=== PATIENT | male | born 1945 | race Caucasian/White ===

== ENCOUNTER → 2019-04-30 11:18 | Outpatient (CLI) | payer MEDICARE, OTHER, SELFPAY ==
[2019-04-30 12:41] LABS: Cholesterol 152 mg/dL (140-199); HDL Cholesterol 28 mg/dL (40-60); LDL Cholesterol Calculated 93 mg/dL (<100); Triglycerides 154 mg/dL (35-150)
== END ==
PROVIDERS: Visit Provider Internal Medicine Cardiovascular Disease
DX: E78.5 Hyperlipidemia, unspecified (principal)
CPT/HCPCS: 36415; 80061

== ENCOUNTER → 2019-08-06 09:33 | Outpatient (CLI) | payer MEDICARE, OTHER, SELFPAY ==
[2019-08-06 10:39] LABS: Add Manual Diff / Slide Review NO; Basophils Absolute Auto 100 /uL (0-100); Basophils Percent Auto 0.9 % (0-2); Eosinophils Absolute Auto 300 /uL (0-450); Hematocrit 47.5 % (41-53); Lymphocytes Absolute Auto 1900 /uL (1100-4500); Lymphocytes Percent Auto 34.1 % (25-40); Mean Corpuscular HGB Conc 33.7 % (30-36); Mean Corpuscular Hemoglobin 29.1 PG (26-34); Mean Corpuscular Volume 86.5 fL (80-100); Monocytes Absolute Auto 600 /uL (0-900); Monocytes Percent Auto 10.6 % (3-14); Neutrophils Absolute Auto 2700 /uL (1500-7000); Neutrophils Percent Auto 49.4 % (50-75); Platelet Count 240 X10^3/uL (150-400); Red Blood Cell Count 5.49 X10^6/uL (4.5-5.9); White Blood Cell Count 5.6 X10^3/uL (4.5-11.0)
[2019-08-06 11:12] LABS: Blood Urea Nitrogen 18 mg/dL (9-20); Carbon Dioxide 32 mmol/L (22-32); Chloride 102 mmol/L (98-107); Cholesterol 105 mg/dL (140-199); Estimated Glomerular Filt Rate > 60.0 mL/min (>60); Glucose 82 mg/dL (80-110); HDL Cholesterol 27 mg/dL (40-60); HEMOLYSIS 37 (0-50); LDL Cholesterol Calculated 58 mg/dL (<100); Potassium 4.6 mmol/L (3.4-5.1); Sodium 140 mmol/L (137-145); Triglycerides 99 mg/dL (35-150)
== END ==
PROVIDERS: Visit Provider Internal Medicine Cardiovascular Disease
DX: E78.5 Hyperlipidemia, unspecified (principal); I48.0 Paroxysmal atrial fibrillation; I25.10 Atherosclerotic heart disease of native coronary artery without angina pectoris
CPT/HCPCS: 36415; 80048; 80061; 85025

== ENCOUNTER 2020-12-03 01:54 | Emergency (ER) | payer MEDICARE, OTHER, SELFPAY ==
[2020-12-03 02:05] VITALS: BP 152/75; PULSE 69; RESP 17; TEMP 36.7; O2SAT 96; BMI 39.3
--- NOTE | 2020-12-03 02:09 | ED.GENADULT ---
HPI - General Adult General Chief complaint: Back Pain/Injury Stated complaint: Back Pain Time Seen by Provider: 12/03/20 01:57 Source: patient Mode of arrival: EMS Limitations: no limitations History of Present Illness HPI narrative: 75-year-old male with known lumbar spine disc herniation who has seen orthopedic spine in the past and has had an MRI in the past who is here for evaluation of lower back pain and numbness to his right lower extremity. He states he was lying in bed last night in the numbness to his right lower extremity seem to get worse. He tried to get out of bed and could not because of the numbness. He lowered himself to the ground. He did not fall. He did not hit his head. He arrived by a EMS for evaluation. Related Data Previous Rx's Medication Instructions Recorded methylprednisolone [Medrol (Roman)] See Rx Instructions .ROUTE 12/03/20 .COMPLEX #21 ea Allergies Allergy/AdvReac Type Severity Reaction Status Date / Time No Known Drug Allergies Allergy Verified 12/03/20 02:05 Review of Systems Constitutional Constitutional: Denies fever(s) and Denies headache(s) ENT Ears, Nose, Mouth, and Throat: Denies vertigo and Denies headache(s) Genitourinary Genitourinary: Denies dysuria, Denies urinary frequency, Denies urinary hesitancy and Denies urinary incontinence Genitourinary: Denies urinary frequency, Denies dysuria, Denies urinary incontinence and Denies urinary hesitancy Musculoskeletal Musculoskeletal: Reports back pain, Reports numbness and Reports radiating pain into limb Integumentary/Breasts Skin/Breast: Denies rash Neurologic Neurologic: Denies vertigo, Denies headache(s) and Reports numbness Patient History Medical History Lower back pain Social History Smoking Status: Never smoker Exam Initial Vital Signs Initial Vital Signs: Vital Signs Temperature 98.1 F 12/03/20 02:05 Pulse Rate 69 12/03/20 02:05 Respiratory Rate 17 12/03/20 02:05 Blood Pressure 152/75 H 12/03/20 02:05 Pulse Oximetry 96 12/03/20 02:05 Const General: cooperative Limitations: mental status not altered HENMT Head: normal to inspection and normocephalic Resp Effort & Inspection: normal respiratory effort Cardio Rate: regular rate Skin Lesions: no lesions Rashes: no rashes Neuro Sensory Exam: other (Sensory deficits to light touch over the lateral aspect of his right leg) Extrem General: capillary refill normal Psych Appearance: grossly normal and well kempt Course Orders Ordered: Discontinued Medications Hydromorphone HCl (Hydromorphone 1 Mg Inj) 1 mg IM NOW ONE Stop: 12/03/20 02:11 Last Admin: 12/03/20 02:44 Dose: 1 mg Documented by: Ketorolac Tromethamine (Ketorolac 60 Mg/2 Ml Vial) 30 mg IM NOW ONE Stop: 12/03/20 02:11 Last Admin: 12/03/20 02:17 Dose: 30 mg Documented by: Vital Signs Vital signs: Vital Signs - 8 hr 12/03/20 02:05 Temperature 98.1 F Pulse Rate 69 Respiratory Rate 17 Blood Pressure 152/75 H Pulse Oximetry 96 Medical Decision Making [facility] Narrative Medical decision making narrative: Patient without symptoms that would make me concerned for cauda equina. He is afebrile. No indication for radiologic studies. He did not fall out of bed today. Was given Toradol pain medication. Was sent home with a steroid dose pack. Is given return precautions and follow-up instructions. He expressed understanding and agreement. Discharge Plan Departure Patient Disposition: Home Clinical Impression: Acute back pain with radiculopathy Instructions: DI for Back Pain With Sciatica Activity Restrictions/Additional Instructions: I do recommend that you continue with all of your medications as directed. Start taking the prednisone as directed. Contact your primary doctor and also your orthopedic hub inventory specialist for follow-up. Return to the emergency department for any new or worsening symptoms Prescriptions: New methylprednisolone [Medrol (Roman)] 4 mg tablets,dose pack See Rx Instructions .ROUTE .COMPLEX Qty: 21 RF: 0
[2020-12-03] MEDS: KETOROLAC 60 MG/2 ML VIAL 30 MG IM (02:17)
[2020-12-03] MEDS: HYDROMORPHONE 1 MG INJ IM (02:44)
[2020-12-03 03:06] VITALS: BP 131/60; PULSE 60; RESP 18; O2SAT 96
== END 2020-12-03 03:13 | disposition home or self-care (01) ==
PROVIDERS: Emergency Provider Emergency Medicine
DX: M51.17 Intervertebral disc disorders with radiculopathy, lumbosacral region (principal); R20.2 Paresthesia of skin
CPT/HCPCS: 99283; J1170; J1885

== ENCOUNTER → 2021-01-02 09:08 | Outpatient (CLI) | payer MEDICARE, OTHER, SELFPAY ==
[2021-01-02 13:08] LABS: COVID19 -Nasal RAPID Negative (Negative)
== END ==
PROVIDERS: PCP Family Medicine Sports Medicine; Visit Provider Physician Assistant
DX: Z20.822 Contact with and (suspected) exposure to COVID-19 (principal)
CPT/HCPCS: 87635

== ENCOUNTER 2021-01-04 11:22 | Inpatient (IN) | payer MEDICARE, OTHER, SELFPAY ==
[2020-12-29 08:23] VITALS: BMI 40.0
[2021-01-04] VITALS (16 sets, daily range): BP systolic 110–160; BP diastolic 55–96; PULSE 63–91; RESP 12–24; TEMP 36.3–37.1; O2SAT 93–99; BMI 39.3
--- NOTE | 2021-01-04 | DI.RAD.S_ITS ---
PROCEDURE: XR LUMBAR SPINE 2-3V INDICATIONS: L4-5 TLIF, L3-4 GANESH TECHNIQUE: 2 intraoperative fluoroscopic views of the lumbar spine were acquired. COMPARISON: [facility], , XR LUMBAR SPINE 2 OR 3 VIEWS, 04/22/2020, 13:27. FINDINGS: 2 limited intraoperative fluoroscopic images of the lumbar spine were acquired demonstrating interval posterior fusion of L4 and L5 with posterior paraspinal cindy and pedicular screw fixation. Status post L4-5 discectomy with placement interbody spacer device. Alignment appears stable compared to preoperative radiographic imaging. No evidence for acute hardware complication. IMPRESSION: Intraoperative fluoroscopic support for posterior spinal fusion of L4 and L5 without evidence for acute hardware complication. Please see operative report for further details. Dictated by: Hemant Dao M.D. on 01/04/2021 at 22:45 Approved by: Hemant Dao M.D. on 01/04/2021 at 22:49
--- NOTE | 2021-01-04 12:22 | SUR.PREOP ---
Pt difficult IV start. JOHANNA Richardson called to place line. Reported off to Katelyn Altamirano RN.
[2021-01-04] MEDS: LACTATED RINGERS 1,000 ML 100 ML IV ×3 (13:17→19:48)
--- NOTE | 2021-01-04 13:18 | SUR.PREOP ---
JOHANNA Richardson was unable to start IV under ultrasound. Total IV attempts = 7. 24 gauge started by JOHANNA Thomason.
[2021-01-04] MEDS: ACETAMINOPHEN 325 MG TABLET 975 MG PO (13:32)
--- NOTE | 2021-01-04 15:05 | PM.PREOP ---
Pre-operative Note COVID-19 COVID-19 status: Negative Result date/Date tested (Pos, Neg/Pending): 01/02/21 Interval Note History & Physical reviewed/Exam performed by Physician: Yes Changes to H&P: No
[2021-01-04] MEDS: CEFAZOLIN 2 GM/100 ML FROZ.PIGGY IV ×2 (16:04→23:36)
--- NOTE | 2021-01-04 16:18 | P.PCN_ITS ---
Procedures Date/Time Date of procedure: 01/04/21 Time of procedure: 15:55 Intubation Additional comments: DIFFICULT AIRWAY LETTER Name: Keith Nguyen Jr : 1945 Surgery: left L3-4 hemilaminectomy, L4-5 TLIF with posterior instrumentation by Dr. Crooks, 01/04/2021 You have been found to have a difficult airway. This means that it was challenging for an Anesthesiologist to put in a breathing tube. This may happen in the future as well, so please bring this letter or at least tell future providers of this issue. Exam: full boyd, BMI 39, mallampati score3 with small mouth opening, adequate prognathia, good thyromental distance and limited neck range of motion. Narrative: A general anesthetic with endotracheal tube was planned, and equipment for difficult airway available as exam was concerning. Smooth IV induction after 3 minutes of pre-oxygenation. Mask ventilation difficult with two hands and oropharyngeal airway (boyd affected seal). The glidescope was able to be inserted into mouth opening, but it was tight. An S4 blade on the glidescope was used. An 8.0 endotracheal tube was placed with use of stylette. (+) visualization of the tube through the cords and confirmation with capnograp hy. Successful technique: glidescope S4 blade with use of a stylette. Very Respectfully, Vero DAVENPORT Anesthesiologist
--- NOTE | 2021-01-04 16:23 | SUR.OPER ---
Prone on spine table, head in foam head support, padded chest and pelvic supports, gel pad at knees, lower legs supported by pillows; nipples, genitalia and toes free of pressure, arms secured on foam padded arm boards at <90 degrees abduction. Tape over blanket at thigh secured to table.
[2021-01-04] MEDS: BUPIVACAINE 0.25% W/ EPI (PF) 10 ML VIAL 30 ML INJ (16:32)
[2021-01-04] MEDS: BUPIVACAINE LIPOSOME 266 MG/20 ML VIAL INJ (16:32)
--- NOTE | 2021-01-04 18:58 | PM.OP.1 ---
Operative Date/Time/Diagnoses Date of procedure: 01/04/21 Time of procedure: 15:58 Pre-op diagnosis: 1. L4-5 spondylolisthesis 2. L3-4, L4-5 spinal stenosis with neurogenic claudication Post-op diagnosis: same Procedure & Clinicians Procedure: 1. L4-5 Postero-lateral and posterior interbody fusion 2. L4-5 interbody cage placement. 3. L4-5 decompressive laminectomy with bilateral facetecomies 4. L4-5 Posterior non-segmental instrumentation 5. L3-4 right hemilaminectomy 6. [place] of bone marrow from iliac crest 7. Utilization of microsurgical technique and operating microscope Same procedure as scheduled: Yes Indications: Patient has been having chronic back pain and worsening lumbar radiculopathy. Patient failed multiple conservative management with worsening pain weakness and numbness in her lower extremity. Patient has been having difficulty performing activity of daily living. After discussing risks benefits of treatment options, patient elected proceed with surgery. Surgeon: Andie Crooks Remelt Furnace Expediter: Erlin Rosario Click Yes if Unassisted: No Anesthesia Type: General Operative Notes Closure Type: primary Specimen(s): none sent Prosthetic devices, grafts, tissues, transplants, or devices: Globus revolve screws, Rise cage Estimated Blood Loss (mL): 50 Blood products transfused: none Procedure in detail: Patient was seen in the preoperative area. Risks and benefits of the surgery was discussed with the patient. Informed consent was obtained from the patient and placed in the chart. Surgical site was marked. Patient was taken to the operative room. General anesthesia was administered. Prophylactic antibiotic was given to the patient less than 30 min before the incision was made. Patient was placed into a prone position on the Solitario table. Patient's back was then prepped and draped in the sterile fashion. Time-out was performed at this time. Using AP and lateral C-arm imaging the interval between L3-4 L4-5 was identified and marked on patient's back. A 2 inch incision 2 in from midline was made on the right side first. The fascia was incised in line with skin incision. Globus MARS retractors was placed inside the incision and docked onto the L4 lamina. Using microsurgical technique and operating microscope, a L4 laminectomy and L4-5 facetectomy was performed using a Kerrison rongeur. The disc space at L4-5 was identified. And a total diskectomy was performed at L4-5 level. The endplates were decorticated using a rasp and shaver. The total diskectomy and decortication was performed at L4-5 level in order to to accomplish a L4-5 fusion. The local bone from the laminectomy and facetectomy was saved for local bone grafting. After the total diskectomy and decortication was completed, Globus Trifecta bone graft material was combined with local bone that was harvested earlier. At this time, a separate skin is incision was made over the iliac crest. A Jamshidi needle was inserted into the iliac crest through a separate skin incision. 5 cc of bone marrow aspiration was obtained through the separate skin incision using a Jamshidi needle from the iliac crest. The bone marrow aspiration was combined with local bone and the Trifecta bone grafting material. The bone grafting material was placed into the L4-5 interbody space along with a expandable cage. The cage was expanded to its maximum height using the torque limiting screwdriver. At this time the MARS retractor was redirected over the L3 lamina. Using microsurgical technique and operating microscope, a L3-4 heminectomy was performed using the Kerrison rongeur. The ligamentum flavum was also resected at the side of the hemilaminectomy for further decompression of the epidural space. At this time a mirror image incision was made on the Left side. The fascia was incised in line with the skin incision. Globus MARS retractor was inserted and docked onto the [] posterolateral gutter. Using the power drill, posterior-lateral decortication was performed at [] level until bleeding cortical bone was identified. The remaining bone grafting material was placed into the L4-5 posterior lateral gutter he order to accomplish posterolateral fusion at the L4-5 level. Using the double C-arm technique, pedicle screws were placed into the L4 and L5 pedicles bilaterally. This was done by placing the Jamshidi needle into the pedicles, then placing the guidewires over the Jamshidi needle, and finally placing the cannulated screws over the guidewires bilaterally. After the pedicle screws were placed, 2 titanium rods was locked into the heads of the pedicle screws using locking caps and torque limiting screwdriver. After all the hardware was placed, and confirmed with AP and lateral C-arm imaging, the wound was then irrigated with sterile normal saline and packed with Ray-Hector gauze for 3 min to accomplish hemostasis. After the gauze was removed the deep fascia was closed with #1 Vicryl suture. The subcutaneous layer was closed with 2-0 Vicryl. The skin was closed with skin teja. Patient tolerated the procedure well. There were no complications. Complications: none Post-operative Condition: stable Disposition: PACU Plan for aftercare: Admit to inpatient hospital
[2021-01-04] MEDS: fentaNYL 100 MCG/2 ML INJ IV ×2 (19:20→19:32)
[2021-01-04] MEDS: HYDROMORPHONE 2 MG INJ IV ×4 (19:23→20:04)
[2021-01-04] MEDS: OXYCODONE IR 5 MG TABLET PO (20:01)
--- NOTE | 2021-01-04 20:59 | SUR.PHASEI ---
Pt arrived with oral airway, placed on nasal cannula 02, airway out when more awake. c/o pain and medicated with fentanyl and dilaudid, when more awake and tolerating ice chips, given po pain med. Neuro checks WNL, dressing remained c/d/i. transported to room 218, left with Serena in stable condition, bed low and locked, SCD's on and call duggan in reach, pt instructed in use, voiced an understanding.
[2021-01-04] MEDS: SODIUM CHLORIDE 0.9% 1,000 ML 100 ML IV (22:07)
[2021-01-04] MEDS: SENNOSIDES 8.6 MG TABLET 17.2 MG PO (22:08)
[2021-01-04] MEDS: ACETAMINOPHEN 325 MG TABLET 650 MG PO (22:08)
[2021-01-04] MEDS: DOCUSATE 100 MG CAPSULE PO (22:08)
[2021-01-05] VITALS (9 sets, daily range): BP systolic 102–135; BP diastolic 18–78; PULSE 67–96; RESP 16–20; TEMP 36.2–37.6; O2SAT 94–99
[2021-01-05] MEDS: OXYCODONE IR 5 MG TABLET 10 MG PO ×6 (02:30→20:23)
[2021-01-05] MEDS: ACETAMINOPHEN 325 MG TABLET 650 MG PO (05:30)
[2021-01-05] MEDS: DOCUSATE 100 MG CAPSULE PO ×2 (08:59→20:23)
[2021-01-05] MEDS: ROSUVASTATIN 10 MG TABLET 2.5 MG PO (08:59)
[2021-01-05] MEDS: lisinopriL 5 MG TABLET 10 MG PO (08:59)
[2021-01-05] MEDS: CEFAZOLIN 2 GM/100 ML FROZ.PIGGY IV (09:01)
[2021-01-05] MEDS: MAGNESIUM HYDROXIDE 30 ML UDC PO (09:26)
--- NOTE | 2021-01-05 10:53 | OT.IP.EVAL ---
Current Diagnoses Obstructive sleep apnea (adult) (pediatric) (01/04/21) Spondylolisthesis, lumbar region (01/04/21) Spinal stenosis, lumbar region with neurogenic claudication (01/04/21) Dependence on other enabling machines and devices (01/04/21) Surgery Performed Operation Date: 01/04/21 13:15 Actual Procedures p L3-4 left hemilaminectomy, L4-5 TLIF w. posterior instrumentation - Andie Crooks MD Past Medical History (Last Reviewed 01/05/21 @ 11:09 by Jian Galdamez PA-C) Arthritis Asthma Atrial fibrillation CAD (coronary artery disease) Difficult airway Difficult intravenous access HLD (hyperlipidemia) HTN (hypertension) Leg edema Lower back pain KORTNEY on CPAP Prostate cancer (~2006) Sciatica Surgical History (Last Reviewed 01/05/21 @ 11:09 by Jian Galdamez PA-C) History of arthroplasty of right knee (~2015) History of arthroscopy of left shoulder History of bilateral carpal tunnel release History of surgery (01/2020) Hx of arthroscopy of left knee Hx of heart artery stent (10/2014) Hx of knee surgery Hx of prostatectomy Hx of tonsillectomy Occupational Therapy Inpatient Evaluation/Re-Eval M1 PT/OT-IP Prior Functional Status Start: 01/05/21 11:21 Freq: NEEDED Status: Active Protocol: Document 01/05/21 11:21 [facility] (Rec: 01/05/21 11:46 [facility] [id number]) Medical Review Prior Functional Status Medical History Reviewed Yes Communication Independent Mobility and Gait Pt states at has to use a cart to help get around [employer] , otherwise does not use any devices for his ambulation needs. 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 Pt states no longer able to do yard work. Social History Household Members spouse Living Arrangements House Number of Floors (Floors) Two Floors Number of Stairs To Enter/Railing? 1/2 step pt to get to his [place] Area where there is a recliner, couch/bed, and 1/2 bath. Approx 16 steps to his bedroom and bathroom with tub/shower.8 steps with left rail up and right side 1/2 wall, and for the other 8 steps up just wall left rail. Pt states to stay downstairs for now. Home Environment High Toilet,Tub/Shower Home Equipment Four Wheel Walker,Straight Cane M2 OT-IP Current Condition Start: 01/05/21 11:21 Freq: Status: Active Protocol: Document 01/05/21 11:21 [facility] (Rec: 01/05/21 11:46 [facility] [id number]) Occupational Therapy Current Condition Current Condition Evaluation Date 01/05/21 Treatment Diagnosis s/p L3-4, Left Hemilaminectomy , L4-5 TLIF, decreased mobility Diagnosis Onset Date 01/04/21 Post Operative Precautions Lumbar Precautions Log Roll,No Twisting,Limit Bending,Lifting Restriction of 10 lbs,Gait Belt above Incisional Area M3 OT- IP Subjective and Pain Start: 01/05/21 11:21 Freq: Status: Active Protocol: Document 01/05/21 11:21 [facility] (Rec: 01/05/21 11:46 [facility] [id number]) OT- Subjective Occupational Therapy Visit Type Type Initial Evaluation Visit Start Time 09:43 Visit Stop Time 10:53 Total Visit Minutes 70 Occupational Therapy Visit Comments Patient Comments Pt willing to get up for OT eval. Patient/Caregiver Goals TO go home and be able to work again. OT Pain Assessment Pain When Pain Assessed During Mobility Pain Present Pain Present Pain Reported Location back Intensity 7 Scale Used Numeric (0 - 10) M4 OT- IP ADL's Start: 01/05/21 11:21 Freq: Status: Active Protocol: Document 01/05/21 11:21 [facility] (Rec: 01/05/21 11:46 [facility] [id number]) OT [id number]-Gvgl-[id number] Comments OT Self-Feeding Comments NOt at meal time. OT ADL-Grooming General Evaluation Areas Needing Assistance Retrieving/Set-up of Grooming Items Educated to hinge at his hips or spit into a cup to best follow his back precautions. OT ADL-Oral Care General Eval Oral Care Ability Independent OT ADL-Dressing General Eval Lower Body Dressing Ability Maximum Assistance Comments OT Dressing Comments Able to educated pt of LB dressing equipment needs of account executive sales representative and socks aid . Pt states to just wears shorts and t-shirt and slip on shoes at home. OT ADL-Toileting General Evaluation Toileting Ability Standby Assistance,Maximum Assistance Comments OT Toileting Comments SBA to stand while toileting to urinate. Pt will require MAX A for after bowel movement needs as pt states had difficulty prior and mainly just went into the shower after each bowel movement. Spoke of possibility of bidet, toilet paper aid, or get assist from his . OT ADL-Bathing Comments OT Bathing Comments The tub/shower is upstairs and pt plans on sponge bathing initially. Pt may also benefit from a shower chair/tub bench to increased ease to get into and out of the tub. M5 OT- IP IADL's Start: 01/05/21 11:21 Freq: Status: Active Protocol: Document 01/05/21 11:21 [facility] (Rec: 01/05/21 11:46 [facility] [id number]) OT-Instrumental Activities of Daily Living Home Safety Awareness Awareness of Need for Assistance at Home Good Awareness Ability to Problem Solve Emergency Able to Problem Solve Situations Medication Management Medication Management Comments Pt a little groogy at this time and best to has provide superivision initially . Money Management Money Management Comments Pt a little groogy at this time and best to has provide superivision initially . Meal Preparation Meal Preparation Caregiver Provides Assist Clergy Member Clergy Member Caregiver Provides Assist M6 OT- IP Functional Cognition Start: 01/05/21 11:21 Freq: Status: Active Protocol: Document 01/05/21 11:21 [facility] (Rec: 01/05/21 11:46 [facility] [id number]) Cognitive Factors Limiting Selfcare Function Cognitive Ability Level of Alertness Alert Patient Orientation Name,Age,Birthday,Month,Date, Year,Day of Week,Place, Situation Attention Span Ability Capable of Focused Attention, Capable of Sustained Attention Ability to Follow Commands Able to Follow One Step Commands Safety Awareness Decreased Recall of Precautions,Decreased Ability to Apply Precautions, Underestimates Need for Assistance Cognitive Comments Cognitive Assessment Comments Pt needing assist to recall back precautions and to help incorporate during ADL and mobility needs. Pt needing vc for FWW safety and for placement of hands, feet when getting up and down from surfaces. OT- Vision and Hearing OT- Hearing Assessment OT- Hearing Assessment WFL OT- Vision Assessment Visual Acuity Glasses All The Time M7 OT- IP Mobility and Balance Start: 01/05/21 11:21 Freq: Status: Active Protocol: Document 01/05/21 11:21 [facility] (Rec: 01/05/21 11:46 [facility] [id number]) OT- Bed Mobility Assessment Rolling Level of Assistance Moderate Assistance Supine to Sit Supine to Sit Assist Moderate Assistance OT-Transfer Assessment Sit to and From Stand Sit to and from Stand Minimal Assistance Transfers Transfer Ability Minimal Assistance Technique Transfer Destination Bed,Chair Transfer Technique Stand Step Pivot Devices Transfer Assistive Devices Gait Belt,Front Wheeled Walker Comments Mobility Comments Use of grab bar to assist to roll and assist to get from sidelying to upright. DEVIN to stand and transfer with FWW. Pt tends to internally rotate his arms on the handles f the FWW when using FWW. OT- Gait Assessment Comments Gait Ability Comments CGA with FWW in the room. OT- Balance Assessment Sitting Balance and Reactions Static Sitting Balance Ability Normal Dynamic Sitting Balance Ability Good Standing Balance and Reactions Static Standing Balance Ability Fair M8 OT- IP Objective Assessments Start: 01/05/21 11:21 Freq: Status: Active Protocol: Document 01/05/21 11:21 [facility] (Rec: 01/05/21 11:46 [facility] [id number]) OT Strength Upper Extremity Strength Assessment Within Functional Limits OT-Muscle Tone Assessment Muscle Tone WNL Yes M9 OT- IP Assessment and Plan Start: 01/05/21 11:21 Freq: Status: Active Protocol: Document 01/05/21 11:21 [facility] (Rec: 01/05/21 11:46 [facility] [id number]) OT Summary Assessment and Plan Potential Rehabilitation Potential Good Analytic Complexity at Evaluation Low Summary OT Impairments Pain,Balance,Functional Cognition,Functional Mobility, Dressing,Toileting,Bathing, Toilet Transfers,Shower Transfers,Activity Tolerance Progress Towards Goals Progressing Toward Goals Assessment Summary Pt low complexity and main barriers are steps, pain, transitions for mobility and ADl's. Pt looking to possibly rent a hospital bed at home as his recliner is too soft and low, in addition to his couch/ bed being too low per pt. Pt progressing well so far and to continue to see pt for education of back precautions for ADl's and mobility needs. Pt looking to go home when medically stable and pending caregiver training. Goals Self-Feeding Goal Independent Grooming Goal Independent Dressing Goal Independent Toileting Goal Moderate Assistance Bathing Goal Independent Toilet Transfer Goal Independent Shower Transfer Goal Independent Patient/Caregiver Education Goal Demonstrate Post-Op Precautions,Caregiver Independent Assisting Patient Days to Meet Goals 5 Frequency of Treatment Frequency Of Treatment Once a Day Treatment Plan OT Treatment Plan ADL Training,Functional Cognition Training,Functional Mobility,Patient/Family Education,Discharge Planning Other Treatment Recommendations and Next shower Treatment Focus Discharge Recommendations OT Discharge Recommendations Home with Assistance Home Equipment Needs FWW, shower chair versus tub bench, BSC, and ? hospital bed Transportation Needs at Discharge Private Vehicle
--- NOTE | 2021-01-05 11:01 | PT.IIE ---
Current Diagnoses Obstructive sleep apnea (adult) (pediatric) (01/04/21) Spondylolisthesis, lumbar region (01/04/21) Spinal stenosis, lumbar region with neurogenic claudication (01/04/21) Dependence on other enabling machines and devices (01/04/21) Surgery Performed Operation Date: 01/04/21 13:15 Actual Procedures p L3-4 left hemilaminectomy, L4-5 TLIF w. posterior instrumentation - Andie Crooks MD Surgical History (Last Reviewed 01/05/21 @ 11:09 by Jian Galdamez PA-C) History of arthroplasty of right knee (~2015) History of arthroscopy of left shoulder History of bilateral carpal tunnel release History of surgery (01/2020) Hx of arthroscopy of left knee Hx of heart artery stent (10/2014) Hx of knee surgery Hx of prostatectomy Hx of tonsillectomy Medical History (Last Reviewed 01/05/21 @ 11:09 by Jian Galdamez PA-C) Arthritis Asthma Atrial fibrillation CAD (coronary artery disease) Difficult airway Difficult intravenous access HLD (hyperlipidemia) HTN (hypertension) Leg edema Lower back pain KORTNEY on CPAP Prostate cancer (~2006) Sciatica Physical Therapy Inpatient Evaluation/Re-Eval M1 PT/OT-IP Prior Functional Status Start: 01/05/21 11:21 Freq: NEEDED Status: Active Protocol: Document 01/05/21 11:21 [facility] (Rec: 01/05/21 11:46 [facility] [id number]) Medical Review Prior Functional Status Medical History Reviewed Yes Communication Independent Mobility and Gait Pt states at has to use a cart to help get around Home vanessa Guillermo does not need any devices for his ambulation needs. 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 Pt states no longer able to do yard work. Social History Household Members spouse Living Arrangements House Number of Floors (Floors) Two Floors Number of Stairs To Enter/Railing? 1/2 step pt to get to his [place] Area where there is a recliner, couch/bed, and 1/2 bath. Approx 16 steps to the his bedroom and bathroom 8 stepe with left rail up and right side 1/2 wall, and form the other 8 steps just wall left rail. Pt states to stay downstairs for now. 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 Pt states no longer able to do yard work. Social History Household Members spouse Living Arrangements House Number of Floors (Floors) Two Floors Number of Stairs To Enter/Railing? no steps to enter Has ~ 16 steps to bedroom level with L rail ascending Home Environment High Toilet,Tub/Shower Home Equipment Four Wheel Walker,Hand Held Shower Additional Social History Comment stated that headboard has rails/grills that pt uses to assist with bed mobility M2 PT-IP Current Condition Start: 01/05/21 12:47 Freq: NEEDED Status: Active Protocol: Document 01/05/21 11:01 AB (Rec: 01/05/21 13:07 [email or web address]) Physical Therapy Current Condition Current Condition Evaluation Date 01/05/21 Treatment Diagnosis s/p L4-5 fusion/cage/lami; L3- 4 R hemilami; difficulty in walking Onset Date 01/04/21 Precautions Lumbar Precautions Log Roll,No Twisting,Limit Bending,Lifting Restriction of 10 lbs,Gait Belt above Incisional Area M3 PT-IP Subjective Start: 01/05/21 12:47 Freq: NEEDED Status: Active Protocol: Document 01/05/21 11:01 AB (Rec: 01/05/21 13:07 [email or web address]) Subjective Physical Therapy Visit Type Type Initial Evaluation Visit Start Time 11:01 Visit Stop Time 11:46 Total Visit Minutes 45 Number of SPECIAL EDUCATION [employer] TE[employer]ER Visits 0 Physical Therapy Visit Comments Patient Comments pt is agreeable to do PT Therapy Pain Assessment Pain When Pain Assessed At Rest Pain Present Pain Present Pain Reported Location back Intensity 6 Scale Used Numeric (0 - 10) Pain Management Techniques Apply Cold,Distraction, Modification of Treatment,Re- positioning,Timing of Activity with Medications M4 PT-IP Mobility and Gait Start: 01/05/21 12:47 Freq: NEEDED Status: Active Protocol: Document 01/05/21 11:01 AB (Rec: 01/05/21 13:07 AB [id number]) PT-Bed Mobility Assessment Rolling Type of Rolling Log Rolling Level of Assist Standby Assistance Supine to Sit Supine to Sit Standby Assistance,Bedrails Sit to Supine Sit to Supine Standby Assistance,Bedrails PT-Transfer Assessment Sit to and From Stand Sit to and from Stand Minimal Assistance,1 Person Assistance Equipment Transfer Assistive Device Gait Belt,Front Wheeled Walker Orthotic/Prosthetic Devices or Brace: No Transfers Transfer Destination Bed,Chair Transfer Technique ambulated using FWW Transfer Ability Level of Assist Contact Guard Assistance,1 Person Assistance,Use of Upper Extremities Comments Mobility Comments reviewed back precautions and log roll with pt. pt completed sit to stand from chair x 2 reps requiring min A and cues for techniques. pt ambulated in room ~ 20 ft using FWW CGA and requested to use the toilet and ambulated to the toilet using FWW CGA. pt was able to maintan standing using FWW for support during toileting. ambulated out of the toilet towards the sink using FWW CGA and completed handwashing. pt ambulated towards the bed using FWW CGA. completed supine<>sit SBA with use of bed rail. pt stated that he uses his headboard at home to assist him with bed mobility. completed sit to stand from the bed min A and step transfer to chair using FWW CGA. positioned on chair. call light and table placed within reach. noted heavy UE use on FWW during transfers and ambulation. Gait Assessment Gait Gait Assistance Required: Contact Guard Assist Distance (Feet) 20 Able to Maintain Weight Bearing Status Yes During Gait Assistive Devices Assistive Device Gait Belt,Front Wheeled Walker Orthotic/Prosthetic Devices or Brace: No Gait Deviations General Gait Pattern Antalgic,Decreased Feet Clearance Factors Limiting Gait Function Factors Limiting Gait Function Decreased Activity Tolerance, Decreased Strength,Limited Range of Motion,Pain,Poor Balance,Poor Safety Awareness PT-Balance Assessment Sitting Balance and Reactions Static Sitting Balance Ability Good Dynamic Sitting Balance Ability Good Standing Balance and Reactions Static Standing Balance Ability Fair Dynamic Standing Balance Ability Fair Device Used FWW M5 PT-IP Objective Assessments Start: 01/05/21 12:47 Freq: NEEDED Status: Active Protocol: Document 01/05/21 11:01 AB (Rec: 01/05/21 13:07 [id number]) Orientation Orientation/Cognition Level of Alertness Alert Orientation Name,Age,Birthday,Month,Date, Year,Day of Week,Place, Situation Language Function Ability No Deficits Noted Safety Awareness Understands Safety Issues Memory Description No Deficits Noted Gross Range of Motion Lower Extremity ROM Assessment Within Functional Limits Strength Lower Extremity Strength Assessment Bilaterally Impaired Hip 3+/5 Coordination Assessment Gross Coordination Gross Coordination WNL Sensation Assessment Sensation Gross Sensation WNL Muscle Tone Muscle Tone WNL Yes M6 PT-IP Treatment Start: 01/05/21 12:47 Freq: NEEDED Status: Active Protocol: Document 01/05/21 11:01 AB (Rec: 01/05/21 13:07 [email or web address]) Physical Therapy Treatment Education Education Provided Precautions,Weight Bearing Status,Post-Op Packet,Safety M7 PT-IP Assessment and Plan Start: 01/05/21 12:47 Freq: NEEDED Status: Active Protocol: Document 01/05/21 11:01 AB (Rec: 01/05/21 13:07 [email or web address]) PT Summary Assessment and Plan Potential Rehabilitation Potential Good Status of Condition at Evaluation Stable Summary Impairments Pain,ROM,Strength,Balance, Coordination,Sensation,Tone, Cognition,Bed Mobility, Transfers,Gait,Activity Tolerance Assessment Summary pt requiring CGA to min A with mobility but unable to tolerate much activity and c/o pain. pt was only able to ambulate ~ 20 ft with heavy UE support on FWW during ambulation. pt plans to go home with spouse to assist. caregiver training will be conducted when appropriate. stair climbing training will also be conducted prior to d/c . will continue to assess progress. Goals Bed Mobility Goal Independent Transfer Goal Standby Assistance Gait Goal Standby Assistance Gait Distance 150 Other Goals up/down 16 steps L rail ascending SBA Days to Meet Goals 5 Frequency of Treatment Frequency Of Treatment Twice a Day Treatment Plan Physical Therapy Treatment Plan Bed Mobility Training,Transfer Training,Gait Training, Therapeutic Exercise,Balance Retraining,Post Op Education, Discharge Planning,Hot or Cold Pack,Neuromuscular Re-ed, Coordination Retraining,Manual Therapy Precautions Lumbar Precautions Log Roll,No Twisting,Limit Bending,Lifting Restriction of 10 lbs,Gait Belt above Incisional Area Recommendations To Nursing Amount of Assist Needed 1 Person Assist Discharge Recommendations PT Discharge Recommendations Home with Assistance Transportation Needs at Discharge Private Vehicle
--- NOTE | 2021-01-05 11:08 | PM.PNPO.1 ---
Subjective Subjective Date Patient Seen: 01/05/21 Time Patient Seen: 07:39 Interval history: Pain mild to moderate. Denies fever chills. No nausea vomiting. Exam Vital Signs (past 8 hours): - 01/05/21 05:12 01/05/21 07:55 Temperature 97.3 F L 97.2 F L Pulse Rate 72 67 Respiratory Rate 18 16 Blood Pressure 135/75 132/72 Pulse Oximetry 97 99 Oxygen Delivery Method Room Air,CPAP Oxygen Flow Rate 0 Narrative Exam Narrative: 75-year-old male sitting comfortably in the bedside chair in no apparent distress. Motor functions intact bilateral lower extremities. Sensation grossly intact to light touch bilateral lower extremities. Dressing is Clean, dry, intact.. PFSH Medical History Arthritis Asthma Atrial fibrillation CAD (coronary artery disease) Difficult airway Difficult intravenous access HLD (hyperlipidemia) HTN (hypertension) Leg edema Lower back pain KORTNEY on CPAP Prostate cancer (~2006) Sciatica Surgical History History of arthroplasty of right knee (~2015) History of arthroscopy of left shoulder History of bilateral carpal tunnel release History of surgery (01/2020) Hx of arthroscopy of left knee Hx of heart artery stent (10/2014) Hx of knee surgery Hx of prostatectomy Hx of tonsillectomy Social History household members: spouse Smoking Status: Never smoker alcohol intake: never Assessment & Plan Post-op Postoperative Procedures: Procedures Operation Date: 01/04/21 13:15 Actual Procedures Side Surgeon p L3-4 left hemilaminectomy, L4-5 TLIF w. posterior instrumentation Andie Crooks MD Patient progressing as expected. Postop day 1. Mobilize with physical therapy. Limit bending, twisting, lifting. Likely discharge home tomorrow.
--- NOTE | 2021-01-05 11:45 | CM.DANOTE ---
Addendum entered by Layla Hamilton LPN 01/05/21 11:54: Met with pt as planned and introduced self and role. Pt is found sitting up in bedside chair, getting ready to eat lunch. He confirms that he does plan to d/c to home when stable for same and with Olivia's prn assist. He says he has been getting about at the home but it has been increasing hard due to the pain and he is glad to have had the surgery now. He does live in a 2 story home with stairs but says sharla Galdamez assured him today that this should not be a problem for him. Assured him that DCP team would be following as his stay continues to assist with d/c needs as these become clearer. Original Note: Discharge Planning/Care Management\ DCP: assessment: case received and discussed in Team Rounds. EMR reviewed. Pt is a 75 year old male who admitted yesterday for a scheduled spinal surgery: TLIF with Dr. Crooks. PCP: Kareem Sears Payer: Medicare and commercial insurance Admission status: Confirmed INPT: per LIZZIE Coffey. PT and OT are ordered but will see pt for first time today and no notes are yet available. Pt has surgery very late yesterday and arrive to the acute care floor late at night. Will check in with pt now to continued the assessment process. CM Discharge Assessment Start: 01/05/21 11:44 Freq: Status: Active Protocol: Document 01/05/21 11:44 ITV (Rec: 01/05/21 11:45 ITV [id number]) Discharge Planning Assessment Advance Directives? Yes: Pt unsure Prior Living Arrangements House Household Members spouse Document 01/05/21 11:44 ITV (Rec: 01/05/21 11:45 ITV [id number]) Discharge Planning Assessment Advance Directives? Yes: Pt unsure Prior Living Arrangements House Household Members spouse Document 01/05/21 11:44 ITV (Rec: 01/05/21 11:45 ITV [id number]) Discharge Planning Assessment Advance Directives? Yes: Pt unsure History Provided By Medical Record Prior Living Arrangements House Household Members spouse Is patient alert and oriented? Yes Review Status In Process Pre-Anesthesia Assessment Start: 12/29/20 08:23 Freq: Status: Active Protocol: Document 12/29/20 08:23 CAB (Rec: 12/29/20 09:41 [facility] [id number]) Pre-Anesthesia Assessment Preferred Name Morteza Patient Information Reviewed Via Phone Assessment Assessment Completed With Patient H&P Completed Within 30 Days Yes Diagnostic Results CBC,EKG Comment Outside lab/EKG scanned to record-COVID screen @ Primary Care Provider Kareem Sears Seen Specialist in Last 12 Months Yes Specialist Seen Embryology Teacher,Emergency, Orthopedist Primary Language Chinese Sterilization Tech Required No Height 180.34 cm Weight 130.181 kg Body Mass Index (BMI) 40.0 Hearing Ability Normal Visual Assist Glasses Dentition Type Teeth, Natural Present Barriers to Learning None Hx Anesthesia Reactions Yes: I have a small mouth, it 's challenge Hx Family Anesthesia Reaction No Hx Malignant Hyperthermia No Hx Blood Transfusions No Anesthesia Review Requested No alcohol intake never Smoking Status Never smoker Substance Use Type does not use Pain Present Pain Reported Musculoskeletal Symptoms Abnormal Gait,Back Pain, Difficulty Walking,Limited Range of Motion,Myalgias, Numbness,Radiating Pain into Limb,Tingling History of Falling (Recent or History of No ) Patient is completely paralyzed or No completely immobile Mental Status Oriented to own ability Is patient on oxygen? No Does patient have FIGUEREDO/SOB Yes: Feels r/t deconditioning Hx Chest Pain Yes: Prior to 2014 Hx SOB Yes: Feels r/t deconditioning Hx Syncope or Dizziness No Anti-Coagulant Therapy Yes: ASA 81mg-pt check w/ cardiology on whether to hold Has a Embryology Teacher Yes: Dr. Ge-last visit 11/16 Cardiac Testing Yes: Echo 11/20/20 @ [facility] Hx Pacemaker/ICD No Pacemaker Rep Required? No Cardiac Clearance Received No Comment Cardiac clearance visit 11/16/20 , Echo scanned Diet Type At Home Regular dysphagia No Genitourinary Symptoms Change in Urinary Stream, Dribbling Bladder Pattern Frequency Urinary Catheter Present No Hx Urinary Self Catheterization No Diabetes No Presence of External or Internal Medical Yes: Cardiac stent, right knee Devices hardware, CPAP, urethral implant Have you had any close contact with No someone diagnosed with COVID-19? Marital Status Lives With spouse Prior Living Arrangements House Number of Floors (Floors) Two Floors Support System Spouse Does the Patient Have Assistance After Yes Surgery Patient Discharge Plan Description Return Home Comment Pt not advised on length of stay per surgeon Feels Safe in Current Environment Yes Been Physically Hurt or Threatened By a No Person in Current Environment Do you have thoughts of harming yourself None or others? Are you currently considering suicide? No Do you have a plan to hurt yourself or No Plan others? Do You Have Any Spiritual Beliefs That No May Affect Your HC Choices? Do You Have Any Cultural Practices That No May Affect Your HC Choices? Comment Syn[employer] Who Can We Speak to About Patient's Care Family, friends Identifying Code for Release of Patient Declines to issue Information Health Care Proxy/Next of Kin Olivia () Health Care Proxy Emergency Contact Name Olivia () Florentino (son) Emergency Contact Phone Number Olivia: [phone] Florentino: Advance Directives? Yes: Pt unsure Requested Patient Bring Advanced Yes Directives DOS Power of Bus Monitor No: Pt unsure PAC Instructions Bring CPAP/BIPAP,Durable medical equipment,Medications to take/avoid,Nasal antibiotic ,No ETOH/petroleum product on skin DOS,NPO,Pre-surgical wash ,Sensory aids,Sturdy shoes/ comfortable clothes,Do not bring valuables and remove jewelry
[2021-01-05] MEDS: hydrOXYzine pamoate 25 MG CAPSULE PO ×2 (13:29→20:57)
[2021-01-05] MEDS: HYDROMORPHONE 0.5 MG INJ IV ×4 (13:43→23:32)
--- NOTE | 2021-01-05 15:20 | PT-IP ANOTE ---
checked on pt x 2 but pt continues to refuse PT. c/o increase back pain and stated that he just wants to rest at this time.
[2021-01-05] MEDS: SENNOSIDES 8.6 MG TABLET 17.2 MG PO (20:23)
[2021-01-06] MEDS: ACETAMINOPHEN 325 MG TABLET 650 MG PO ×4 (00:57→23:13)
[2021-01-06] MEDS: OXYCODONE IR 5 MG TABLET 10 MG PO ×3 (00:57→08:39)
[2021-01-06] MEDS: HYDROMORPHONE 0.5 MG INJ IV ×2 (03:08→10:04)
[2021-01-06 04:55] VITALS: BP 129/65; PULSE 62; RESP 16; TEMP 36.1; O2SAT 97
--- NOTE | 2021-01-06 07:39 | PM.PNPO.1 ---
Subjective Subjective Date Patient Seen: 01/06/21 Time Patient Seen: 07:40 Interval history: Pain is moderate. Denies fever or chills. No nausea or vomiting. Patient having little more pain than yesterday. Exam Vital Signs (past 8 hours): - 01/05/21 23:41 01/06/21 04:55 Temperature 98.8 F 97.0 F L Pulse Rate 69 62 Respiratory Rate 16 16 Blood Pressure 110/51 L 129/65 Pulse Oximetry 94 97 Oxygen Delivery Method Room Air,CPAP Oxygen Flow Rate 0 Narrative Exam Narrative: 75-year-old male resting comfortably in bed in no apparent distress. Motor functions intact bilateral lower extremities. Sensation grossly intact to light touch. [facility] Medical History Arthritis Asthma Atrial fibrillation CAD (coronary artery disease) Difficult airway Difficult intravenous access HLD (hyperlipidemia) HTN (hypertension) Leg edema Lower back pain KORTNEY on CPAP Prostate cancer (~2006) Sciatica Surgical History History of arthroplasty of right knee (~2015) History of arthroscopy of left shoulder History of bilateral carpal tunnel release History of surgery (01/2020) Hx of arthroscopy of left knee Hx of heart artery stent (10/2014) Hx of knee surgery Hx of prostatectomy Hx of tonsillectomy Social History household members: spouse Smoking Status: Never smoker alcohol intake: never Assessment & Plan Post-op Postoperative Procedures: Procedures Operation Date: 01/04/21 13:15 Actual Procedures Side Surgeon p L3-4 left hemilaminectomy, L4-5 TLIF w. posterior instrumentation Andie Crooks MD Postop day 2 status post L4-L5 posterolateral and posterior interbody fusion interbody cage placement, decompressive laminectomy with bilateral facetectomies, posterior nonsegmental instrumentation, right hemilaminectomy. Mobilize with physical therapy. Continue to work on pain management. Limit bending, twisting, lifting. Patient refused physical therapy twice yesterday evening secondary to increased back pain and stated that he does want to rest. Patient's BMI is 39.3.
[2021-01-06 07:45] VITALS: BP 121/56; PULSE 64; RESP 17; TEMP 36.4; O2SAT 97
[2021-01-06] MEDS: lisinopriL 5 MG TABLET 10 MG PO (08:39)
[2021-01-06] MEDS: hydrOXYzine pamoate 25 MG CAPSULE PO (08:39)
[2021-01-06] MEDS: ROSUVASTATIN 10 MG TABLET 2.5 MG PO (08:40)
[2021-01-06] MEDS: DOCUSATE 100 MG CAPSULE PO ×2 (08:40→21:18)
[2021-01-06 11:15] VITALS: BP 120/57; PULSE 63; RESP 16; TEMP 36.6; O2SAT 98
--- NOTE | 2021-01-06 12:29 | PT.IPTN ---
Current Diagnoses Obstructive sleep apnea (adult) (pediatric) (01/04/21) Spondylolisthesis, lumbar region (01/04/21) Spinal stenosis, lumbar region with neurogenic claudication (01/04/21) Dependence on other enabling machines and devices (01/04/21) Surgery Performed Operation Date: 01/04/21 13:15 Actual Procedures p L3-4 left hemilaminectomy, L4-5 TLIF w. posterior instrumentation - Andie Crooks MD Physical Therapy Treatment Note M2 PT-IP Current Condition Start: 01/05/21 12:47 Freq: NEEDED Status: Active Protocol: Document 01/05/21 11:01 AB (Rec: 01/05/21 13:07 AB [id number]) Physical Therapy Current Condition Current Condition Evaluation Date 01/05/21 Treatment Diagnosis s/p L4-5 fusion/cage/lami; L3- 4 R hemilami; difficulty in walking Onset Date 01/04/21 Precautions Lumbar Precautions Log Roll,No Twisting,Limit Bending,Lifting Restriction of 10 lbs,Gait Belt above Incisional Area M3 PT-IP Subjective Start: 01/05/21 12:47 Freq: NEEDED Status: Active Protocol: Document 01/06/21 11:58 SP (Rec: 01/06/21 13:22 SP [id number]) Subjective Physical Therapy Visit Type Type Treatment Note Visit Start Time 11:58 Visit Stop Time 12:29 Total Visit Minutes 31 Notes Pt called on 1st attempt to set up caregiver training at 1130. not in attendence when returned x2. Nurse and PLANNER CHIEF provided additional physical assistance during tx. Number of TECHNICAL COMMUNICATOR Visits 1 Physical Therapy Visit Comments Patient Comments Pt lethargic but agreeable to working with therapy on 3rd attempt. Therapy Pain Assessment Pain When Pain Assessed During Mobility Pain Present Pain Present Pain Reported Location back Scale Used not quantified Description With Movement Pain Behaviors Facial Grimacing,Holding Area, Moaning Pain Management Techniques Modification of Treatment,Re- positioning,Timing of Activity with Medications M4 PT-IP Mobility and Gait Start: 01/05/21 12:47 Freq: NEEDED Status: Active Protocol: Document 01/06/21 11:58 SP (Rec: 01/06/21 13:22 SP [id number]) PT-Bed Mobility Assessment Rolling Type of Rolling Log Rolling,Bilateral Level of Assist Maximal Assistance,2 Person Assistance Supine to Sit Supine to Sit Maximum Assistance,2 Person Assistance,Head of Bed Elevated,Bedrails Sit to Supine Sit to Supine Maximum Assistance,1 Person Assistance,2 Person Assistance Scooting Scooting to Edge of Bed Maximum Assistance PT-Transfer Assessment Sit to and From Stand Sit to and from Stand Maximum Assistance,2 Person Assistance,Use of Upper Extremities Equipment Transfer Assistive Device Gait Belt,Front Wheeled Walker Orthotic/Prosthetic Devices or Brace: No Transfers Transfer Destination Bed Transfer Technique Pt side step to R at EOB using FWW Transfer Ability Level of Assist Maximum Assistance,2 Person Assistance,Use of Upper Extremities Comments Mobility Comments Pt very lathargic this late am tx, premedicated prior to tx. Instructed LE heel slides w/ Mod A x3 reps BLE. Completed log roll Max x2 person w/ contact assist reach for bed rail L SL> sitting Max Ax2 person, scoot forward to EOB Max Ax3 w/ use of transfer pad . Sitting balance Max A x1 with heavy UE WB on bed and cuing for trunk wt shift forward BLE support on floor. Sit<> stand Max A x2 heavy WB through BUE, cued for knee extension/ tall posture and able stand for 1 min, wt shift but not lift LEs. Sit>stand Max x2 and lateral side step 1 .5 ft Max A x2 inch at time toward HOB, assist at times for wt shift and FWW repositioning with max cuing for BLE sequencing each. Sit>L SL>supine Max A x3 persons. Pt required MaxA x2 for centering trunk in bed usign transfer pad. Pt had call light and all needs in reach before left, nurse in room. Gait Assessment Gait Gait Assistance Required: Contact Guard Assist Distance (Feet) 2 Able to Maintain Weight Bearing Status Yes During Gait Assistive Devices Assistive Device Gait Belt,Front Wheeled Walker Orthotic/Prosthetic Devices or Brace: No Gait Deviations General Gait Pattern Antalgic,Decreased Stride Length,Decreased Feet Clearance,Flexed Trunk,Lateral Trunk Lean,Step-to Gait,Wide Based Gait Factors Limiting Gait Function Factors Limiting Gait Function Decreased Activity Tolerance, Decreased Strength,Difficulty Following Directions,Limited Range of Motion,Pain,Poor Balance,Poor Safety Awareness Comments Gait Comments See mobility comments for details. Stair Climbing Assessment Comments Stair Climbing Comments Unable at this time. PT-Balance Assessment Sitting Balance and Reactions Static Sitting Balance Ability Poor Dynamic Sitting Balance Ability Poor Standing Balance and Reactions Static Standing Balance Ability Poor Dynamic Standing Balance Ability Poor Device Used FWW M5 PT-IP Objective Assessments Start: 01/05/21 12:47 Freq: NEEDED Status: Active Protocol: Document 01/05/21 11:01 AB (Rec: 01/05/21 13:07 AB [id number]) Orientation Orientation/Cognition Level of Alertness Alert Orientation Name,Age,Birthday,Month,Date, Year,Day of Week,Place, Situation Language Function Ability No Deficits Noted Safety Awareness Understands Safety Issues Memory Description No Deficits Noted Gross Range of Motion Lower Extremity ROM Assessment Within Functional Limits Strength Lower Extremity Strength Assessment Bilaterally Impaired Hip 3+/5 Coordination Assessment Gross Coordination Gross Coordination WNL Sensation Assessment Sensation Gross Sensation WNL Muscle Tone Muscle Tone WNL Yes M6 PT-IP Treatment Start: 01/05/21 12:47 Freq: NEEDED Status: Active Protocol: Document 01/06/21 11:58 SP (Rec: 01/06/21 13:22 SP [id number]) Physical Therapy Treatment Education Education Provided Precautions,Weight Bearing Status,Safety M7 PT-IP Assessment and Plan Start: 01/05/21 12:47 Freq: NEEDED Status: Active Protocol: Document 01/06/21 11:58 SP (Rec: 01/06/21 13:22 SP [id number]) PT Summary Assessment and Plan Potential Rehabilitation Potential Good Status of Condition at Evaluation Stable Summary Impairments Pain,ROM,Strength,Balance, Coordination,Sensation,Tone, Cognition,Bed Mobility, Transfers,Gait,Activity Tolerance Progress Towards Goals Slow Progress due to Pain,Slow Progress due to Activity Tolerance Assessment Summary Pt required significant increase in physical assist this am tx, max A x2-3 persons during all mobility and use of fWW. Nurse reported pt maybe lethargic due to medication. At this time recommending skilled rehab. Will continue to assess progress this pm. Goals Bed Mobility Goal Independent Transfer Goal Standby Assistance Gait Goal Standby Assistance Gait Distance 150 Other Goals up/down 16 steps L rail ascending SBA Days to Meet Goals 5 Frequency of Treatment Frequency Of Treatment Twice a Day Treatment Plan Physical Therapy Treatment Plan Bed Mobility Training,Transfer Training,Gait Training, Therapeutic Exercise,Balance Retraining,Post Op Education, Discharge Planning,Hot or Cold Pack,Neuromuscular Re-ed, Coordination Retraining,Manual Therapy Other Recommendations and Next Treatment Bed mobility, transfers, gait Focus using fWW, stair mgt if able, caregiver training when appropriate. Precautions Lumbar Precautions Log Roll,No Twisting,Limit Bending,Lifting Restriction of 10 lbs,Gait Belt above Incisional Area Recommendations To Nursing Amount of Assist Needed 2 Person Assist,3 or More Person Assist Discharge Recommendations PT Discharge Recommendations Home vs SNF Transportation Needs at Discharge Private Vehicle,Wheelchair/ Cabulance
--- NOTE | 2021-01-06 12:29 | PT.IPTN ---
Current Diagnoses Obstructive sleep apnea (adult) (pediatric) (01/04/21) Spondylolisthesis, lumbar region (01/04/21) Spinal stenosis, lumbar region with neurogenic claudication (01/04/21) Dependence on other enabling machines and devices (01/04/21) Surgery Performed Operation Date: 01/04/21 13:15 Actual Procedures p L3-4 left hemilaminectomy, L4-5 TLIF w. posterior instrumentation - Andie Crooks MD Physical Therapy Treatment Note M2 PT-IP Current Condition Start: 01/05/21 12:47 Freq: NEEDED Status: Active Protocol: Document 01/05/21 11:01 AB (Rec: 01/05/21 13:07 AB [id number]) Physical Therapy Current Condition Current Condition Evaluation Date 01/05/21 Treatment Diagnosis s/p L4-5 fusion/cage/lami; L3- 4 R hemilami; difficulty in walking Onset Date 01/04/21 Precautions Lumbar Precautions Log Roll,No Twisting,Limit Bending,Lifting Restriction of 10 lbs,Gait Belt above Incisional Area M3 PT-IP Subjective Start: 01/05/21 12:47 Freq: NEEDED Status: Active Protocol: Document 01/06/21 16:11 SP (Rec: 01/06/21 13:22 SP [id number]) Subjective Physical Therapy Visit Type Type Treatment Note Visit Start Time 11:58 Visit Stop Time 12:29 Total Visit Minutes 31 Notes Pt called on 1st attempt to set up caregiver training at 1130. not in attendence when returned x2. Nurse and SECONDARY SET UP MAN provided additional physical assistance during tx. Number of POWER SUPERINTENDENT Visits 1 Physical Therapy Visit Comments Patient Comments Pt lethargic but agreeable to working with therapy on 3rd attempt. Therapy Pain Assessment Pain When Pain Assessed During Mobility Pain Present Pain Present Pain Reported Location back Scale Used not quantified Description With Movement Pain Behaviors Facial Grimacing,Holding Area, Moaning Pain Management Techniques Modification of Treatment,Re- positioning,Timing of Activity with Medications M4 PT-IP Mobility and Gait Start: 01/05/21 12:47 Freq: NEEDED Status: Active Protocol: Document 01/06/21 16:11 SP (Rec: 01/06/21 13:22 SP [id number]) PT-Bed Mobility Assessment Rolling Type of Rolling Log Rolling,Bilateral Level of Assist Maximal Assistance,2 Person Assistance Supine to Sit Supine to Sit Maximum Assistance,2 Person Assistance,Head of Bed Elevated,Bedrails Sit to Supine Sit to Supine Maximum Assistance,1 Person Assistance,2 Person Assistance Scooting Scooting to Edge of Bed Maximum Assistance PT-Transfer Assessment Sit to and From Stand Sit to and from Stand Maximum Assistance,2 Person Assistance,Use of Upper Extremities Equipment Transfer Assistive Device Gait Belt,Front Wheeled Walker Orthotic/Prosthetic Devices or Brace: No Transfers Transfer Destination Bed Transfer Technique Pt side step to R at EOB using FWW Transfer Ability Level of Assist Maximum Assistance,2 Person Assistance,Use of Upper Extremities Comments Mobility Comments Pt very lathargic this late am tx, premedicated prior to tx. Instructed LE heel slides w/ Mod A x3 reps BLE. Completed log roll Max x2 person w/ contact assist reach for bed rail L SL> sitting Max Ax2 person, scoot forward to EOB Max Ax3 w/ use of transfer pad . Sitting balance Max A x1 with heavy UE WB on bed and cuing for trunk wt shift forward BLE support on floor. Sit<> stand Max A x2 heavy WB through BUE, cued for knee extension/ tall posture and able stand for 1 min, wt shift but not lift LEs. Sit>stand Max x2 and lateral side step 1 .5 ft Max A x2 inch at time toward HOB, assist at times for wt shift and FWW repositioning with max cuing for BLE sequencing each. Sit>L SL>supine Max A x3 persons. Pt required MaxA x2 for centering trunk in bed usign transfer pad. Pt had call light and all needs in reach before left, nurse in room. Gait Assessment Gait Gait Assistance Required: Maximum Assistance,2 Person Assist Distance (Feet) 2 Able to Maintain Weight Bearing Status Yes During Gait Assistive Devices Assistive Device Gait Belt,Front Wheeled Walker Orthotic/Prosthetic Devices or Brace: No Gait Deviations General Gait Pattern Antalgic,Decreased Stride Length,Decreased Feet Clearance,Flexed Trunk,Lateral Trunk Lean,Step-to Gait,Wide Based Gait Factors Limiting Gait Function Factors Limiting Gait Function Decreased Activity Tolerance, Decreased Strength,Difficulty Following Directions,Limited Range of Motion,Pain,Poor Balance,Poor Safety Awareness Comments Gait Comments See mobility comments for details. Stair Climbing Assessment Comments Stair Climbing Comments Unable at this time. PT-Balance Assessment Sitting Balance and Reactions Static Sitting Balance Ability Poor Dynamic Sitting Balance Ability Poor Standing Balance and Reactions Static Standing Balance Ability Poor Dynamic Standing Balance Ability Poor Device Used FWW M5 PT-IP Objective Assessments Start: 01/05/21 12:47 Freq: NEEDED Status: Active Protocol: Document 01/05/21 11:01 AB (Rec: 01/05/21 13:07 AB [id number]) Orientation Orientation/Cognition Level of Alertness Alert Orientation Name,Age,Birthday,Month,Date, Year,Day of Week,Place, Situation Language Function Ability No Deficits Noted Safety Awareness Understands Safety Issues Memory Description No Deficits Noted Gross Range of Motion Lower Extremity ROM Assessment Within Functional Limits Strength Lower Extremity Strength Assessment Bilaterally Impaired Hip 3+/5 Coordination Assessment Gross Coordination Gross Coordination WNL Sensation Assessment Sensation Gross Sensation WNL Muscle Tone Muscle Tone WNL Yes M6 PT-IP Treatment Start: 01/05/21 12:47 Freq: NEEDED Status: Active Protocol: Document 01/06/21 16:11 SP (Rec: 01/06/21 13:22 SP [id number]) Physical Therapy Treatment Education Education Provided Precautions,Weight Bearing Status,Safety M7 PT-IP Assessment and Plan Start: 01/05/21 12:47 Freq: NEEDED Status: Active Protocol: Document 01/06/21 16:11 SP (Rec: 01/06/21 13:22 SP [id number]) PT Summary Assessment and Plan Potential Rehabilitation Potential Good Status of Condition at Evaluation Stable Summary Impairments Pain,ROM,Strength,Balance, Coordination,Sensation,Tone, Cognition,Bed Mobility, Transfers,Gait,Activity Tolerance Progress Towards Goals Slow Progress due to Pain,Slow Progress due to Activity Tolerance Assessment Summary Pt required significant increase in physical assist this am tx, max A x2-3 persons during all mobility and use of fWW. Nurse reported pt maybe lethargic due to medication. At this time recommending skilled rehab. Will continue to assess progress this pm. Goals Bed Mobility Goal Independent Transfer Goal Standby Assistance Gait Goal Standby Assistance Gait Distance 150 Other Goals up/down 16 steps L rail ascending SBA Days to Meet Goals 5 Frequency of Treatment Frequency Of Treatment Twice a Day Treatment Plan Physical Therapy Treatment Plan Bed Mobility Training,Transfer Training,Gait Training, Therapeutic Exercise,Balance Retraining,Post Op Education, Discharge Planning,Hot or Cold Pack,Neuromuscular Re-ed, Coordination Retraining,Manual Therapy Other Recommendations and Next Treatment Bed mobility, transfers, gait Focus using fWW, stair mgt if able, caregiver training when appropriate. Precautions Lumbar Precautions Log Roll,No Twisting,Limit Bending,Lifting Restriction of 10 lbs,Gait Belt above Incisional Area Recommendations To Nursing Amount of Assist Needed 2 Person Assist,3 or More Person Assist Discharge Recommendations PT Discharge Recommendations Home vs SNF Transportation Needs at Discharge Private Vehicle,Wheelchair/ Cabulance
--- NOTE | 2021-01-06 13:37 | OT.IPNOTE ---
Attempted to see pt for OT treatment and pt states does not feel well, in too much pain , and wanting to be seen tomorrow. To attempt to see pt tomorrow for shower if appropriate.
[2021-01-06] MEDS: OXYCODONE IR 5 MG TABLET 15 MG PO ×3 (14:59→23:13)
[2021-01-06 15:35] VITALS: BP 136/69; PULSE 85; RESP 18; TEMP 37.3; O2SAT 93
--- NOTE | 2021-01-06 15:55 | CM.DPC ---
DCP Cont: Met with patient, as it is noted that he is a max assist with transfers. He did work with P.T. Brought him a Medicare Choice List for him to review. Stated, he really didn't want to go to a facility if he doesn't have to. Having Deena at [facility] review. P: DCP to continue to follow. Patient could be ready for discharge, home is initial plan, but may need long term rehab. Deena at [facility] has referral. Charis Le RN/Weston Richardson
--- NOTE | 2021-01-06 16:35 | PT.IPTN ---
Addendum entered and electronically signed by Deloris Guillaume PTA 01/06/21 17:18: Pt's wants to attend 01/07/21 am tx, call her to let her know. Original Note: Current Diagnoses Obstructive sleep apnea (adult) (pediatric) (01/04/21) Spondylolisthesis, lumbar region (01/04/21) Spinal stenosis, lumbar region with neurogenic claudication (01/04/21) Dependence on other enabling machines and devices (01/04/21) Surgery Performed Operation Date: 01/04/21 13:15 Actual Procedures p L3-4 left hemilaminectomy, L4-5 TLIF w. posterior instrumentation - Andie Crooks MD Physical Therapy Treatment Note M2 PT-IP Current Condition Start: 01/05/21 12:47 Freq: NEEDED Status: Active Protocol: Document 01/05/21 11:01 AB (Rec: 01/05/21 13:07 AB [id number]) Physical Therapy Current Condition Current Condition Evaluation Date 01/05/21 Treatment Diagnosis s/p L4-5 fusion/cage/lami; L3- 4 R hemilami; difficulty in walking Onset Date 01/04/21 Precautions Lumbar Precautions Log Roll,No Twisting,Limit Bending,Lifting Restriction of 10 lbs,Gait Belt above Incisional Area M3 PT-IP Subjective Start: 01/05/21 12:47 Freq: NEEDED Status: Active Protocol: Document 01/06/21 16:10 SP (Rec: 01/06/21 17:05 SP [id number]) Subjective Physical Therapy Visit Type Type Treatment Note Visit Start Time 16:10 Visit Stop Time 16:35 Total Visit Minutes 25 Notes CARRIER OPERATOR provided physical assist with mobility. Number of COMBER SETTER Visits 2 Physical Therapy Visit Comments Patient Comments Pt willing to work with therapy on 2nd attempt for pm tx, unable to keep eyes open 1st attempt. Pt has a hard time staying awake, premedicated prior to tx. Patient Goals Return home with to assist him. Therapy Pain Assessment Pain When Pain Assessed During Mobility Pain Present Pain Present Pain Reported Location back Scale Used not quantified Description With Movement Pain Behaviors Facial Grimacing,Holding Area, Moaning Pain Management Techniques Modification of Treatment,Re- positioning,Timing of Activity with Medications M4 PT-IP Mobility and Gait Start: 01/05/21 12:47 Freq: NEEDED Status: Active Protocol: Document 01/06/21 16:10 SP (Rec: 01/06/21 17:05 SP [id number]) PT-Bed Mobility Assessment Rolling Type of Rolling Log Rolling,Bilateral Level of Assist Maximal Assistance,1 Person Assistance Supine to Sit Supine to Sit Maximum Assistance,1 Person Assistance,Head of Bed Elevated,Bedrails Scooting Scooting to Edge of Bed Maximum Assistance PT-Transfer Assessment Sit to and From Stand Sit to and from Stand Minimal Assistance,Maximum Assistance,2 Person Assistance ,Use of Upper Extremities Equipment Transfer Assistive Device Gait Belt,Front Wheeled Walker Orthotic/Prosthetic Devices or Brace: No Transfers Transfer Destination Chair Transfer Technique Stand Step Pivot Transfer Ability Level of Assist Contact Guard Assistance, Moderate Assistance,2 Person Assistance,Use of Upper Extremities Comments Mobility Comments Pt's eyes were open when returned 2nd attempt. Max A x1 for LR L using bed rail, L SL >sit heavy Max A x1 support for LE repositioning to EOB and at upper trunk for righting to sitting. Max A x1 for scooting to EOB and support with cuing for forward trunk posture BUE WB on bed self progression. Sit>stand Max A x1 , Min A 2nd person, SPT using fWW to chair with max cuing for sequencing each step and support for fWW repositioning and assist for wt shifting over stance LE to allow opposite foot clearance. [place] cuing for reaching back and Mod A for slow descent into chair. Max A for each LE scoot back in chair with BUE self WB on chair arms. COMBER SETTER assisted pt reclined in chair with chair alarm donned, call light and all needs in reach pt immediately fell asleep. Pt continues to demonstrate being extremely tired this tx with mobility, at times difficulty expressing thoughts . COMBER SETTER expressed increase physical assist needed during tx with evening nurse, nurse reported assesssing medication balance for pain and allow activity tolerance but maybe it was to much. Gait Assessment Gait Gait Assistance Required: Contact Guard Assist,Moderate Assistance,2 Person Assist Distance (Feet) 3 Able to Maintain Weight Bearing Status Yes During Gait Assistive Devices Assistive Device Gait Belt,Front Wheeled Walker Orthotic/Prosthetic Devices or Brace: No Gait Deviations General Gait Pattern Ataxic,Decreased Stride Length ,Decreased Feet Clearance, Flexed Trunk,Lateral Trunk Lean,Step-to Gait,Wide Based Gait Factors Limiting Gait Function Factors Limiting Gait Function Decreased Activity Tolerance, Decreased Strength,Difficulty Following Directions,Limited Range of Motion,Pain,Poor Balance,Poor Safety Awareness Comments Gait Comments SPT bed>chair using FWW, see mobility comments. Stair Climbing Assessment Comments Stair Climbing Comments Unable at this time. PT-Balance Assessment Sitting Balance and Reactions Static Sitting Balance Ability Poor Dynamic Sitting Balance Ability Poor Standing Balance and Reactions Static Standing Balance Ability Poor Dynamic Standing Balance Ability Poor Device Used FWW M5 PT-IP Objective Assessments Start: 01/05/21 12:47 Freq: NEEDED Status: Active Protocol: Document 01/05/21 11:01 AB (Rec: 01/05/21 13:07 AB [id number]) Orientation Orientation/Cognition Level of Alertness Alert Orientation Name,Age,Birthday,Month,Date, Year,Day of Week,Place, Situation Language Function Ability No Deficits Noted Safety Awareness Understands Safety Issues Memory Description No Deficits Noted Gross Range of Motion Lower Extremity ROM Assessment Within Functional Limits Strength Lower Extremity Strength Assessment Bilaterally Impaired Hip 3+/5 Coordination Assessment Gross Coordination Gross Coordination WNL Sensation Assessment Sensation Gross Sensation WNL Muscle Tone Muscle Tone WNL Yes M6 PT-IP Treatment Start: 01/05/21 12:47 Freq: NEEDED Status: Active Protocol: Document 01/06/21 16:10 SP (Rec: 01/06/21 17:05 SP [id number]) Physical Therapy Treatment Exercises Exercises Ankle Pumps,Heel Slides Knee ROM Measurement 50 deg w/ Mod A Education Education Provided Precautions,Weight Bearing Status,Safety Other Treatments Other Treatment Performed Pt comments that can't feel toes move as much, demonstrates good movement toe flexion/ extension. M7 PT-IP Assessment and Plan Start: 01/05/21 12:47 Freq: NEEDED Status: Active Protocol: Document 01/06/21 16:10 SP (Rec: 01/06/21 17:05 SP [id number]) PT Summary Assessment and Plan Potential Rehabilitation Potential Good Status of Condition at Evaluation Stable Summary Impairments Pain,ROM,Strength,Balance, Coordination,Sensation,Tone, Cognition,Bed Mobility, Transfers,Gait,Activity Tolerance Progress Towards Goals Slow Progress due to Pain,Slow Progress due to Activity Tolerance Assessment Summary Pt required Max x1 bed mobility, Max/ Mod x2 persons sit<>stand, Mod/CGA x2 persons during transfers using fWW bed>chair. Pt would benefit from skilled therapy SNF to improve strength and functional mobility at this time. Will continue to assess progress. Goals Bed Mobility Goal Independent Transfer Goal Standby Assistance Gait Goal Standby Assistance Gait Distance 150 Other Goals up/down 16 steps L rail ascending SBA Days to Meet Goals 5 Frequency of Treatment Frequency Of Treatment Twice a Day Treatment Plan Physical Therapy Treatment Plan Bed Mobility Training,Transfer Training,Gait Training, Therapeutic Exercise,Balance Retraining,Post Op Education, Discharge Planning,Hot or Cold Pack,Neuromuscular Re-ed, Coordination Retraining,Manual Therapy Other Recommendations and Next Treatment Bed mobility, transfers, gait Focus using fWW, stairs with safe and able. Precautions Lumbar Precautions Log Roll,No Twisting,Limit Bending,Lifting Restriction of 10 lbs,Gait Belt above Incisional Area Recommendations To Nursing Amount of Assist Needed 2 Person Assist Discharge Recommendations PT Discharge Recommendations SNF Rehab Transportation Needs at Discharge Private Vehicle,Wheelchair/ Cabulance
[2021-01-06] MEDS: diazePAM 2 MG TABLET PO (20:04)
[2021-01-06 20:24] VITALS: BP 149/75; PULSE 73; RESP 22; TEMP 37.5; O2SAT 95
[2021-01-06] MEDS: SENNOSIDES 8.6 MG TABLET 17.2 MG PO (21:18)
[2021-01-06 23:43] VITALS: BP 154/76; PULSE 94; RESP 18; TEMP 37.7; O2SAT 94
[2021-01-07] VITALS (7 sets, daily range): BP systolic 121–137; BP diastolic 70–94; PULSE 81–105; RESP 16–18; TEMP 36.4–37.4; O2SAT 93–96
[2021-01-07] MEDS: OXYCODONE IR 5 MG TABLET 15 MG PO ×5 (02:32→19:12)
[2021-01-07] MEDS: ACETAMINOPHEN 325 MG TABLET 650 MG PO (05:12)
[2021-01-07] MEDS: lisinopriL 5 MG TABLET 10 MG PO (09:47)
[2021-01-07] MEDS: ROSUVASTATIN 10 MG TABLET 2.5 MG PO (09:48)
[2021-01-07] MEDS: DOCUSATE 100 MG CAPSULE PO ×2 (09:48→19:11)
--- NOTE | 2021-01-07 10:37 | PT.IPTN ---
Current Diagnoses Obstructive sleep apnea (adult) (pediatric) (01/04/21) Spondylolisthesis, lumbar region (01/04/21) Spinal stenosis, lumbar region with neurogenic claudication (01/04/21) Dependence on other enabling machines and devices (01/04/21) Surgery Performed Operation Date: 01/04/21 13:15 Actual Procedures p L3-4 left hemilaminectomy, L4-5 TLIF w. posterior instrumentation - Andie Crooks MD Physical Therapy Treatment Note M2 PT-IP Current Condition Start: 01/05/21 12:47 Freq: NEEDED Status: Active Protocol: Document 01/05/21 11:01 AB (Rec: 01/05/21 13:07 AB [id number]) Physical Therapy Current Condition Current Condition Evaluation Date 01/05/21 Treatment Diagnosis s/p L4-5 fusion/cage/lami; L3- 4 R hemilami; difficulty in walking Onset Date 01/04/21 Precautions Lumbar Precautions Log Roll,No Twisting,Limit Bending,Lifting Restriction of 10 lbs,Gait Belt above Incisional Area M3 PT-IP Subjective Start: 01/05/21 12:47 Freq: NEEDED Status: Active Protocol: Document 01/07/21 10:22 CLB (Rec: 01/07/21 12:54 CLB [id number]) Subjective Physical Therapy Visit Type Type Treatment Note Visit Start Time 10:22 Visit Stop Time 10:37 Total Visit Minutes 15 Number of FOOD SERVICE COUNTER CLERK Visits 3 Physical Therapy Visit Comments Patient Comments Pt reports no pain while laying in bed upon arrival willing to work with therapy. Therapy Pain Assessment Pain When Pain Assessed During Mobility Pain Present Pain Present Pain Reported Location back Intensity 10 Description With Movement Pain Behaviors Facial Grimacing,Holding Area, Moaning Pain Management Techniques Modification of Treatment,Re- positioning,Timing of Activity with Medications M4 PT-IP Mobility and Gait Start: 01/05/21 12:47 Freq: NEEDED Status: Active Protocol: Document 01/07/21 10:22 CLB (Rec: 01/07/21 12:54 CLB [id number]) PT-Bed Mobility Assessment Rolling Type of Rolling Log Rolling,Bilateral Level of Assist Maximal Assistance,2 Person Assistance PT-Transfer Assessment Comments Mobility Comments Pt willing to get up but with movement of LE's pain increased to 10/10 with shaking, pt requested to have pain meds before attempting to get OOB and asked to bed repositioned in bed. RN called and RN assist Max Ax2 to bring pt to HOB and to assist with LR for position change. Pt left in bed with alarm on and all needs within reach. Gait Assessment Comments Gait Comments unable Stair Climbing Assessment Comments Stair Climbing Comments Unable at this time. PT-Balance Assessment Sitting Balance and Reactions Static Sitting Balance Ability Poor Dynamic Sitting Balance Ability Poor Standing Balance and Reactions Static Standing Balance Ability Poor Dynamic Standing Balance Ability Poor Device Used FWW M5 PT-IP Objective Assessments Start: 01/05/21 12:47 Freq: NEEDED Status: Active Protocol: Document 01/05/21 11:01 AB (Rec: 01/05/21 13:07 AB [id number]) Orientation Orientation/Cognition Level of Alertness Alert Orientation Name,Age,Birthday,Month,Date, Year,Day of Week,Place, Situation Language Function Ability No Deficits Noted Safety Awareness Understands Safety Issues Memory Description No Deficits Noted Gross Range of Motion Lower Extremity ROM Assessment Within Functional Limits Strength Lower Extremity Strength Assessment Bilaterally Impaired Hip 3+/5 Coordination Assessment Gross Coordination Gross Coordination WNL Sensation Assessment Sensation Gross Sensation WNL Muscle Tone Muscle Tone WNL Yes M6 PT-IP Treatment Start: 01/05/21 12:47 Freq: NEEDED Status: Active Protocol: Document 01/06/21 16:11 SP (Rec: 01/06/21 13:22 SP [id number]) Physical Therapy Treatment Education Education Provided Precautions,Weight Bearing Status,Safety M7 PT-IP Assessment and Plan Start: 01/05/21 12:47 Freq: NEEDED Status: Active Protocol: Document 01/07/21 10:22 CLB (Rec: 01/07/21 12:54 CLB [id number]) PT Summary Assessment and Plan Potential Rehabilitation Potential Good Status of Condition at Evaluation Stable Summary Impairments Pain,ROM,Strength,Balance, Coordination,Sensation,Tone, Cognition,Bed Mobility, Transfers,Gait,Activity Tolerance Progress Towards Goals Slow Progress due to Pain,Slow Progress due to Activity Tolerance Assessment Summary Pt unable to get up after attempt to get to EOB. Pt with pain of 10/10. Pt required Max A x2 for bed mobility for position change and moving to HOB. Pt will require SNF rehab to increase activity tolerance before returning home. Goals Bed Mobility Goal Independent Transfer Goal Standby Assistance Gait Goal Standby Assistance Gait Distance 150 Other Goals up/down 16 steps L rail ascending SBA Days to Meet Goals 5 Frequency of Treatment Frequency Of Treatment Twice a Day Treatment Plan Physical Therapy Treatment Plan Bed Mobility Training,Transfer Training,Gait Training, Therapeutic Exercise,Balance Retraining,Post Op Education, Discharge Planning,Hot or Cold Pack,Neuromuscular Re-ed, Coordination Retraining,Manual Therapy Other Recommendations and Next Treatment Bed mobility, transfers, gait Focus using fWW, stair mgt if able, caregiver training when appropriate. Precautions Lumbar Precautions Log Roll,No Twisting,Limit Bending,Lifting Restriction of 10 lbs,Gait Belt above Incisional Area Recommendations To Nursing Amount of Assist Needed 2 Person Assist,3 or More Person Assist Discharge Recommendations PT Discharge Recommendations SNF Rehab Transportation Needs at Discharge Wheelchair/Cabulance
--- NOTE | 2021-01-07 11:09 | CM.DPC ---
DCP Cont: Discussed discharge planning with patient briefly. Patient was sleepy. Let him know that [facility] can accept patient today. Patient reluctant to go to skilled nursing, TEVIN Fair, also in room and emphasized that it is for temporary rehab before going home. Left Erlin Rosario, PAC in ortho a message that [facility] can accept, versus going home today. has not yet been in. P: DCP to continue to follow, and will see if patient can be discharged today. Charis Le RN/Model Engine Mechanic
--- NOTE | 2021-01-07 11:54 | PM.PNPO.1 ---
Subjective Subjective Date Patient Seen: 01/07/21 Time Patient Seen: 11:54 Interval history: Patient states he is in a moderate amount of discomfort. Patient reports good sensation throughout the bilateral lower extremities to light touch. At this time patient denies fever, chills, nausea, urinary retention, shortness of breath, or chest pain. Exam Vital Signs (past 8 hours): - 01/07/21 08:00 01/07/21 09:47 Temperature 98 F Pulse Rate 83 83 Respiratory Rate 16 Blood Pressure 121/81 121/81 Pulse Oximetry 94 Oxygen Delivery Method Room Air,CPAP Oxygen Flow Rate 0 Narrative Exam Narrative: 75-year-old male postop day 3. Patient is resting in bed, is alert and oriented x3, and is in no acute distress. Skin is warm and dry, and the skin surrounding the incision is free of erythema, warmth, induration, or discharge. Good sensation throughout the bilateral lower extremities to light touch. Calves are soft and nontender, negative Homans sign. Ankle inversion, eversion, dorsiflexion, plantar flexion are performed bilaterally without difficulty or discomfort. Hip flexion performed bilaterally without difficulty or discomfort. Capillary refill less than 2 seconds. No other signs of DVT appreciated. Const General: cooperative and healthy appearing Resp Effort & Inspection: normal respiratory effort and able to speak in complete sentences Skin General: no rashes or lesions noted PFSH Medical History Arthritis Asthma Atrial fibrillation CAD (coronary artery disease) Difficult airway Difficult intravenous access HLD (hyperlipidemia) HTN (hypertension) Leg edema Lower back pain KORTNEY on CPAP Prostate cancer (~2006) Sciatica Surgical History History of arthroplasty of right knee (~2015) History of arthroscopy of left shoulder History of bilateral carpal tunnel release History of surgery (01/2020) Hx of arthroscopy of left knee Hx of heart artery stent (10/2014) Hx of knee surgery Hx of prostatectomy Hx of tonsillectomy Social History household members: spouse Smoking Status: Never smoker alcohol intake: never Assessment & Plan Post-op Postoperative Procedures: Procedures Operation Date: 01/04/21 13:15 Actual Procedures Side Surgeon p L3-4 left hemilaminectomy, L4-5 TLIF w. posterior instrumentation Andie Crooks MD Postoperative day: 3 Postoperative plan narrative: Patient is to continue working on ambulation with physical therapy. Patient is to continue current pain control regimen. Decadron 4 mg IV q.6 been ordered to help alleviate additional pain. Time Spent With Patient Time with patient: 15-24 minutes
[2021-01-07] MEDS: DEXAMETHASONE 4 MG/ML VIAL IV ×2 (12:11→17:44)
[2021-01-07] MEDS: diazePAM 2 MG TABLET PO (12:50)
[2021-01-07] MEDS: HYDROMORPHONE 0.5 MG INJ IV (13:28)
--- NOTE | 2021-01-07 14:06 | PT.IPTN ---
Current Diagnoses Obstructive sleep apnea (adult) (pediatric) (01/04/21) Spondylolisthesis, lumbar region (01/04/21) Spinal stenosis, lumbar region with neurogenic claudication (01/04/21) Dependence on other enabling machines and devices (01/04/21) Surgery Performed Operation Date: 01/04/21 13:15 Actual Procedures p L3-4 left hemilaminectomy, L4-5 TLIF w. posterior instrumentation - Andie Crooks MD Physical Therapy Treatment Note M2 PT-IP Current Condition Start: 01/05/21 12:47 Freq: NEEDED Status: Active Protocol: Document 01/05/21 11:01 AB (Rec: 01/05/21 13:07 AB [id number]) Physical Therapy Current Condition Current Condition Evaluation Date 01/05/21 Treatment Diagnosis s/p L4-5 fusion/cage/lami; L3- 4 R hemilami; difficulty in walking Onset Date 01/04/21 Precautions Lumbar Precautions Log Roll,No Twisting,Limit Bending,Lifting Restriction of 10 lbs,Gait Belt above Incisional Area M3 PT-IP Subjective Start: 01/05/21 12:47 Freq: NEEDED Status: Active Protocol: Document 01/07/21 13:39 CLB (Rec: 01/07/21 15:47 CLB [id number]) Subjective Physical Therapy Visit Type Type Treatment Note Visit Start Time 13:39 Visit Stop Time 14:06 Total Visit Minutes 25 Notes Co-treat with OT Number of HOSPICE COORDINATOR Visits 3 Physical Therapy Visit Comments Patient Comments Pt willing to transfer to chair. Therapy Pain Assessment Pain When Pain Assessed During Mobility Pain Present Pain Present Pain Reported Location back Scale Used did not state Description With Movement Pain Behaviors Facial Grimacing,Wincing Pain Management Techniques Modification of Treatment,Re- positioning,Timing of Activity with Medications M4 PT-IP Mobility and Gait Start: 01/05/21 12:47 Freq: NEEDED Status: Active Protocol: Document 01/07/21 13:39 CLB (Rec: 01/07/21 15:47 CLB [id number]) PT-Bed Mobility Assessment Rolling Type of Rolling Log Rolling Level of Assist Maximal Assistance,2 Person Assistance Supine to Sit Supine to Sit Total Assistance,2 Person Assistance,Bedrails Scooting Scooting to Edge of Bed Maximum Assistance PT-Transfer Assessment Sit to and From Stand Sit to and from Stand Maximum Assistance,2 Person Assistance,Use of Upper Extremities Equipment Transfer Assistive Device Gait Belt,Front Wheeled Walker Orthotic/Prosthetic Devices or Brace: No Transfers Transfer Destination Chair Transfer Technique Stand Step Pivot Transfer Ability Level of Assist Maximum Assistance,2 Person Assistance,Use of Upper Extremities Comments Mobility Comments Pt requiring Max A x2 for LR and Total A x2 for sidelying to sit, pt then required Max A to scoot to EOB with use of draw sheet. Pt has difficulty following directions and requiring cues to keep eyes open. Pt able to take small stand pivot steps to chair with help managing walker and third person standing in front of walker for safety. Pt sat with Max A and cues to slow descent. Pt left in chair sitting upright with table in front of pt, call light within reach. Stair Climbing Assessment Comments Stair Climbing Comments Unable at this time. PT-Balance Assessment Sitting Balance and Reactions Static Sitting Balance Ability Poor Dynamic Sitting Balance Ability Poor Standing Balance and Reactions Static Standing Balance Ability Poor Dynamic Standing Balance Ability Poor Device Used FWW M5 PT-IP Objective Assessments Start: 01/05/21 12:47 Freq: NEEDED Status: Active Protocol: Document 01/05/21 11:01 AB (Rec: 01/05/21 13:07 AB [id number]) Orientation Orientation/Cognition Level of Alertness Alert Orientation Name,Age,Birthday,Month,Date, Year,Day of Week,Place, Situation Language Function Ability No Deficits Noted Safety Awareness Understands Safety Issues Memory Description No Deficits Noted Gross Range of Motion Lower Extremity ROM Assessment Within Functional Limits Strength Lower Extremity Strength Assessment Bilaterally Impaired Hip 3+/5 Coordination Assessment Gross Coordination Gross Coordination WNL Sensation Assessment Sensation Gross Sensation WNL Muscle Tone Muscle Tone WNL Yes M6 PT-IP Treatment Start: 01/05/21 12:47 Freq: NEEDED Status: Active Protocol: Document 01/06/21 16:11 SP (Rec: 01/06/21 13:22 SP [id number]) Physical Therapy Treatment Education Education Provided Precautions,Weight Bearing Status,Safety M7 PT-IP Assessment and Plan Start: 01/05/21 12:47 Freq: NEEDED Status: Active Protocol: Document 01/07/21 13:39 CLB (Rec: 01/07/21 15:47 CLB [id number]) PT Summary Assessment and Plan Potential Rehabilitation Potential Good Status of Condition at Evaluation Stable Summary Impairments Pain,ROM,Strength,Balance, Coordination,Sensation,Tone, Cognition,Bed Mobility, Transfers,Gait,Activity Tolerance Progress Towards Goals Slow Progress due to Pain,Slow Progress due to Activity Tolerance Assessment Summary Pt requiring Max A x2-Total A for all mobility. Pt able to transfer to chair with Max A x2-3 persons for safety with cues sequencing transfer and assist with walker management. Pt will benefit from SNF rehab to increase strength for improved activity tolerance and strength for independent mobility. Goals Bed Mobility Goal Independent Transfer Goal Standby Assistance Gait Goal Standby Assistance Gait Distance 150 Other Goals up/down 16 steps L rail ascending SBA Days to Meet Goals 5 Frequency of Treatment Frequency Of Treatment Twice a Day Treatment Plan Physical Therapy Treatment Plan Bed Mobility Training,Transfer Training,Gait Training, Therapeutic Exercise,Balance Retraining,Post Op Education, Discharge Planning,Hot or Cold Pack,Neuromuscular Re-ed, Coordination Retraining,Manual Therapy Other Recommendations and Next Treatment Bed mobility, transfers, gait Focus using fWW, stair mgt if able, caregiver training when appropriate. Precautions Lumbar Precautions Log Roll,No Twisting,Limit Bending,Lifting Restriction of 10 lbs,Gait Belt above Incisional Area Recommendations To Nursing Amount of Assist Needed 2 Person Assist,3 or More Person Assist Discharge Recommendations PT Discharge Recommendations SNF Rehab Transportation Needs at Discharge Wheelchair/Cabulance
--- NOTE | 2021-01-07 14:06 | OT.IP.TRT ---
Current Diagnoses Obstructive sleep apnea (adult) (pediatric) (01/04/21) Spondylolisthesis, lumbar region (01/04/21) Spinal stenosis, lumbar region with neurogenic claudication (01/04/21) Dependence on other enabling machines and devices (01/04/21) Surgery Performed Operation Date: 01/04/21 13:15 Actual Procedures p L3-4 left hemilaminectomy, L4-5 TLIF w. posterior instrumentation - Andie Crooks MD Occupational Therapy Treatment Note M2 OT-IP Current Condition Start: 01/05/21 11:21 Freq: Status: Active Protocol: Document 01/05/21 11:21 [facility] (Rec: 01/05/21 11:46 [facility] [id number]) Occupational Therapy Current Condition Current Condition Evaluation Date 01/05/21 Treatment Diagnosis s/p L3-4, Left Hemilaminectomy , L4-5 YLIF, decreased mobility Diagnosis Onset Date 01/04/21 Post Operative Precautions Lumbar Precautions Log Roll,No Twisting,Limit Bending,Lifting Restriction of 10 lbs,Gait Belt above Incisional Area M3 OT- IP Subjective and Pain Start: 01/05/21 11:21 Freq: Status: Active Protocol: Document 01/07/21 14:09 [facility] (Rec: 01/07/21 14:18 [facility] [id number]) OT- Subjective Occupational Therapy Visit Type Type Treatment Note Visit Start Time 13:38 Visit Stop Time 14:06 Total Visit Minutes 28 Occupational Therapy Visit Comments Patient Comments Able to time pain medications with nursing, pt agreed to get up. Patient/Caregiver Goals Pt insistent that he wants to go home. OT Pain Assessment Pain When Pain Assessed At Rest Pain Present Pain Present Denied Pain M4 OT- IP ADL's Start: 01/05/21 11:21 Freq: Status: Active Protocol: Document 01/07/21 14:09 [facility] (Rec: 01/07/21 14:18 [facility] [id number]) OT [id number] Comments OT Self-Feeding Comments NOt at meal time. OT ADL-Grooming Comments OT Grooming Comments NOt performed. OT ADL-Dressing General Eval Lower Body Dressing Ability Maximum Assistance OT ADL-Toileting General Evaluation Toileting Ability Maximum Assistance Comments OT Toileting Comments DEVIN x 2 to stand with FWW while nurse able to assist to hold urinal in place and assist with hygiene needs. OT ADL-Bathing Comments OT Bathing Comments Not performed. M6 OT- IP Functional Cognition Start: 01/05/21 11:21 Freq: Status: Active Protocol: Document 01/07/21 14:09 [facility] (Rec: 01/07/21 14:18 [facility] [id number]) Cognitive Factors Limiting Selfcare Function Cognitive Ability Level of Alertness Drowsy Patient Orientation Name Attention Span Ability Capable of Focused Attention, Unable to Sustain Attention Ability to Follow Commands Able to Follow One Step Commands with Increased Time, Able to Follow One Step Commands with Repetition Safety Awareness Decreased Recall of Precautions,Decreased Ability to Apply Precautions, Underestimates Need for Assistance Cognitive Comments Cognitive Assessment Comments Pt very drowsy and groggy and having difficulty to stay awake and follow commands and needing hand over hand assist for hand placement and for FWW safety. Pt not able to recall back precautions without looking at the board. Pt not remembering that he was in the hospital. M7 OT- IP Mobility and Balance Start: 01/05/21 11:21 Freq: Status: Active Protocol: Document 01/07/21 14:09 [facility] (Rec: 01/07/21 14:18 [facility] [id number]) OT- Bed Mobility Assessment Rolling Type of Rolling Roll to Left Level of Assistance Maximum Assistance,2 Person Assistance Supine to Sit Supine to Sit Assist Total Assistance,2 Person Assistance Scooting Scooting to Edge of Bed Moderate Assistance,Maximum Assistance,2 Person Assistance OT-Transfer Assessment Sit to and From Stand Sit to and from Stand Maximum Assistance,2 Person Assistance Transfers Transfer Ability Moderate Assistance,2 Person Assistance Technique Transfer Destination Bed,Chair Transfer Technique Stand Step Pivot Devices Transfer Assistive Devices Gait Belt,Front Wheeled Walker Comments Mobility Comments Heavy use of green pad to assist to roll pt MAX AX 2, total assist x2 to help get pt upright. MAX A X2 to stand and assist to help get hand on the FWW , another 3rd person to hold the FWW in place. Transfer assist to guide FWW, balance, and MOD vc for safety MODA X 2, also MOD Ax2 to help lower back down to the recliner. OT- Gait Assessment Comments Gait Ability Comments transfer only at this time. OT- Balance Assessment Sitting Balance and Reactions Static Sitting Balance Ability Fair Dynamic Sitting Balance Ability Poor Standing Balance and Reactions Static Standing Balance Ability Poor M8 OT- IP Objective Assessments Start: 01/05/21 11:21 Freq: Status: Active Protocol: Document 01/05/21 11:21 [facility] (Rec: 01/05/21 11:46 [facility] [id number]) OT Strength Upper Extremity Strength Assessment Within Functional Limits OT-Muscle Tone Assessment Muscle Tone WNL Yes M9 OT- IP Assessment and Plan Start: 01/05/21 11:21 Freq: Status: Active Protocol: Document 01/07/21 14:09 [facility] (Rec: 01/07/21 14:18 [facility] [id number]) OT Summary Assessment and Plan Potential Rehabilitation Potential Good Analytic Complexity at Evaluation Low Summary OT Impairments Pain,Balance,Functional Cognition,Functional Mobility, Dressing,Toileting,Bathing, Toilet Transfers,Shower Transfers,Activity Tolerance Progress Towards Goals Slow Progress due to Pain Assessment Summary Pt now needing two person extensive assist for all mobility needs and 3rd person for transfer. At this time pt requiring too great of assist for his to assist and recommend skilled rehab at this time. Goals Self-Feeding Goal Independent Grooming Goal Independent Dressing Goal Independent Toileting Goal Moderate Assistance Bathing Goal Independent Toilet Transfer Goal Independent Shower Transfer Goal Independent Patient/Caregiver Education Goal Demonstrate Post-Op Precautions,Caregiver Independent Assisting Patient Days to Meet Goals 15 Frequency of Treatment Frequency Of Treatment Once a Day Treatment Plan OT Treatment Plan ADL Training,Functional Cognition Training,Functional Mobility,Patient/Family Education,Discharge Planning Other Treatment Recommendations and Next [place] [facility] [place] Treatment Focus Discharge Recommendations OT Discharge Recommendations SNF Rehab Home Equipment Needs Defer to skilled rehab Transportation Needs at Discharge Wheelchair/Cabulance
[2021-01-07 14:14] LABS: COVID19 - ADMIT (NP swab/PCR) Negative (Negative)
--- NOTE | 2021-01-07 14:50 | PC.NURSE ---
Pt A&Ox2-3. Forgetful at times, asking if he is in [place]. Patient then easily remembers. C/o pain this shift with activity. RN and PT/OT discuss activity with patient who declined getting up earlier this shift. Recieved new orders for 4mg decadron IV q 6 hrs with good effect in conjunction with PRN oxycodone, and diazepam this shift. Prior to activity patient given 0.5mg IV dialuded for activity, able to participate with therapy and sit up in the chair, however wanting to rest and relax after sitting up in the chair. Voiding frequent small voids, clear elicia colored urine. Encourage po fluids and IS use. VSS, afebrile on RA.
--- NOTE | 2021-01-07 16:00 | CM.DPC ---
DCP Cont: Spoke to patient, and he is aware that he needs rehab. He gave permission to call his , Olivia. Spoke to , and she agrees, he needs to go to rehab, she can't take care of him at home when he is a maximum assist of over 2. Asked her if patient has had his COVID vacinnes, as this will determine if he needs to be on isolation. mentioned, he has had them, proof may be in his wallet. Gave her February's phone number, at [facility]. She mentioned that she will call her regarding visitation rules,and she will look for proof of his vaccines at home as well. Left Deena a message, at [facility]. Inquired if she can accept him today if PAC will write discharge order. Let her know that this space planner will be here for a few more minutes awaiting her call. If patient can't go today, he will go tomorrow, and will need updated COVID. P: DCP to continue to follow. Plan is for patient to go to [facility] either today, or tomorrow. Most likely tomorrow. Charis Le RN/Finishing Pan Operator
--- NOTE | 2021-01-07 17:12 | P.DS_ITS ---
History of Present Illness History of Present Illness Date Patient Seen: 01/07/21 Time Patient Seen: 17:12 Chief complaint: Translaminar Interbody Fusion/Laminotomy *OPB* Narrative: Refer to previous HPI. Discharge Providers Provider Date of admission: 01/04/21 11:22 Discharge Date: 01/07/21 Primary care physician: Kareem Sears MD Consults: 01/04/21 21:02 Consult to Occupational Therapy Evaluate & Treat Comment: Physician Instructions: Evaluate and treat Consult to Physical Therapy Evaluate & Treat Comment: Physician Instructions: Evaluate and Treat Discharge provider: Erlin Rosario PA-C Summary Hospital Course Discharge Diagnosis: L4-5 spondylolisthesis L3 through 4, L4 through 5 spinal stenosis with neurogenic claudication L4-5 posterolateral and posterior interbody fusion Hospital Course: Patient was admitted to the hospital following the above-listed procedure for the above-listed diagnoses. Throughout the course of the patient stated the patient has denied fever, chills, nausea, shortness of breath, chest pain, or urinary retention. Patient has convalesced appropriately following the procedure, pain has been managed with current pain control regimen. Patient has worked on ambulating with physical therapy. The dressing has remained over the incision sites and has remained dry and intact. Status at Discharge Cognitive/behavioral status at discharge: oriented Overall status at discharge: patient is not back to baseline Time Spent with Patient Time spent: Less than 30 minutes Exam Vital Signs (past 8 hours): - 01/07/21 09:47 01/07/21 12:30 01/07/21 15:15 Temperature 97.7 F 98.2 F Pulse Rate 83 81 84 Respiratory Rate 17 18 Blood Pressure 121/81 129/76 133/75 Pulse Oximetry 95 93 Oxygen Delivery Method Room Air,CPAP Oxygen Flow Rate 0 Narrative Exam Narrative: 75-year-old male postop day 3 status post L4-5 posterolateral and posterior interbody fusion. Patient is resting comfortably in bed, is in no acute distress, is alert and oriented x3. Skin is warm and dry, and the skin surrounding the incision site is free of erythema, warmth, induration, or discharge. Good sensation appreciated throughout the bilateral lower extremities to light touch. Calves are soft and nontender, negative Homans sign. Ankle inversion, eversion, dorsiflexion, plantar flexion are performed bilaterally without difficulty or discomfort. Capillary refill less than 2 seconds. No other signs of DVT pre she did. Const General: cooperative, healthy appearing and comfortable Resp Effort & Inspection: normal respiratory effort and able to speak in complete sentences Skin General: no rashes or lesions noted Objective Labs Labs: Laboratory Results - last 24 hr 01/07/21 12:25 SARS-CoV-2 (PCR) Negative [facility] Medical History Arthritis Asthma Atrial fibrillation CAD (coronary artery disease) Difficult airway Difficult intravenous access HLD (hyperlipidemia) HTN (hypertension) Leg edema Lower back pain KORTNEY on CPAP Prostate cancer (~2006) Sciatica Surgical History History of arthroplasty of right knee (~2015) History of arthroscopy of left shoulder History of bilateral carpal tunnel release History of surgery (01/2020) Hx of arthroscopy of left knee Hx of heart artery stent (10/2014) Hx of knee surgery Hx of prostatectomy Hx of tonsillectomy Social History household members: spouse Smoking Status: Never smoker alcohol intake: never Discharge Assessment & Plan Assessment and Plan Assessment: Patient is doing well. Plan of Treatment: Patient is to be discharged to [facility]. Patient's pain has increased since the procedure concluded any he has had difficulty controlling his pain symptoms. The patient is to continue working on ambulating without discomfort. Following discharge from the hospital the patient will follow up in clinic for his 1st postoperative visit in 2 weeks. Patient is to continue current pain control regimen. Patient is to contact the clinic with any concern or questions. Discharge Plan Discharge Plan Patient Disposition: SNF Transfer to: [facility] and [facility] Discharge orders & Medications Prescriptions: New acetaminophen 325 mg Tablet 650 mg PO Q6HR PRN (Reason: Pain, Mild (1-3)) Qty: 90 RF: 0 oxycodone 5 mg Tablet 5 mg PO Q3HR PRN (Reason: Pain, Moderate (4-6)) Qty: 60 RF: 0 Continued aspirin 81 mg Tablet,Delayed Release (Dr/Ec) 81 mg PO DAILY RF: 0 lisinopril 5 mg Tablet 10 mg PO DAILY RF: 0 rosuvastatin 5 mg Tablet 2.5 mg PO DAILY RF: 0 Follow up/Referrals: Kareem Sears MD [Primary Care Provider] - Diet/Activity/Treatments Diet: Diet as Tolerated Activity: Avoid bending, twisting, lifting of 10 lb or greater. Skin/Wound/Dressing Care Report to your healthcare provider any signs of infection, such as:: chills, fever, night sweats, increased pain, unusual drainage and unusual redness Dressing: Dressing over incisions is to remain dry and intact. Other wound treatment: Do not place topical ointments, such as triple antibiotic ointment over the incision. Special Rehabilitation Services Reason for rehabilitation: Post-operative therapy Rehab type: Physical therapy Restrictions to mobility: Avoid bending, twisting, lifting 10 lb or heavier. Visit Report/Discharge Packet Instructions: DI for Constipation, How to Prevent Falls, DI for Prescription Opioid Use, DI for Transforaminal Lumbar Interbody Fusion Stand Alone Forms: Surgery Discharge Discharge Data Primary Care Provider: Kareem Sears
[2021-01-07] MEDS: SENNOSIDES 8.6 MG TABLET 17.2 MG PO (19:11)
[2021-01-07] MEDS: SODIUM CHLORIDE 0.9% FLUSH 10 ML IV (20:10)
[2021-01-08] MEDS: DEXAMETHASONE 4 MG/ML VIAL IV ×2 (00:58→05:19)
[2021-01-08] MEDS: OXYCODONE IR 5 MG TABLET 15 MG PO (01:01)
[2021-01-08 03:44] VITALS: BP 150/74; PULSE 93; RESP 16; TEMP 36.4; O2SAT 95
[2021-01-08 08:00] VITALS: BP 124/71; PULSE 69; RESP 16; TEMP 36.5; O2SAT 96
--- NOTE | 2021-01-08 08:44 | CM.DPC ---
Addendum entered by Layla Hamilton LPN 01/08/21 08:52: Pt requests that he be called re the d/c time/done. Addendum entered by Layla Hamilton LPN 01/08/21 08:45: snf specific orders are faxed and placed to snf packet. Pt is updated. RN Keisha is updated and has the nurse/nurse report cell #. IMM #[phone] delivered to pt. Original Note: DCP: continued: case received, EMR reviewed, d/c to [facility] noted. All is now set up for [facility] to pick pt up via w/c van at 1100. PASRR, COVID - test from 01/07 and snf s0
[2021-01-08 09:05] VITALS: BP 124/71; PULSE 69
[2021-01-08] MEDS: ROSUVASTATIN 10 MG TABLET 2.5 MG PO (09:05)
[2021-01-08] MEDS: lisinopriL 5 MG TABLET 10 MG PO (09:05)
[2021-01-08] MEDS: DOCUSATE 100 MG CAPSULE PO (09:06)
[2021-01-08] MEDS: SODIUM CHLORIDE 0.9% FLUSH 10 ML IV (09:06)
[2021-01-08] MEDS: OXYCODONE IR 5 MG TABLET PO (09:14)
[2021-01-08] MEDS: MAGNESIUM HYDROXIDE 30 ML UDC PO (09:16)
--- NOTE | 2021-01-08 11:10 | OT.IP.TRT ---
Current Diagnoses Obstructive sleep apnea (adult) (pediatric) (01/04/21) Spondylolisthesis, lumbar region (01/04/21) Spinal stenosis, lumbar region with neurogenic claudication (01/04/21) Dependence on other enabling machines and devices (01/04/21) Surgery Performed Operation Date: 01/04/21 13:15 Actual Procedures p L3-4 left hemilaminectomy, L4-5 TLIF w. posterior instrumentation - Andie Crooks MD Occupational Therapy Treatment Note M3 OT- IP Subjective and Pain Start: 01/05/21 11:21 Freq: Status: Active Protocol: Document 01/08/21 13:47 [facility] (Rec: 01/08/21 13:53 [facility] [id number]) OT- Subjective Occupational Therapy Visit Type Type Treatment Note Visit Start Time 10:58 Visit Stop Time 11:10 Total Visit Minutes 12 Occupational Therapy Visit Comments Patient Comments Pt wanting to get up to use the bathroom. Patient/Caregiver Goals TO get better. OT Pain Assessment Pain When Pain Assessed At Rest Pain Present Pain Present Denied Pain M4 OT- IP ADL's Start: 01/05/21 11:21 Freq: Status: Active Protocol: Document 01/08/21 13:47 [facility] (Rec: 01/08/21 13:53 [facility] [id number]) OT [id number] Comments OT Self-Feeding Comments NOt at meal time. OT ADL-Toileting General Evaluation Toileting Ability Maximum Assistance Comments OT Toileting Comments Assist to hygiene as unable to reach on his own due to his back precautions. OT ADL-Bathing Comments OT Bathing Comments Not performed. M6 OT- IP Functional Cognition Start: 01/05/21 11:21 Freq: Status: Active Protocol: Document 01/08/21 13:47 [facility] (Rec: 01/08/21 13:53 [facility] [id number]) Cognitive Factors Limiting Selfcare Function Cognitive Ability Level of Alertness Alert Attention Span Ability Capable of Focused Attention, Unable to Sustain Attention Ability to Follow Commands Able to Follow One Step Commands Safety Awareness Underestimates Need for Assistance Cognitive Comments Cognitive Assessment Comments Pt much clearer today and mainly needing reminders to push up from the armrest of the recliner when coming to stand. M7 OT- IP Mobility and Balance Start: 01/05/21 11:21 Freq: Status: Active Protocol: Document 01/08/21 13:47 [facility] (Rec: 01/08/21 13:53 [facility] [id number]) OT-Transfer Assessment Sit to and From Stand Sit to and from Stand Contact Guard Assistance,2 Person Assistance Transfers Transfer Ability Minimal Assistance,2 Person Assistance Technique Transfer Destination Chair,Toilet Transfer Technique Stand Step Pivot Devices Transfer Assistive Devices Gait Belt,Front Wheeled Walker Comments Mobility Comments Much improved today with mobility needs and still needing heavy use of his hands on the FWW for mobility. OT- Gait Assessment Comments Gait Ability Comments DEVIN with FWW in the room. OT- Balance Assessment Sitting Balance and Reactions Static Sitting Balance Ability Good Dynamic Sitting Balance Ability Fair Standing Balance and Reactions Static Standing Balance Ability Fair M9 OT- IP Assessment and Plan Start: 01/05/21 11:21 Freq: Status: Active Protocol: Document 01/08/21 13:47 [facility] (Rec: 01/08/21 13:53 [facility] [id number]) OT Summary Assessment and Plan Potential Rehabilitation Potential Good Analytic Complexity at Evaluation Low Summary OT Impairments Pain,Balance,Functional Cognition,Functional Mobility, Dressing,Toileting,Bathing, Toilet Transfers,Shower Transfers,Activity Tolerance Progress Towards Goals Progressing Toward Goals Assessment Summary Pt moving much better today and having less pain, Pt going to skilled rehab today. Discharge Recommendations OT Discharge Recommendations SNF Rehab Home Equipment Needs Defer to skilled rehab
--- NOTE | 2021-01-08 11:14 | PT.IPTN ---
Current Diagnoses Obstructive sleep apnea (adult) (pediatric) (01/04/21) Spondylolisthesis, lumbar region (01/04/21) Spinal stenosis, lumbar region with neurogenic claudication (01/04/21) Dependence on other enabling machines and devices (01/04/21) Surgery Performed Operation Date: 01/04/21 13:15 Actual Procedures p L3-4 left hemilaminectomy, L4-5 TLIF w. posterior instrumentation - Andie Crooks MD Physical Therapy Treatment Note M2 PT-IP Current Condition Start: 01/05/21 12:47 Freq: NEEDED Status: Active Protocol: Document 01/05/21 11:01 AB (Rec: 01/05/21 13:07 AB [id number]) Physical Therapy Current Condition Current Condition Evaluation Date 01/05/21 Treatment Diagnosis s/p L4-5 fusion/cage/lami; L3- 4 R hemilami; difficulty in walking Onset Date 01/04/21 Precautions Lumbar Precautions Log Roll,No Twisting,Limit Bending,Lifting Restriction of 10 lbs,Gait Belt above Incisional Area M3 PT-IP Subjective Start: 01/05/21 12:47 Freq: NEEDED Status: Active Protocol: Document 01/08/21 10:58 [facility] (Rec: 01/08/21 11:23 [facility] [id number]) Subjective Physical Therapy Visit Type Type Treatment Note Visit Start Time 10:58 Visit Stop Time 11:14 Total Visit Minutes 16 Notes OT in room assisted pt with toileting. Number of [employer] Visits 5 Physical Therapy Visit Comments Patient Comments Pt willing to ambulate Therapy Pain Assessment Pain When Pain Assessed During Mobility Pain Present Pain Present Pain Reported Location back Scale Used did not state M4 PT-IP Mobility and Gait Start: 01/05/21 12:47 Freq: NEEDED Status: Active Protocol: Document 01/08/21 10:58 [facility] (Rec: 01/08/21 11:23 [facility] [id number]) PT-Transfer Assessment Sit to and From Stand Sit to and from Stand Contact Guard Assistance,2 Person Assistance,Use of Upper Extremities Equipment Transfer Assistive Device Gait Belt,Front Wheeled Walker Orthotic/Prosthetic Devices or Brace: No Transfers Transfer Destination Chair,Toilet Transfer Technique Stand Step Pivot Transfer Ability Level of Assist Contact Guard Assistance,1 Person Assistance,Use of Upper Extremities Comments Mobility Comments Pt able to stand from chair CGA. Pt ambulated in room using step to gait pattern and cues for proper hand position on walker handles. Pt required cues for proper positioning in front of toilet before sitting for safety. Pt then ambulated to sink with cues to push walker to counter and walk inside walker for safety in standing. Pt then ambulated to chair sitting CGA . Left pt in chair with RN present. Gait Assessment Gait Gait Assistance Required: Contact Guard Assist,1 Person Assist Distance (Feet) 25 Able to Maintain Weight Bearing Status Yes During Gait Assistive Devices Assistive Device Gait Belt,Front Wheeled Walker Orthotic/Prosthetic Devices or Brace: No Gait Deviations General Gait Pattern Antalgic,Decreased Stride Length,Decreased Feet Clearance,Flexed Trunk,Lateral Trunk Lean,Step-to Gait,Wide Based Gait Factors Limiting Gait Function Factors Limiting Gait Function Decreased Activity Tolerance, Decreased Strength,Difficulty Following Directions,Limited Range of Motion,Pain,Poor Balance,Poor Safety Awareness Comments Gait Comments see mobility comments. Stair Climbing Assessment Comments Stair Climbing Comments Unable at this time. PT-Balance Assessment Sitting Balance and Reactions Static Sitting Balance Ability Poor Dynamic Sitting Balance Ability Poor Standing Balance and Reactions Static Standing Balance Ability Poor Dynamic Standing Balance Ability Poor Device Used FWW M5 PT-IP Objective Assessments Start: 01/05/21 12:47 Freq: NEEDED Status: Active Protocol: Document 01/05/21 11:01 AB (Rec: 01/05/21 13:07 AB [id number]) Orientation Orientation/Cognition Level of Alertness Alert Orientation Name,Age,Birthday,Month,Date, Year,Day of Week,Place, Situation Language Function Ability No Deficits Noted Safety Awareness Understands Safety Issues Memory Description No Deficits Noted Gross Range of Motion Lower Extremity ROM Assessment Within Functional Limits Strength Lower Extremity Strength Assessment Bilaterally Impaired Hip 3+/5 Coordination Assessment Gross Coordination Gross Coordination WNL Sensation Assessment Sensation Gross Sensation WNL Muscle Tone Muscle Tone WNL Yes M6 PT-IP Treatment Start: 01/05/21 12:47 Freq: NEEDED Status: Active Protocol: Document 01/06/21 16:11 SP (Rec: 01/06/21 13:22 SP [id number]) Physical Therapy Treatment Education Education Provided Precautions,Weight Bearing Status,Safety M7 PT-IP Assessment and Plan Start: 01/05/21 12:47 Freq: NEEDED Status: Active Protocol: Document 01/08/21 10:58 [facility] (Rec: 01/08/21 11:23 JAYLIN [id number]) PT Summary Assessment and Plan Potential Rehabilitation Potential Good Status of Condition at Evaluation Stable Summary Impairments Pain,ROM,Strength,Balance, Coordination,Sensation,Tone, Cognition,Bed Mobility, Transfers,Gait,Activity Tolerance Progress Towards Goals Slow Progress due to Pain,Slow Progress due to Activity Tolerance Assessment Summary Pt improving with all mobility able to stand from low chair CGA and ambulate ~25ft w/FWW/ CGA. Pt will require SNF rehab to improve strength and activity tolerance. Goals Bed Mobility Goal Independent Transfer Goal Standby Assistance Gait Goal Standby Assistance Gait Distance 150 Other Goals up/down 16 steps L rail ascending SBA Days to Meet Goals 5 Frequency of Treatment Frequency Of Treatment Twice a Day Treatment Plan Physical Therapy Treatment Plan Bed Mobility Training,Transfer Training,Gait Training, Therapeutic Exercise,Balance Retraining,Post Op Education, Discharge Planning,Hot or Cold Pack,Neuromuscular Re-ed, Coordination Retraining,Manual Therapy Precautions Lumbar Precautions Log Roll,No Twisting,Limit Bending,Lifting Restriction of 10 lbs,Gait Belt above Incisional Area Recommendations To Nursing Amount of Assist Needed 1 Person Assist Discharge Recommendations PT Discharge Recommendations SNF Rehab Transportation Needs at Discharge Wheelchair/Cabulance
--- NOTE | 2021-01-08 13:42 | PC.NURSE ---
Pt A&Ox3. Reports pain well controlled with 5mg oxycodone this a.m. More alert this a.m. x1 min to moderate assist using FWW to chair. LS CTA, VSS, afebrile. Voiding frequently per baseline with prostate history, dark yellow urine. PO intake good. BS+x4, passing gas. LBM 01/04, medicated with PRN MOM. Incision x2 sites with teja intact, surrounding purple bruising. No swelling or drainage noted. Report given to Yun at [facility]. Pt transported with CPAP machine, all belongings, prescriptions and paperwork with designee via wheelchair at approximately 11:15 a.m. Verbalizes understanding of plan of care.
== END 2021-01-08 11:15 | DRG 455 ==
LOC: OR 11:25 → AC 11:29
PROVIDERS: Admitting Provider Orthopaedic Surgery Orthopaedic Surgery of the Spine; PCP Family Medicine Sports Medicine; Referring Provider Family Medicine Sports Medicine; Visit Provider Orthopaedic Surgery Orthopaedic Surgery of the Spine
PROC: 0SG00AJ Fusion of Lumbar Vertebral Joint with Interbody Fusion Device, Posterior Approach, Anterior Column, Open Approach (ICD-10-PCS; principal; 2021-01-04 13:15)
DX: M48.062 Spinal stenosis, lumbar region with neurogenic claudication (principal); I25.10 Atherosclerotic heart disease of native coronary artery without angina pectoris; I10 Essential (primary) hypertension; J45.909 Unspecified asthma, uncomplicated; E66.9 Obesity, unspecified; G47.33 Obstructive sleep apnea (adult) (pediatric); E78.5 Hyperlipidemia, unspecified; M43.16 Spondylolisthesis, lumbar region; Z68.39 Body mass index [BMI] 39.0-39.9, adult; Z85.46 Personal history of malignant neoplasm of prostate; Z20.822 Contact with and (suspected) exposure to COVID-19
CPT/HCPCS: 72100; 76000; 87635; 97161; 97165; 97530; 97535; C1776; C9803; C9290; J0330; J0690; J1100; J1170; J2250; J2405; J2704; J3010

== ENCOUNTER → 2021-01-15 14:44 | Outpatient (CLI) | payer MEDICARE, OTHER, SELFPAY ==
[2021-01-04 21:53] VITALS: BMI 39.3
--- NOTE | 2021-01-15 15:13 | DI.RAD.S_ITS ---
PROCEDURE: XR KUB INDICATIONS: STOOL TECHNIQUE: One view of the abdomen acquired. COMPARISON: None. FINDINGS: Surgical changes and devices: L4-L5 posterior/interbody fusion. Multiple lower surgical clips. Bowel: Abnormal bowel gas pattern. There is mild symmetric dilatation of both small and large bowel loops and short differential air height fluid levels are present within multiple loops of bowel. No pneumatosis or bowel wall thickening. No pneumoperitoneum. Soft tissues: No suspicious abdominal calcifications. Visualized solid organ contours appear normal in size. Penile implant. Bones: No suspicious bony lesions. IMPRESSION: Abnormal bowel gas pattern suggestive of early complete or partial small bowel obstruction or possibly adynamic ileus. Consider further evaluation with CT abdomen pelvis with IV contrast. Dictated by: Blu Marr [facility] Interpreted: Breezy Beyer MD on 01/15/2021 at 15:22 Transcribed by: DAVID on 01/15/2021 at 15:24 Approved by: Breezy Beyer M.D. on 01/15/2021 at 16:17
== END ==
PROVIDERS: PCP Family Medicine Sports Medicine; Referring Provider Nurse Practitioner; Visit Provider Nurse Practitioner
DX: K59.00 Constipation, unspecified (principal); R11.0 Nausea
CPT/HCPCS: 74018

== ENCOUNTER 2021-01-15 17:02 | Inpatient (IN) | payer MEDICARE, OTHER, SELFPAY ==
[2021-01-04 21:53] VITALS: BMI 39.3
[2021-01-15] VITALS (15 sets, daily range): BP systolic 121–184; BP diastolic 65–99; PULSE 51–96; RESP 15–30; TEMP 36.4–37.1; O2SAT 78–99; BMI 38.3
--- NOTE | 2021-01-15 | DI.RAD.S_ITS ---
PROCEDURE: FL SMALL BOWEL FOLLOW THROUGH INDICATIONS: small bowel obstruction COMPARISON: [facility], CT, CT ABDOMEN PELVIS W CON, 01/15/2021, 18:24. [facility], CR, XR KUB, 01/15/2021, 15:13. [facility], CR, XR KUB, 01/16/2021, 10:31. FINDINGS: KUB: Preprocedural house painter film demonstrates a normal bowel gas pattern. No suspicious abdominal calcifications. Visualized solid organ contours appear normal. No suspicious bony abnormalities. Age-appropriate bony degenerative changes are seen. Postoperative teja are seen. Lumbar fixation hardware is seen. A penile implant is seen. Bilateral pelvic clips are seen. Small bowel: There is sluggish transit through the small bowel, with contrast not clearly reaching the colon on the 4.5 hour image. Small-bowel loops are dilated to 4.5 cm. Mucosal folds are smooth and of normal thickness. No strictures, intraluminal masses, or extrinsic mass effects are noted. The terminal ileum is identified, and is normal in morphology. IMPRESSION: Abnormal sluggish transit through the small bowel, with contrast not clearly reaching the colon by the conclusion of this examination at 4.5 cm. Postoperative and degenerative changes are seen. Dictated by: Dallas Silver M.D. on 01/16/2021 at 10:53 Approved by: Dallas Silver M.D. on 01/16/2021 at 10:55
--- NOTE | 2021-01-15 17:46 | ED_ITS ---
HPI - Abdominal Pain General Chief Complaint: Abdominal Pain Stated Complaint: obstructed bowel Time Seen by Provider: 01/15/21 17:22 Source: patient Limitations: no limitations History of Present Illness HPI narrative: Patient is a 75-year-old male who presents with increasing abdominal pain and distention. He had a laminectomy 01/04/[address] Colvin he was discharged to [facility]. He states that his last bowel movement was 1 week ago. He has had multiple enemas milk of magnesia as magnesium citrate without success. He denies any pressure in his rectum. He is having increasing abdominal pain and distention along with nausea today. He had an outpatient KUB which did suggest early complete or partial small bowel obstruction or adynamic ileus. Patient in the ED for further evaluation. He denies any chest pain shortness of breath or fever. MD complaint: abdominal pain Onset (ago): day(s) Pain Consistency: constant Location: diffuse Severity: moderate Quality: cramping Related Data Home Medications Medication Instructions Recorded Confirmed aspirin 81 mg PO DAILY 12/29/20 01/15/21 lisinopril 10 mg PO DAILY 12/29/20 01/15/21 rosuvastatin 2.5 mg PO DAILY 12/29/20 01/15/21 Previous Rx's Medication Instructions Recorded acetaminophen 650 mg PO Q6HR PRN #90 tab 01/07/21 oxycodone 5 mg PO Q3HR PRN #60 tab 01/07/21 Allergies Allergy/AdvReac Type Severity Reaction Status Date / Time No Known Drug Allergies Allergy Verified 01/04/21 11:41 Review of Systems Review of Systems ROS Unobtainable: All systems reviewed & are unremarkable except as noted in HPI and below Constitutional Constitutional: Denies chills, Denies fever(s), Denies lethargy and Denies weakness ENT Ears, Nose, Mouth, and Throat: Denies change in voice, Denies neck pain and Denies sore throat Cardiovascular Cardiovascular: Denies chest pain, Denies irregular heart rhythm, Denies light headedness, Denies palpitations, Denies dyspnea, Denies dyspnea on exertion and Denies orthopnea Respiratory Respiratory: Denies cough, Denies dyspnea, Denies dyspnea on exertion and Denies wheezing Gastrointestinal Gastrointestinal: Reports as per HPI, Reports abdominal pain, Reports bloating, Reports constipation and Reports nausea Musculoskeletal Musculoskeletal: Reports as per HPI, Reports back pain and Denies neck pain Integumentary/Breasts Skin/Breast: Denies pruritus, Denies erythema, Denies rash and Denies wounds Neurologic Neurologic: Denies weakness Endocrine Endocrine: Denies palpitations Allergic/Immunologic Allergic/Immunologic: Denies wheezing Patient History Medical History (Updated 01/15/21 @ 22:27 by MAINOR Ware) Arthritis Asthma Atrial fibrillation CAD (coronary artery disease) CAD (coronary artery disease) Difficult airway Difficult intravenous access Essential hypertension HLD (hyperlipidemia) HTN (hypertension) Leg edema Lower back pain KORTNEY on CPAP Prostate cancer (~2006) Sciatica Surgical History (Updated 01/15/21 @ 22:27 by MAINOR Ware) H/O excision of lamina of lumbar vertebra for decompression of spinal cord History of arthroplasty of right knee (~2015) History of arthroscopy of left shoulder History of bilateral carpal tunnel release History of surgery (01/2020) Hx of arthroscopy of left knee Hx of heart artery stent (10/2014) Hx of knee surgery Hx of prostatectomy Hx of tonsillectomy Stented coronary artery Social History household members: spouse Smoking Status: Never smoker alcohol intake: never Smoking Status: Never smoker Substance Use Type: does not use Exam Initial Vital Signs Initial Vital Signs: Vital Signs Pulse Oximetry 98 01/15/21 17:27 GENERAL: Alert male BMI 38 and in no acute distress. HEENT: Head atraumatic,EOMI, pupils reactive, face symmetric, moist mucous membranes CARDIOVASCULAR: Regular rate and rhythm without murmurs, rubs or gallops. RESPIRATORY: Breath sounds equal bilaterally, no wheezes rales or rhonchi. ABDOMEN: Soft, slightly distended increased bowel sounds no localization of pain s EXTREMITIES: Normal range of motion, no clubbing or edema. Neurovascularly intact NEUROLOGICAL: Alert and oriented x4. Speech normal. Cranial nerves intact Cranial nerves II through XII grossly intact. SKIN: Warm, dry, no laceration, no petechiae, no rashes or lesions. Course Orders Ordered: ED Orders 01/16/21 06:45 Complete Blood Count AUTO DIFF Routine Comprehensive Metabolic Panel Routine Magnesium Routine Enoxaparin Sodium (Enoxaparin 40 Mg/0.4 Ml Syringe) 40 mg SUBCUT Q24H KELIN Lactated Ringer's (Lactated Ringers) 1,000 mls @ 150 mls/hr IV CONT ON LICENSE OF [facility] Last Admin: 01/16/21 04:36 Dose: 150 mls/hr Documented by: Infusion: 01/16/21 04:36 Dose: 150 mls/hr Documented by: Admin: 01/15/21 21:56 Dose: 150 mls/hr Documented by: MAIA Ketorolac Tromethamine (Ketorolac 30 Mg/Ml Vial) 30 mg IV Q12H PRN PRN Reason: Pain, Moderate (4-6) Stop: 01/20/21 22:47 Last Admin: 01/15/21 23:54 Dose: 30 mg Documented by: DARRYL Naloxone HCl (Naloxone 0.4 Mg/Ml Vial) 0.2 mg IV Q2MIN PRN PRN Reason: Opiate Reversal Discontinued Medications Enalaprilat (Enalaprilat 2.5 Mg/ 2 Ml Vial) 0.625 mg IV NOW ONE Stop: 01/15/21 21:52 Enoxaparin Sodium (Enoxaparin 40 Mg/0.4 Ml Syringe) 40 mg SUBCUT NOW ONE Stop: 01/15/21 22:46 Last Admin: 01/15/21 23:22 Dose: Not Given Documented by: SUZANNE Sodium Chloride (Normal Saline 0.9%) 1,000 mls @ 150 mls/hr IV CONT ON LICENSE OF [facility] Last Infusion: 01/15/21 21:22 Dose: 0 mls/hr Documented by: Admin: 01/15/21 18:05 Dose: 150 mls/hr Documented by: EVELINA Ondansetron HCl (Ondansetron 4 Mg/2 Ml Inj) 4 mg IV NOW ONE Stop: 01/15/21 17:31 Last Admin: 01/15/21 18:05 Dose: 4 mg Documented by: EVELINA Ondansetron HCl (Ondansetron 4 Mg/2 Ml Inj) 4 mg IV NOW ONE Stop: 01/15/21 20:15 Last Admin: 01/15/21 20:24 Dose: 4 mg Documented by: SATHISH Vital Signs Vital signs: Vital Signs - 8 hr 01/15/21 17:27 01/15/21 17:28 01/15/21 17:30 Temperature 98.7 F Pulse Rate 75 76 Respiratory Rate 20 Blood Pressure 153/72 H 150/66 H Pulse Oximetry 98 95 01/15/21 18:00 01/15/21 18:44 01/15/21 18:45 Temperature Pulse Rate 75 80 78 Respiratory Rate 24 24 24 Blood Pressure 167/82 H 146/70 H Pulse Oximetry 96 98 97 01/15/21 19:00 01/15/21 19:01 Temperature Pulse Rate 82 82 Respiratory Rate 24 Blood Pressure 121/65 Pulse Oximetry 95 98 MDM - Abdominal Pain Lab Data Attestation: I reviewed the patient's lab results. Result diagrams: 01/15/21 17:53 01/15/21 17:53 Labs: Lab Results 01/15/21 01/15/21 01/15/21 Range/Units 17:53 17:53 17:53 WBC 8.8 (4.5-11.0) X10^3/uL RBC 5.00 (4.5-5.9) X10^6/uL Hgb 15.0 (13.5-17.5) g/dL Hct 43.6 (41-53) % MCV 87.3 (80-100) fL MCH 29.9 (26-34) PG MCHC 34.3 (30-36) % RDW 16.8 H (11.6-14.8) % Plt Count 336 (150-400) X10^3/uL Neut % (Auto) 73.2 (50-75) % Lymph % (Auto) 12.2 L (25-40) % [place] % (Auto) 13.9 (3-14) % Eos % (Auto) 0.3 L (2-4) % Baso % (Auto) 0.4 (0-2) % Neut # (Auto) 6400 (6013-4939) /uL Lymph # (Auto) 1100 (4907-8834) /uL [place] # (Auto) 1200 H (0-900) /uL Eos # (Auto) 0 (0-450) /uL Baso # (Auto) 0 (0-100) /uL Sodium 131 L (137-145) mmol/L Potassium 4.6 (3.4-5.1) mmol/L Chloride 94 L (98-107) mmol/L Carbon Dioxide 27 (22-32) mmol/L BUN 32 H (9-20) mg/dL Creatinine 1.05 (0.66-1.25) mg/dL Estimated GFR > 60.0 (>60) mL/min BUN/Creatinine Ratio 30.5 H (6-22) Glucose 130 H (80-110) mg/dL Lactate 1.3 (0.7-2.1) mmol/L Calcium 9.3 (8.4-10.2) mg/dL Total Bilirubin 1.9 H (0.2-1.3) mg/dL AST 38 (17-59) IU/L ALT 50 H (<50) IU/L Alkaline Phosphatase 84 (38-126) U/L Total Creatine Kinase (55-170) U/L CK-MB (CK-2) CK-MB (CK-2) Rel Index Troponin I (0.01-0.034) ng/mL Total Protein 7.5 (6.3-8.2) g/dL Albumin 3.8 (3.5-5.0) g/dL Globulin 3.7 (1.7-4.1) g/dL Albumin/Globulin Ratio 1.0 (1.0-2.8) Lipase 64 (23-300) U/L Ur Bilirubin Confirm (Negative) SARS-CoV-2 (PCR) (Negative) 01/15/21 01/15/21 01/15/21 Range/Units 17:53 19:35 19:41 WBC (4.5-11.0) X10^3/uL RBC (4.5-5.9) X10^6/uL Hgb (13.5-17.5) g/dL Hct (41-53) % MCV (80-100) fL MCH (26-34) PG MCHC (30-36) % RDW (11.6-14.8) % Plt Count (150-400) X10^3/uL Neut % (Auto) (50-75) % Lymph % (Auto) (25-40) % [place] % (Auto) (3-14) % Eos % (Auto) (2-4) % Baso % (Auto) (0-2) % Neut # (Auto) (9595-1975) /uL Lymph # (Auto) (2373-1429) /uL [place] # (Auto) (0-900) /uL Eos # (Auto) (0-450) /uL Baso # (Auto) (0-100) /uL Sodium (137-145) mmol/L Potassium (3.4-5.1) mmol/L Chloride (98-107) mmol/L Carbon Dioxide (22-32) mmol/L BUN (9-20) mg/dL Creatinine (0.66-1.25) mg/dL Estimated GFR (>60) mL/min BUN/Creatinine Ratio (6-22) Glucose (80-110) mg/dL Lactate (0.7-2.1) mmol/L Calcium (8.4-10.2) mg/dL Total Bilirubin (0.2-1.3) mg/dL AST (17-59) IU/L ALT (<50) IU/L Alkaline Phosphatase (38-126) U/L Total Creatine Kinase 67 (55-170) U/L CK-MB (CK-2) TNP CK-MB (CK-2) Rel Index TNP Troponin I < 0.012 (0.01-0.034) ng/mL Total Protein (6.3-8.2) g/dL Albumin (3.5-5.0) g/dL Globulin (1.7-4.1) g/dL Albumin/Globulin Ratio (1.0-2.8) Lipase (23-300) U/L Ur Bilirubin Confirm Negative (Negative) SARS-CoV-2 (PCR) Negative (Negative) Point of care testing: Urine Dip Bedside Urine Glucose Negative Bedside Urine Bilirubin ++ 2 Bedside Urine Ketone +/- 5 Urine Specific [place] 1.030 Bedside Urine Occult Blood - Negative Bedside Urine pH 6.0 Bedside Urine Protein - Negative Bedside Urine Urobilinogen 2+ 4mg Bedside Urine Nitrite - Negative Bedside Urine Leukocytes - Negative Esterase Imaging Data CT scan - abdomen/pelvis: Radiologist's Impression: PROCEDURE: CT ABDOMEN PELVIS W CON INDICATIONS: pain ?obstruction TECHNIQUE: After the administration of intravenous contrast, 5 mm thick sections acquired from the diaphragm to the symphysis. 5 mm coronal and sagittal reformats were acquired. For radiation dose reduction, the following was used: automated exposure control, adjustment of mA and/or kV according to patient size. COMPARISON: None. FINDINGS: Image quality: Excellent. ABDOMEN: Lung bases: Lung bases are clear. Heart size is normal. Solid organs: Liver is normal in size and enhancement. Gallbladder is grossly unremarkable. Biliary system is non dilated. Pancreas enhances normally. Spleen is normal in size and enhancement. No adrenal nodules. Kidneys demonstrate normal size and enhancement, without hydronephrosis. Peritoneum and bowel: Small hiatal hernia. Stomach is nondistended. Multiple moderately dilated loops of proximal and mid small bowel. Distal small bowel is nondistended. Transition zone between dilated and nondilated small bowel is not well seen secondary to lack of oral contrast. Appendix is not seen. No evidence of appendicitis. The right colon is mildly distended. Remainder of the colon is nondistended. No free fluid or air. Nodes and vessels: No retroperitoneal or mesenteric adenopathy by size criteria. Aorta and inferior vena cava are normal in size. Miscellaneous: No ventral hernias. PELVIS: Prosthesis reservoir within the right anterior pelvis. Genitourinary: Bladder wall thickness is normal. Miscellaneous: No inguinal hernias or adenopathy. Bones: No suspicious bony lesions. No vertebral body compression fractures. IMPRESSION: 1. Moderate small bowel obstruction. 2. Small hiatal hernia. Dictated by: Kriss Geronimo M.D. on 01/15/2021 at 18:58 ECG Data Attestation: I personally reviewed and interpreted this ECG as follows: Prior ECG tracings: not available for review Interpretation: Normal sinus rhythm rate 73 p.r. interval 148 QRS [address] changes no priors to compare MDM Narrative Medical decision making narrative: Patient is not vomiting. CT does confirm moderate small-bowel obstruction with transition point. His [address] Dr. Davies updated patient's symptoms test results will review scans himself. Discharge Plan Departure Patient Disposition: Admitted as Observation Clinical Impression: Bowel obstruction Admit Date/Time: 01/15/21 21:00 Admit Provider: Devonte Davies
--- NOTE | 2021-01-15 17:51 | DI.CT.S_ITS ---
PROCEDURE: CT ABDOMEN PELVIS W CON INDICATIONS: pain ?obstruction TECHNIQUE: After the administration of intravenous contrast, 5 mm thick sections acquired from the diaphragm to the symphysis. 5 mm coronal and sagittal reformats were acquired. For radiation dose reduction, the following was used: automated exposure control, adjustment of mA and/or kV according to patient size. COMPARISON: None. FINDINGS: Image quality: Excellent. ABDOMEN: Lung bases: Lung bases are clear. Heart size is normal. Solid organs: Liver is normal in size and enhancement. Gallbladder is grossly unremarkable. Biliary system is non dilated. Pancreas enhances normally. Spleen is normal in size and enhancement. No adrenal nodules. Kidneys demonstrate normal size and enhancement, without hydronephrosis. Peritoneum and bowel: Small hiatal hernia. Stomach is nondistended. Multiple moderately dilated loops of proximal and mid small bowel. Distal small bowel is nondistended. Transition zone between dilated and nondilated small bowel is not well seen secondary to lack of oral contrast. Appendix is not seen. No evidence of appendicitis. The right colon is mildly distended. Remainder of the colon is nondistended. No free fluid or air. Nodes and vessels: No retroperitoneal or mesenteric adenopathy by size criteria. Aorta and inferior vena cava are normal in size. Miscellaneous: No ventral hernias. PELVIS: Prosthesis reservoir within the right anterior pelvis. Genitourinary: Bladder wall thickness is normal. Miscellaneous: No inguinal hernias or adenopathy. Bones: No suspicious bony lesions. No vertebral body compression fractures. IMPRESSION: 1. Moderate small bowel obstruction. 2. Small hiatal hernia. Dictated by: Kriss Geronimo M.D. on 01/15/2021 at 18:58 Approved by: Kriss Geronimo M.D. on 01/15/2021 at 19:01
[2021-01-15 18:03] LABS: Add Manual Diff / Slide Review NO; Basophils Absolute Auto 0 /uL (0-100); Basophils Percent Auto 0.4 % (0-2); Eosinophils Absolute Auto 0 /uL (0-450); Eosinophils Percent Auto 0.3 % (2-4); Hematocrit 43.6 % (41-53); Lymphocytes Absolute Auto 1100 /uL (1100-4500); Lymphocytes Percent Auto 12.2 % (25-40); Mean Corpuscular HGB Conc 34.3 % (30-36); Mean Corpuscular Hemoglobin 29.9 PG (26-34); Mean Corpuscular Volume 87.3 fL (80-100); Monocytes Absolute Auto 1200 /uL (0-900); Monocytes Percent Auto 13.9 % (3-14); Neutrophils Absolute Auto 6400 /uL (1500-7000); Neutrophils Percent Auto 73.2 % (50-75); Platelet Count 336 X10^3/uL (150-400); Red Cell Distribution Width 16.8 % (11.6-14.8); White Blood Cell Count 8.8 X10^3/uL (4.5-11.0)
[2021-01-15] MEDS: ONDANSETRON 4 MG/2 ML INJ IV ×2 (18:05→20:24)
[2021-01-15] MEDS: SODIUM CHLORIDE 0.9% 1,000 ML 150 ML IV (18:05)
[2021-01-15 18:17] LABS: Alanine Aminotransferase 50 IU/L (<50); Albumin 3.8 g/dL (3.5-5.0); Alkaline Phosphatase 84 U/L (38-126); Aspartate Aminotransferase 38 IU/L (17-59); BUN Creatinine Ratio 30.5 (6-22); Bilirubin Total 1.9 mg/dL (0.2-1.3); Blood Urea Nitrogen 32 mg/dL (9-20); Calcium 9.3 mg/dL (8.4-10.2); Carbon Dioxide 27 mmol/L (22-32); Chloride 94 mmol/L (98-107); Creatine Kinase 67 U/L (55-170); Estimated Glomerular Filt Rate > 60.0 mL/min (>60); Globulin 3.7 g/dL (1.7-4.1); Glucose 130 mg/dL (80-110); HEMOLYSIS < 15 (0-50); Lipase 64 U/L (23-300); Potassium 4.6 mmol/L (3.4-5.1); Sodium 131 mmol/L (137-145); Total Protein 7.5 g/dL (6.3-8.2)
[2021-01-15 18:18] LABS: Lactate (Lactic Acid) 1.3 mmol/L (0.7-2.1)
[2021-01-15 18:28] LABS: Troponin I < 0.012 ng/mL (0.01-0.034)
[2021-01-15 19:47] LABS: Ictotest Urine Negative (Negative)
--- NOTE | 2021-01-15 20:28 | P.HP_ITS ---
History of Present Illness History of Present Illness Date Patient Seen: 01/15/21 Time Patient Seen: 20:31 Chief complaint: obstructed bowel Narrative: Patient is a gentleman who had back surgery about 10 days ago for pain in his right leg. That pain was relieved. He was in the hospital for about 4 days and then transferred to a nursing facility. While in the hospital he had had no bowel movements and was given suppositories and stool softeners at the nursing facility and had 2 brief episodes of bowel movements. His abdomen is gradually distended and become uncomfortable. He feels like he would really be helped by vomiting but has not vomited. He has not had this happen before. He has had no prior abdominal procedures except for prostatectomy. Patient History Medical History Arthritis Asthma Atrial fibrillation CAD (coronary artery disease) Difficult airway Difficult intravenous access HLD (hyperlipidemia) HTN (hypertension) Leg edema Lower back pain KORTNEY on CPAP Prostate cancer (~2006) Sciatica Surgical History History of arthroplasty of right knee (~2015) History of arthroscopy of left shoulder History of bilateral carpal tunnel release History of surgery (01/2020) Hx of arthroscopy of left knee Hx of heart artery stent (10/2014) Hx of knee surgery Hx of prostatectomy Hx of tonsillectomy Family & Social History Social History: household members spouse Safety & Behavioral: Feels Safe in Current Yes Environment Tobacco & Substance use: Smoking Status Never smoker alcohol intake never Substance Use Type does not use Meds Home Medications and Allergies Home Medications Medication Instructions Recorded Confirmed Type aspirin 81 mg PO DAILY 12/29/20 01/04/21 History lisinopril 10 mg PO DAILY 12/29/20 01/04/21 History rosuvastatin 2.5 mg PO DAILY 12/29/20 01/04/21 History acetaminophen 650 mg PO Q6HR PRN #90 tab 01/07/21 Rx oxycodone 5 mg PO Q3HR PRN #60 tab 01/07/21 Rx Allergies Allergy/AdvReac Type Severity Reaction Status Date / Time No Known Drug Allergies Allergy Verified 01/04/21 11:41 Review of Systems Review of Systems Narrative: Patient wears glasses. No pain is eyes earache sore throats or tooth aches. No cough or cold he had asthma in the past does not use medication for however. He has had a stent placed elsewhere for generally feeling tired as he has symptom of cardiac disease. He has not had recurrence of that symptoms since the stent was placed around 2010. Patient does suffer from hypertension and had a history of atrial fibrillation but is now in sinus. Patient's last colonoscopy was in 2010. His father had colon cancer. He has not seen any marvin ck or bloody bowel movements prior to this events. He does have some difficulties urinating and has to periodically see a urologist. He has swelling of his lower extremities. No seizures or blackouts. Exam Vital Signs (past 8 hours): - 01/15/21 17:27 01/15/21 17:28 01/15/21 17:30 Temperature 98.7 F Pulse Rate 75 76 Respiratory Rate 20 Blood Pressure 153/72 H 150/66 H Pulse Oximetry 98 95 01/15/21 18:00 01/15/21 18:44 01/15/21 18:45 Temperature Pulse Rate 75 80 78 Respiratory Rate 24 24 24 Blood Pressure 167/82 H 146/70 H Pulse Oximetry 96 98 97 01/15/21 19:00 01/15/21 19:01 01/15/21 19:30 Temperature Pulse Rate 82 82 75 Respiratory Rate 24 26 H Blood Pressure 121/65 165/79 H Pulse Oximetry 95 98 01/15/21 20:00 Temperature Pulse Rate 75 Respiratory Rate 19 Blood Pressure 159/99 H Pulse Oximetry 78 L Oxygen Delivery Method Room Air Narrative Exam Narrative: Cooperative gentleman. Leg rather still in a semi Goss's position. Eyes are nonicteric. Ears without lesion. No nodes in the neck supraclavicular areas. Lungs are clear to auscultation without rales or rhonchi in equal percussion. Heart regular rate and rhythm I hear no murmur gallop no bruit in the neck no heave lift or thrill abdomen is quite distended but soft. Nontender. No ventral hernias appreciated. No groin hernias appreciated. His scar in his right knee from a prior operation. 3+ pretibial pitting edema. Patient is alert oriented. Speech rate and content are appropriate. Affect is appropriate. Objective Imaging CT scan - abdomen: My impression: Non dilated stomach. Small bowel uniformly dilated but not markedly so. Colon with air to the proximal sigmoid. Collapsed distal to this. Labs Result Diagrams: 01/15/21 17:53 01/15/21 17:53 Labs: Laboratory Results - last 24 hr 01/15/21 01/15/21 01/15/21 17:53 17:53 17:53 WBC 8.8 RBC 5.00 Hgb 15.0 Hct 43.6 MCV 87.3 MCH 29.9 MCHC 34.3 RDW 16.8 H Plt Count 336 Neut % (Auto) 73.2 Lymph % (Auto) 12.2 L [place] % (Auto) 13.9 Eos % (Auto) 0.3 L Baso % (Auto) 0.4 Neut # (Auto) 6400 Lymph # (Auto) 1100 [place] # (Auto) 1200 H Eos # (Auto) 0 Baso # (Auto) 0 Sodium 131 L Potassium 4.6 Chloride 94 L Carbon Dioxide 27 BUN 32 H Creatinine 1.05 Estimated GFR > 60.0 BUN/Creatinine Ratio 30.5 H Glucose 130 H Lactate 1.3 Calcium 9.3 Total Bilirubin 1.9 H AST 38 ALT 50 H Alkaline Phosphatase 84 Total Creatine Kinase CK-MB (CK-2) CK-MB (CK-2) Rel Index Troponin I Total Protein 7.5 Albumin 3.8 Globulin 3.7 Albumin/Globulin Ratio 1.0 Lipase 64 Ur Bilirubin Confirm 01/15/21 01/15/21 17:53 19:35 WBC RBC Hgb Hct MCV MCH MCHC RDW Plt Count Neut % (Auto) Lymph % (Auto) [place] % (Auto) Eos % (Auto) Baso % (Auto) Neut # (Auto) Lymph # (Auto) [place] # (Auto) Eos # (Auto) Baso # (Auto) Sodium Potassium Chloride Carbon Dioxide BUN Creatinine Estimated GFR BUN/Creatinine Ratio Glucose Lactate Calcium Total Bilirubin AST ALT Alkaline Phosphatase Total Creatine Kinase 67 CK-MB (CK-2) TNP CK-MB (CK-2) Rel Index TNP Troponin I < 0.012 Total Protein Albumin Globulin Albumin/Globulin Ratio Lipase Ur Bilirubin Confirm Negative Assessment & Plan Assessment & Plan narrative: Patient with a recent back surgery on narcotics was dose was recently increased. Suspect what he has is a postoperative ileus mass grating is a bowel obstruction though a bowel obstruction is possible. The most likely cause would be adhesions though he has not had prior intra-abdominal surgery with the exception of possibly related to his prostate though that is usually an extraperitoneal procedure. I would like to perform a small-bowel follow-through on the patient. I have talked to the radiology techs regarding this. If patient cannot tolerate drinking the contrast then will have to place an NG tube. I think it is likely that he will open up. I have asked the texted performed films about every 2 hours overnight.
[2021-01-15 20:45] LABS: COVID19 - ADMIT (NP swab/PCR) Negative (Negative)
[2021-01-15] MEDS: LACTATED RINGERS 1,000 ML 150 ML IV (21:56)
--- NOTE | 2021-01-15 22:18 | P.CONS_ITS ---
History of Present Illness Consult details Date Patient Seen: 01/15/21 Time Patient Seen: 22:19 Chief complaint: obstructed bowel Reason for consult: Blood pressure management Requesting provider: Devonte Davies Narrative: Keith Nguyen is a 75 y.o. male who is status post lumbar surgery on 01/04 and discharged on 01/07 to acute rehab. Per the ED provider, he had not had a bowel movement as of discharge. Today he represented back to the ED with abdominal bloating and wanting to vomit as he still had not had a bowel movement. I was requested to consult on his blood pressure regimen. Prior to arrival at the floor, he underwent a small bowel follow through and if he develops intractable vomiting, an NG tube will need to be placed. He has a history of essential hypertension, coronary stent placement in 2010, and a prostatectomy in 2006. He sees , [facility] in [place]. Patient just states that he has not had a bowel movement since his surgery and that he was doing much better than when he went into the assisted. Patient was admitted by Dr. Davies who ordered a small bowel follow through. Shortly after I came to the room, he reported he needed to use the bathroom and as of 2229, he had a large bowel movement. Patient's temperature is 97.6?, blood pressure 123/70, heart rate 96, respiratory rate 15, oxygen saturation 97% on room air, he weighs 128.3 kg with a BMI of 38. CBC is unremarkable, he is mildly hyponatremic with a sodium of 131, potassium 4.6, chloride 94, bicarb 27, BUN 32, creatinine 1.05, with a GFR of greater than 60, glucose was 130, lactate 1.3, his total bilirubin is 1.9, and COVID-19 PCR is negative. Meds Home Medications and Allergies Home Medications Medication Instructions Recorded Confirmed Type aspirin 81 mg PO DAILY 12/29/20 01/15/21 History lisinopril 10 mg PO DAILY 12/29/20 01/15/21 History rosuvastatin 2.5 mg PO DAILY 12/29/20 01/15/21 History acetaminophen 650 mg PO Q6HR PRN #90 tab 01/07/21 01/15/21 Rx oxycodone 5 mg PO Q3HR PRN #60 tab 01/07/21 01/15/21 Rx Allergies Allergy/AdvReac Type Severity Reaction Status Date / Time No Known Drug Allergies Allergy Verified 01/04/21 11:41 Review of Systems Review of Systems ROS: Yes All systems reviewed with the patient and are negative except as otherwise documented Exam Vital Signs (past 8 hours): - 01/15/21 17:27 01/15/21 17:28 01/15/21 17:30 Temperature 98.7 F Pulse Rate 75 76 Respiratory Rate 20 Blood Pressure 153/72 H 150/66 H Pulse Oximetry 98 95 01/15/21 18:00 01/15/21 18:44 01/15/21 18:45 Temperature Pulse Rate 75 80 78 Respiratory Rate 24 24 24 Blood Pressure 167/82 H 146/70 H Pulse Oximetry 96 98 97 01/15/21 19:00 01/15/21 19:01 01/15/21 19:30 Temperature Pulse Rate 82 82 75 Respiratory Rate 24 26 H Blood Pressure 121/65 165/79 H Pulse Oximetry 95 98 01/15/21 20:00 01/15/21 20:30 01/15/21 20:31 Temperature Pulse Rate 75 78 82 Respiratory Rate 19 30 H 29 H Blood Pressure 159/99 H 184/85 H Pulse Oximetry 78 L 97 98 01/15/21 21:00 01/15/21 21:51 Temperature 97.6 F Pulse Rate 51 L 96 H Respiratory Rate 15 Blood Pressure 123/70 Pulse Oximetry 92 97 Oxygen Delivery Method Room Air Oxygen Flow Rate 0 Narrative Exam Narrative: Gen: Alert, oriented, obese y.o. male, lethargic HEENT: normocephalic, atraumatic, conjunctiva clear, sclera non-icteric, oral mucosa pink and moist Neck: supple, full ROM, no JVD, trachea is midline Resp: Lungs CTA, non-labored breathing CV: RRR, no murmur or rubs Abd: distended, hard, non-tender normoactive BTs Skin: Significant bruising on his right arm antecubital area as well as the surgical site on his back that extends almost around to his lateral hips no sally inage seen from the surgical dressing Neuro: Alert and oriented X 4 w/no focal deficits. Speech clear and coherent. Extremities: moves all 4 extremities, is ambulatory, negative [place]?s sign Psyche: normal mood and affect. Objective Labs Result Diagrams: 01/15/21 17:53 01/15/21 17:53 Labs: Laboratory Results - last 24 hr 01/15/21 01/15/21 01/15/21 17:53 17:53 17:53 WBC 8.8 RBC 5.00 Hgb 15.0 Hct 43.6 MCV 87.3 MCH 29.9 MCHC 34.3 RDW 16.8 H Plt Count 336 Neut % (Auto) 73.2 Lymph % (Auto) 12.2 L [place] % (Auto) 13.9 Eos % (Auto) 0.3 L Baso % (Auto) 0.4 Neut # (Auto) 6400 Lymph # (Auto) 1100 [place] # (Auto) 1200 H Eos # (Auto) 0 Baso # (Auto) 0 Sodium 131 L Potassium 4.6 Chloride 94 L Carbon Dioxide 27 BUN 32 H Creatinine 1.05 Estimated GFR > 60.0 BUN/Creatinine Ratio 30.5 H Glucose 130 H Lactate 1.3 Calcium 9.3 Total Bilirubin 1.9 H AST 38 ALT 50 H Alkaline Phosphatase 84 Total Creatine Kinase CK-MB (CK-2) CK-MB (CK-2) Rel Index Troponin I Total Protein 7.5 Albumin 3.8 Globulin 3.7 Albumin/Globulin Ratio 1.0 Lipase 64 Ur Bilirubin Confirm SARS-CoV-2 (PCR) 01/15/21 01/15/21 01/15/21 17:53 19:35 19:41 WBC RBC Hgb Hct MCV MCH MCHC RDW Plt Count Neut % (Auto) Lymph % (Auto) [place] % (Auto) Eos % (Auto) Baso % (Auto) Neut # (Auto) Lymph # (Auto) [place] # (Auto) Eos # (Auto) Baso # (Auto) Sodium Potassium Chloride Carbon Dioxide BUN Creatinine Estimated GFR BUN/Creatinine Ratio Glucose Lactate Calcium Total Bilirubin AST ALT Alkaline Phosphatase Total Creatine Kinase 67 CK-MB (CK-2) TNP CK-MB (CK-2) Rel Index TNP Troponin I < 0.012 Total Protein Albumin Globulin Albumin/Globulin Ratio Lipase Ur Bilirubin Confirm Negative SARS-CoV-2 (PCR) Negative Assessment & Plan Assessment & Plan narrative: Keith Nguyen is a 75 y.o. male status post lumbar laminectomy who developed an ileus likely secondary to postoperative immobility and pain managem ent. Essential hypertension, hypertensive on admission appears to be resolved -he normally takes lisinopril but currently he is on NPO status. He can receive IV enalapril as needed for blood pressure. Hyperlipidemia and coronary artery disease, chronic -he can continue his home dose of rosuvastatin 2.5 mg daily and aspirin 81 mg p.o. daily likely tonight 01/16 Small-bowel ileus likely secondary to postoperative immobility and pain management -patient had at least 2 large volume bowel movements after having undergone a small-bowel follow-through -will defer to surgery for diet status and pharmacological VTE prophylaxis It is anticipated the patient will be able to take p.o. medications in the morning and be discharged. Currently his blood pressure and presenting problem appear to have been resolved. Thank you for providing us with the opportunity to consult on this patient and please feel free to contact us if you need any further assistance on medical management.
--- NOTE | 2021-01-15 22:53 | PC.NURSE ---
Addendum entered by Jenny Kim R.N. 01/15/21 23:23: Discussion with Dr. Davies via telephone. Pt to remain NPO even though pt requests oral fluids. Surgeon was made aware pt has had two large liquid stools in bathroom and incontinent of stool x 2. MD also informed of pt's extensive bruising to back s/p surgery and taking daily low dose aspirin. Verbal order to hold enoxaparin this evening until Dr. Crooks sees pt in the a.m. Original Note: Pt to room 223 from E.R. via wheelchair. Prefers to sit up in recliner briefly and then to bed positioned onto right side. MAINOR Reed in to see patient. Pt assisted into bathroom to attempt stool. Bowel tones present with distended abdomen. Large liquid stool per [employer]. Xray in to perform imaging once pt returned to bed. BL calf scd's placed as ordered. Pt NPO.
--- NOTE | 2021-01-15 23:30 | PC.NURSE ---
Received pt from JOHANNA Renner at 1999. At this time, pt SaO2 low to mid 90s on 2LNC. Pt educated and encouraged to deep breathe and cough, also educated on use of IS by RN and RT. Pt demonstrated proper use of IS. Pt pain managed with PRN medications. Pt received PRN pain med oxycodone and scheduled gabapentin at 2114. When rechecked around 2149, pt reported pain medications significantly helped and that he felt much better. However, his oxygen saturation showed to be in the low 80s. Pt denied any lightheadedness, shortness of breath, or difficulty breathing. Pt repositioned in bed, performed several deep breaths and coughs, and pulse oximeter probe repositioned and changed out. Oxygen saturations persisted in the low 80s, 84 at best. Respiratory therapy called to help evaluate patient as well. Patient arousable, alert, and responsive, able to carry out conversations. MAINOR Palacios notified of decline in pt oxygenation status and present at the bedside within minutes. Stat CR, ABGs and duoned treatment ordered for pt. Pt currently has sao2 of 90 on 15L high flow nasal cannula.
[2021-01-15] MEDS: KETOROLAC 30 MG/ML VIAL IV (23:54)
[2021-01-16] VITALS (8 sets, daily range): BP systolic 118–134; BP diastolic 64–74; PULSE 72–100; RESP 16–18; TEMP 36.2–36.6; O2SAT 95–100
[2021-01-16] MEDS: LACTATED RINGERS 1,000 ML 150 ML IV (04:36)
--- NOTE | 2021-01-16 06:21 | PC.NURSE ---
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 No nausea, NPO, LR @ 150ml/hr. IV Toradol given for back pain from recent back surgery, drsg changed once, teja intact.
[2021-01-16 07:04] LABS: Alanine Aminotransferase 46 IU/L (<50); Albumin 3.5 g/dL (3.5-5.0); Albumin Globulin Ratio 1.1 (1.0-2.8); Alkaline Phosphatase 70 U/L (38-126); Aspartate Aminotransferase 35 IU/L (17-59); BUN Creatinine Ratio 32.7 (6-22); Blood Urea Nitrogen 36 mg/dL (9-20); Calcium 8.9 mg/dL (8.4-10.2); Carbon Dioxide 25 mmol/L (22-32); Chloride 100 mmol/L (98-107); Estimated Glomerular Filt Rate > 60.0 mL/min (>60); Globulin 3.1 g/dL (1.7-4.1); Glucose 117 mg/dL (80-110); HEMOLYSIS 22 (0-50); Magnesium 2.4 mg/dL (1.6-2.3); Potassium 4.2 mmol/L (3.4-5.1); Sodium 135 mmol/L (137-145); Total Protein 6.6 g/dL (6.3-8.2)
[2021-01-16 07:12] LABS: Add Manual Diff / Slide Review NO; Basophils Absolute Auto 0 /uL (0-100); Basophils Percent Auto 0.2 % (0-2); Eosinophils Absolute Auto 0 /uL (0-450); Eosinophils Percent Auto 0.2 % (2-4); Hematocrit 41.7 % (41-53); Hemoglobin 14.1 g/dL (13.5-17.5); Lymphocytes Absolute Auto 1200 /uL (1100-4500); Lymphocytes Percent Auto 13.4 % (25-40); Mean Corpuscular HGB Conc 33.8 % (30-36); Mean Corpuscular Hemoglobin 29.5 PG (26-34); Mean Corpuscular Volume 87.2 fL (80-100); Monocytes Absolute Auto 1400 /uL (0-900); Monocytes Percent Auto 15.5 % (3-14); Neutrophils Absolute Auto 6300 /uL (1500-7000); Neutrophils Percent Auto 70.7 % (50-75); Platelet Count 314 X10^3/uL (150-400); Red Blood Cell Count 4.78 X10^6/uL (4.5-5.9); Red Cell Distribution Width 16.6 % (11.6-14.8); White Blood Cell Count 8.9 X10^3/uL (4.5-11.0)
--- NOTE | 2021-01-16 08:29 | PM.PN.1 ---
Subjective Subjective Date Patient Seen: 01/16/21 Time Patient Seen: 08:29 Interval history: Patient states that he is not in any discomfort at the moment. He reports that he has been progressing well following his surgery, with the only complaint being that he has not had a bowel movement in 1 week. He explains that he feels that he has lost a slight amount of strength in the bilateral lower extremities since the operation on January 04, 2021. Patient is otherwise not experiencing fever, chills, nausea, chest pain, shortness of breath, or urinary retention. Exam Vital Signs (past 8 hours): - 01/16/21 05:34 Pulse Oximetry 95 Oxygen Delivery Method Room Air Oxygen Flow Rate 0 Narrative Exam Narrative: 75-year-old male appears slightly agitated. Patient is resting comfortably in chair, is in no acute distress, is alert and oriented x3. Skin is warm and dry, with noted ecchymosis on the left flank extending inferiorly toward the sacrum. Minimal tenderness to palpation to the flanks bilateral. Incision site is free of erythema, warmth, induration, or discharge. Bandage over the incision site is free of strike through, it is clean and dry. Good sensation appreciated throughout the bilateral lower extremities to light touch. Palpable, capillary refill less than 2 seconds. Ankle inversion, eversion, dorsiflexion, plantar flexion performed bilaterally without difficulty or discomfort. Hip flexion performed bilaterally without complication. Calves are soft and nontender, negative Homans sign. No tenderness to palpation along the 4 quadrants of the abdomen. Tympany appreciated upon percussion of the abdomen in all 4 quadrants. Const General: cooperative, healthy appearing and comfortable Resp Effort & Inspection: normal respiratory effort and able to speak in complete sentences Skin Other: Normal other than the above-listed description. Objective Labs Result Diagrams: 01/16/21 06:45 01/16/21 06:45 Labs: Laboratory Results - last 24 hr 01/15/21 01/15/21 01/15/21 17:53 17:53 17:53 WBC 8.8 RBC 5.00 Hgb 15.0 Hct 43.6 MCV 87.3 MCH 29.9 MCHC 34.3 RDW 16.8 H Plt Count 336 Neut % (Auto) 73.2 Lymph % (Auto) 12.[address] [place] % (Auto) 13.9 Eos % (Auto) 0.3 L Baso % (Auto) 0.4 Neut # (Auto) 6400 Lymph # (Auto) 1100 [place] # (Auto) 1200 H Eos # (Auto) 0 Baso # (Auto) 0 Sodium 131 L Potassium 4.6 Chloride 94 L Carbon Dioxide 27 BUN 32 H Creatinine 1.05 Estimated GFR > 60.0 BUN/Creatinine Ratio 30.5 H Glucose 130 H Lactate 1.3 Calcium 9.3 Magnesium Total Bilirubin 1.9 H AST 38 ALT 50 H Alkaline Phosphatase 84 Total Creatine Kinase CK-MB (CK-2) CK-MB (CK-2) Rel Index Troponin I Total Protein 7.5 Albumin 3.8 Globulin 3.7 Albumin/Globulin Ratio 1.0 Lipase 64 Ur Bilirubin Confirm SARS-CoV-2 (PCR) 01/15/21 01/15/21 01/15/21 17:53 19:35 19:41 WBC RBC Hgb Hct MCV MCH MCHC RDW Plt Count Neut % (Auto) Lymph % (Auto) [place] % (Auto) Eos % (Auto) Baso % (Auto) Neut # (Auto) Lymph # (Auto) [place] # (Auto) Eos # (Auto) Baso # (Auto) Sodium Potassium Chloride Carbon Dioxide BUN Creatinine Estimated GFR BUN/Creatinine Ratio Glucose Lactate Calcium Magnesium Total Bilirubin AST ALT Alkaline Phosphatase Total Creatine Kinase 67 CK-MB (CK-2) TNP CK-MB (CK-2) Rel Index TNP Troponin I < 0.012 Total Protein Albumin Globulin Albumin/Globulin Ratio Lipase Ur Bilirubin Confirm Negative SARS-CoV-2 (PCR) Negative 01/16/21 01/16/21 06:45 06:45 WBC 8.9 RBC 4.78 Hgb 14.1 Hct 41.7 MCV 87.2 MCH 29.5 MCHC 33.8 RDW 16.6 H Plt Count 314 Neut % (Auto) 70.7 Lymph % (Auto) 13.[address] % (Auto) 15.5 H Eos % (Auto) 0.2 L Baso % (Auto) 0.2 Neut # (Auto) 6300 Lymph # (Auto) 1200 [place] # (Auto) 1400 H Eos # (Auto) 0 Baso # (Auto) 0 Sodium 135 L Potassium 4.2 Chloride 100 Carbon Dioxide 25 BUN 36 H Creatinine 1.10 Estimated GFR > 60.0 BUN/Creatinine Ratio 32.7 H Glucose 117 H Lactate Calcium 8.9 Magnesium 2.4 H Total Bilirubin 1.0 AST 35 ALT 46 Alkaline Phosphatase 70 Total Creatine Kinase CK-MB (CK-2) CK-MB (CK-2) Rel Index Troponin I Total Protein 6.6 Albumin 3.5 Globulin 3.1 Albumin/Globulin Ratio 1.1 Lipase Ur Bilirubin Confirm SARS-CoV-2 (PCR) [facility] Medical History Arthritis Asthma Atrial fibrillation CAD (coronary artery disease) CAD (coronary artery disease) Difficult airway Difficult intravenous access Essential hypertension HLD (hyperlipidemia) HTN (hypertension) Leg edema Lower back pain KORTNEY on CPAP Prostate cancer (~2006) Sciatica Surgical History H/O excision of lamina of lumbar vertebra for decompression of spinal cord History of arthroplasty of right knee (~2015) History of arthroscopy of left shoulder History of bilateral carpal tunnel release History of surgery (01/2020) Hx of arthroscopy of left knee Hx of heart artery stent (10/2014) Hx of knee surgery Hx of prostatectomy Hx of tonsillectomy Stented coronary artery Social History household members: spouse Smoking Status: Never smoker alcohol intake: never Assessment & Plan Assessment & Plan narrative: Patient is doing well overall and nursing has reported recent bowel movements. No blood has been noted in the patient's urine. He has denied fever chills nausea, chest pain, shortness of breath, or urinary retention throughout his stay. The patient will be continued to be monitored by the hospitalist. Dr. Crooks has been informed of the patient's return to the hospital.
--- NOTE | 2021-01-16 09:51 | P.PN_ITS ---
Exam Vital Signs (past 8 hours): - 01/16/21 05:34 01/16/21 07:50 Temperature 97.8 F Pulse Rate 88 Respiratory Rate 16 Blood Pressure 118/67 Pulse Oximetry 95 100 Oxygen Delivery Method Room Air Oxygen Flow Rate 0 Objective Labs Result Diagrams: 01/16/21 06:45 01/16/21 06:45 Labs: Laboratory Results - last 24 hr 01/15/21 01/15/21 01/15/21 17:53 17:53 17:53 WBC 8.8 RBC 5.00 Hgb 15.0 Hct 43.6 MCV 87.3 MCH 29.9 MCHC 34.3 RDW 16.8 H Plt Count 336 Neut % (Auto) 73.2 Lymph % (Auto) 12.2 L [place] % (Auto) 13.9 Eos % (Auto) 0.3 L Baso % (Auto) 0.4 Neut # (Auto) 6400 Lymph # (Auto) 1100 [place] # (Auto) 1200 H Eos # (Auto) 0 Baso # (Auto) 0 Sodium 131 L Potassium 4.6 Chloride 94 L Carbon Dioxide 27 BUN 32 H Creatinine 1.05 Estimated GFR > 60.0 BUN/Creatinine Ratio 30.5 H Glucose 130 H Lactate 1.3 Calcium 9.3 Magnesium Total Bilirubin 1.9 H AST 38 ALT 50 H Alkaline Phosphatase 84 Total Creatine Kinase CK-MB (CK-2) CK-MB (CK-2) Rel Index Troponin I Total Protein 7.5 Albumin 3.8 Globulin 3.7 Albumin/Globulin Ratio 1.0 Lipase 64 Ur Bilirubin Confirm SARS-CoV-2 (PCR) 01/15/21 01/15/21 01/15/21 17:53 19:35 19:41 WBC RBC Hgb Hct MCV MCH MCHC RDW Plt Count Neut % (Auto) Lymph % (Auto) [place] % (Auto) Eos % (Auto) Baso % (Auto) Neut # (Auto) Lymph # (Auto) [place] # (Auto) Eos # (Auto) Baso # (Auto) Sodium Potassium Chloride Carbon Dioxide BUN Creatinine Estimated GFR BUN/Creatinine Ratio Glucose Lactate Calcium Magnesium Total Bilirubin AST ALT Alkaline Phosphatase Total Creatine Kinase 67 CK-MB (CK-2) TNP CK-MB (CK-2) Rel Index TNP Troponin I < 0.012 Total Protein Albumin Globulin Albumin/Globulin Ratio Lipase Ur Bilirubin Confirm Negative SARS-CoV-2 (PCR) Negative 01/16/21 01/16/21 06:45 06:45 WBC 8.9 RBC 4.78 Hgb 14.1 Hct 41.7 MCV 87.2 MCH 29.5 MCHC 33.8 RDW 16.6 H Plt Count 314 Neut % (Auto) 70.7 Lymph % (Auto) 13.4 L [place] % (Auto) 15.5 H Eos % (Auto) 0.2 L Baso % (Auto) 0.2 Neut # (Auto) 6300 Lymph # (Auto) 1200 [place] # (Auto) 1400 H Eos # (Auto) 0 Baso # (Auto) 0 Sodium 135 L Potassium 4.2 Chloride 100 Carbon Dioxide 25 BUN 36 H Creatinine 1.10 Estimated GFR > 60.0 BUN/Creatinine Ratio 32.7 H Glucose 117 H Lactate Calcium 8.9 Magnesium 2.4 H Total Bilirubin 1.0 AST 35 ALT 46 Alkaline Phosphatase 70 Total Creatine Kinase CK-MB (CK-2) CK-MB (CK-2) Rel Index Troponin I Total Protein 6.6 Albumin 3.5 Globulin 3.1 Albumin/Globulin Ratio 1.1 Lipase Ur Bilirubin Confirm SARS-CoV-2 (PCR) [facility] Medical History Arthritis Asthma Atrial fibrillation CAD (coronary artery disease) CAD (coronary artery disease) Difficult airway Difficult intravenous access Essential hypertension HLD (hyperlipidemia) HTN (hypertension) Leg edema Lower back pain KORTNEY on CPAP Prostate cancer (~2006) Sciatica Surgical History H/O excision of lamina of lumbar vertebra for decompression of spinal cord History of arthroplasty of right knee (~2015) History of arthroscopy of left shoulder History of bilateral carpal tunnel release History of surgery (01/2020) Hx of arthroscopy of left knee Hx of heart artery stent (10/2014) Hx of knee surgery Hx of prostatectomy Hx of tonsillectomy Stented coronary artery Social History household members: spouse Smoking Status: Never smoker alcohol intake: never Assessment & Plan Assessment & Plan narrative: Patient re-admitted for lack of BM since discharge over 1 week ago. Patient has since then had multiple BM and patient feels much better. On exam, his dressing/incision is clean and dry. Patient is neuro intact on exam. Patient can be discharged once cleared by general surgery. Patient can keep previously scheduled clinic f/u with me.
--- NOTE | 2021-01-16 10:19 | P.PN_ITS ---
Subjective Subjective Date Patient Seen: 01/16/21 Time Patient Seen: 09:30 Interval history: Pt admitted with SBO vs ileus. Passing lots of stool after SBFT last night. Denies nausea/vomiting. Exam Vital Signs (past 8 hours): - 01/16/21 05:34 01/16/21 07:50 Temperature 97.8 F Pulse Rate 88 Respiratory Rate 16 Blood Pressure 118/67 Pulse Oximetry 95 100 Oxygen Delivery Method Room Air Oxygen Flow Rate 0 Narrative Exam Narrative: GENERAL: Alert, comfortable. Appears stated age. Answers questions promptly and appropriately. Vital signs noted. HENT: Normocephalic, atraumatic. Hearing intact. EYES: Conjunctiva pink, sclera white, no periorbital swelling. CARDIOVASCULAR: Regular rate. 1+ pedal edema. RESPIRATORY: Non-tachypneic, breathing comfortably on room air. GASTROINTESTINAL: Abdomen rounded, prominent, nontender MUSCULOSKELETAL: Equal tone and mass bilaterally. Objective Imaging Abdominal x-ray: Radiologist's impression: [address] [id number] ReportSigned Patient: Keith Nguyen Jr JMR#: [id number]: [id number]:[id number]/Sex: 75 / MDate of Service: 01/16/21Lo: [id number] 1Accession Number: [id number] Procedure: XR KUB Ordering Provider: Urvashi Venegas MD PROCEDURE: XR KUB INDICATIONS: evaluate for persistent bowel dilation after SBFT TECHNIQUE: One view of the abdomen acquired. COMPARISON: [facility], [place], [place] SMALL BOWEL FOLLOW THROUGH, 01/15/2021, 20:[address] [facility], CT, CT ABDOMEN PELVIS W CON, 01/15/2021, 18:24. [facility], CR, XR KUB, 01/15/2021, 15:13. FINDINGS: Surgical changes and devices: Lumbar spine fixation hardware is seen. Anterior abdominal wall teja are seen. Penile implant. Bowel: The previously administered oral contrast is partially seen within the small bowel, yet contrast can be seen within the ascending colon. Small bowel loops measure up to 4.4 cm. Soft tissues: No suspicious abdominal calcifications. Visualized solid organ contours appear normal in size. Bones: No suspicious bony lesions. IMPRESSION: Prominent loops of small bowel are again seen, measuring up to 4.4 cm. No complete small bowel obstruction, as oral contrast can also be seen within the colon. Dictated by: Dallas Silver M.D. on 01/16/2021 at 10:01 Labs Result Diagrams: 01/16/21 06:45 01/16/21 06:45 Labs: Laboratory Results - last 24 hr 01/15/21 01/15/21 01/15/21 17:53 17:53 17:53 WBC 8.8 RBC 5.00 Hgb 15.0 Hct 43.6 MCV 87.3 MCH 29.9 MCHC 34.3 RDW 16.8 H Plt Count 336 Neut % (Auto) 73.2 Lymph % (Auto) 12.2 L [place] % (Auto) 13.9 Eos % (Auto) 0.3 L Baso % (Auto) 0.4 Neut # (Auto) 6400 Lymph # (Auto) 1100 [place] # (Auto) 1200 H Eos # (Auto) 0 Baso # (Auto) 0 Sodium 131 L Potassium 4.6 Chloride 94 L Carbon Dioxide 27 BUN 32 H Creatinine 1.05 Estimated GFR > 60.0 BUN/Creatinine Ratio 30.5 H Glucose 130 H Lactate 1.3 Calcium 9.3 Magnesium Total Bilirubin 1.9 H AST 38 ALT 50 H Alkaline Phosphatase 84 Total Creatine Kinase CK-MB (CK-2) CK-MB (CK-2) Rel Index Troponin I Total Protein 7.5 Albumin 3.8 Globulin 3.7 Albumin/Globulin Ratio 1.0 Lipase 64 Ur Bilirubin Confirm SARS-CoV-2 (PCR) 01/15/21 01/15/21 01/15/21 17:53 19:35 19:41 WBC RBC Hgb Hct MCV MCH MCHC RDW Plt Count Neut % (Auto) Lymph % (Auto) [place] % (Auto) Eos % (Auto) Baso % (Auto) Neut # (Auto) Lymph # (Auto) [place] # (Auto) Eos # (Auto) Baso # (Auto) Sodium Potassium Chloride Carbon Dioxide BUN Creatinine Estimated GFR BUN/Creatinine Ratio Glucose Lactate Calcium Magnesium Total Bilirubin AST ALT Alkaline Phosphatase Total Creatine Kinase 67 CK-MB (CK-2) TNP CK-MB (CK-2) Rel Index TNP Troponin I < 0.012 Total Protein Albumin Globulin Albumin/Globulin Ratio Lipase Ur Bilirubin Confirm Negative SARS-CoV-2 (PCR) Negative 01/16/21 01/16/21 06:45 06:45 WBC 8.9 RBC 4.78 Hgb 14.1 Hct 41.7 MCV 87.2 MCH 29.5 MCHC 33.8 RDW 16.6 H Plt Count 314 Neut % (Auto) 70.7 Lymph % (Auto) 13.4 L [place] % (Auto) 15.5 H Eos % (Auto) 0.2 L Baso % (Auto) 0.2 Neut # (Auto) 6300 Lymph # (Auto) 1200 [place] # (Auto) 1400 H Eos # (Auto) 0 Baso # (Auto) 0 Sodium 135 L Potassium 4.2 Chloride 100 Carbon Dioxide 25 BUN 36 H Creatinine 1.10 Estimated GFR > 60.0 BUN/Creatinine Ratio 32.7 H Glucose 117 H Lactate Calcium 8.9 Magnesium 2.4 H Total Bilirubin 1.0 AST 35 ALT 46 Alkaline Phosphatase 70 Total Creatine Kinase CK-MB (CK-2) CK-MB (CK-2) Rel Index Troponin I Total Protein 6.6 Albumin 3.5 Globulin 3.1 Albumin/Globulin Ratio 1.1 Lipase Ur Bilirubin Confirm SARS-CoV-2 (PCR) [facility] Medical History Arthritis Asthma Atrial fibrillation CAD (coronary artery disease) CAD (coronary artery disease) Difficult airway Difficult intravenous access Essential hypertension HLD (hyperlipidemia) HTN (hypertension) Leg edema Lower back pain KORTNEY on CPAP Prostate cancer (~2006) Sciatica Surgical History H/O excision of lamina of lumbar vertebra for decompression of spinal cord History of arthroplasty of right knee (~2015) History of arthroscopy of left shoulder History of bilateral carpal tunnel release History of surgery (01/2020) Hx of arthroscopy of left knee Hx of heart artery stent (10/2014) Hx of knee surgery Hx of prostatectomy Hx of tonsillectomy Stented coronary artery Social History household members: spouse Smoking Status: Never smoker alcohol intake: never Assessment & Plan Assessment and plan (1) Essential hypertension: Status: Chronic (2) CAD (coronary artery disease): Status: Chronic (3) Ileus: Status: Acute Assessment & Plan narrative: Pt admitted last night with CT scan that looked like SBO. He has passed many stools with SBFT. Post SBFT KUB looks like he still has an ileus. Advance to clear liquid diet Ambulate as much as tolerated bowel regimen Minimize narcotics COVID-19 COVID-19 status: Negative Result date/Date tested (Pos, Neg/Pending): 01/15/21 Time Spent With Patient Time with patient: 25 - 35 minutes
[2021-01-16] MEDS: KETOROLAC 30 MG/ML VIAL IV ×2 (11:00→22:44)
[2021-01-16] MEDS: SODIUM CHLORIDE 0.9% FLUSH 10 ML IV ×2 (11:00→20:23)
--- NOTE | 2021-01-16 11:35 | PT.IIE ---
Current Diagnoses Essential (primary) hypertension (01/15/21) Atherosclerotic heart disease of [place] coronary artery without angina pectoris (01/15/21) Ileus, unspecified (01/15/21) Surgical History (Last Reviewed 01/16/21 @ 12:18 by Urvashi Venegas MD) H/O excision of lamina of lumbar vertebra for decompression of spinal cord History of arthroplasty of right knee (~2015) History of arthroscopy of left shoulder History of bilateral carpal tunnel release History of surgery (01/2020) Hx of arthroscopy of left knee Hx of heart artery stent (10/2014) Hx of knee surgery Hx of prostatectomy Hx of tonsillectomy Stented coronary artery Medical History (Last Reviewed 01/16/21 @ 12:18 by Urvashi Venegas MD) Arthritis Asthma Atrial fibrillation CAD (coronary artery disease) CAD (coronary artery disease) Difficult airway Difficult intravenous access Essential hypertension HLD (hyperlipidemia) HTN (hypertension) Leg edema Lower back pain KORTNEY on CPAP Prostate cancer (~2006) Sciatica Physical Therapy Inpatient Evaluation/Re-Eval M1 PT/OT-IP Prior Functional Status Start: 01/16/21 13:21 Freq: NEEDED Status: Active Protocol: Document 01/16/21 11:35 AB (Rec: 01/16/21 13:34 AB [id number]) Medical Review Prior Functional Status Medical History Reviewed Yes Communication able to make needs known Mobility and Gait pt was indpeendent with all mobilities and ambulation without AD prior to back surgery Prior Functional Level (Other details) pt s/p back surgery 01/08/21 and went to SNF afterwards; pt admitted to the hospital for bowel obstruction. pt stated that he will go home from here and does not want to go back to SNF Social History Household Members spouse Living Arrangements House Number of Floors (Floors) Two Floors Number of Stairs To Enter/Railing? no steps to enter 16 steps L rail ascending to bedroom level Home Environment High Toilet,Tub/Shower Home Equipment Four Wheel Walker,Hand Held Shower Additional Social History Comment stated that his son will put grab bars and that they will buy a FWW from [employer] M2 PT-IP Current Condition Start: 01/16/21 13:21 Freq: NEEDED Status: Active Protocol: Document 01/16/21 11:35 AB (Rec: 01/16/21 13:34 AB [id number]) Physical Therapy Current Condition Current Condition Evaluation Date 01/16/21 Treatment Diagnosis bowel obstuction; s/p TLIF; difficulty in walking Onset Date 01/15/21 Precautions Lumbar Precautions Log Roll,No Twisting,Limit Bending,Lifting Restriction of 10 lbs,Gait Belt above Incisional Area M3 PT-IP Subjective Start: 01/16/21 13:21 Freq: NEEDED Status: Active Protocol: Document 01/16/21 11:35 AB (Rec: 01/16/21 13:34 [id number]) Subjective Physical Therapy Visit Type Type Initial Evaluation Visit Start Time 11:35 Visit Stop Time 12:30 Total Visit Minutes 20 Notes seen for split visits: 1135 to 1140 am and 1215 to 1230 pm. Number of TECH[employer]ICIAN [employer] MAINTENANCE Visits 0 Physical Therapy Visit Comments Patient Comments pt initially refusing due to concerns of uncontrolled bowel movement but agreed on 2nd attempt Therapy Pain Assessment Pain When Pain Assessed At Rest Pain Present Pain Present Pain Reported Location Abdomen Scale Used pain scale not stated Pain Management Techniques Distraction,Modification of Treatment,Timing of Activity with Medications M4 PT-IP Mobility and Gait Start: 01/16/21 13:21 Freq: NEEDED Status: Active Protocol: Document 01/16/21 11:35 AB (Rec: 01/16/21 13:34 [id number]) PT-Bed Mobility Assessment Supine to Sit Supine to Sit Standby Assistance Sit to Supine Sit to Supine Standby Assistance Scooting Scooting to Edge of Bed Standby Assistance Scooting Up and Down in Bed Standby Assistance PT-Transfer Assessment Sit to and From Stand Sit to and from Stand Standby Assistance Equipment Transfer Assistive Device Gait Belt,Front Wheeled Walker Orthotic/Prosthetic Devices or Brace: No Transfers Transfer Destination Bed,Chair Transfer Technique ambulated with FWW Transfer Ability Level of Assist Standby Assistance,Use of Upper Extremities Comments Mobility Comments pt is able to recall back precautions and log roll bed mobility. completed sit to stand from chair SBA and ambulated in room ~ 35 ft. hesistant to do bed mobility and stated that is triggers his bowel movement. pt eventually agreed to try and completed SBA. pt used bed rail for bed mobility and stated that he uses his head board to pull from to assist him at home. pt ambulated back to his chair using FWW SBA. call light and table placed within reach. Gait Assessment Gait Gait Assistance Required: Standby Assistance Distance (Feet) 30 Able to Maintain Weight Bearing Status Yes During Gait Assistive Devices Assistive Device Front Wheeled Walker Orthotic/Prosthetic Devices or Brace: No Gait Deviations General Gait Pattern Decreased Stride Length, Decreased Feet Clearance,Wide Based Gait Factors Limiting Gait Function Factors Limiting Gait Function Decreased Activity Tolerance, Decreased Strength,Limited Range of Motion,Pain,Poor Balance PT-Balance Assessment Sitting Balance and Reactions Static Sitting Balance Ability Good Dynamic Sitting Balance Ability Good Standing Balance and Reactions Static Standing Balance Ability Good Dynamic Standing Balance Ability Fair Device Used FWW M5 PT-IP Objective Assessments Start: 01/16/21 13:21 Freq: NEEDED Status: Active Protocol: Document 01/16/21 11:35 AB (Rec: 01/16/21 13:34 AB [id number]) Orientation Orientation/Cognition Level of Alertness Alert Language Function Ability No Deficits Noted Safety Awareness Understands Safety Issues Memory Description No Deficits Noted Gross Range of Motion Lower Extremity ROM Assessment Within Functional Limits Strength Lower Extremity Strength Assessment Within Functional Limits Coordination Assessment Gross Coordination Gross Coordination WNL Sensation Assessment Sensation Gross Sensation WNL Muscle Tone Muscle Tone WNL Yes M6 PT-IP Treatment Start: 01/16/21 13:21 Freq: NEEDED Status: Active Protocol: Document 01/16/21 11:35 AB (Rec: 01/16/21 13:34 AB [id number]) Physical Therapy Treatment Education Education Provided Precautions,Weight Bearing Status,Safety M7 PT-IP Assessment and Plan Start: 01/16/21 13:21 Freq: NEEDED Status: Active Protocol: Document 01/16/21 11:35 AB (Rec: 01/16/21 13:34 AB [id number]) PT Summary Assessment and Plan Potential Rehabilitation Potential Good Status of Condition at Evaluation Stable Summary Impairments Pain,ROM,Strength,Balance, Coordination,Sensation,Tone, Cognition,Bed Mobility, Transfers,Gait,Activity Tolerance Assessment Summary pt requiring SBA with mobility using FWW. pt went to SNF after back surgery but does not want to return to SNF this time upon d/c. bottle caser informed PT that spouse is concerned about pt going home. caregiver training was set up at 11 am for tomorrow with spouse per bottle caser. stair climbing training will also be conducted. will continue to assess progress. Goals Bed Mobility Goal Independent Transfer Goal Independent,Front Wheeled Walker Gait Goal Independent,Front Wheel Walker Gait Distance 250 Other Goals up/down 16 steps L rail ascending SBA Days to Meet Goals 5 Frequency of Treatment Frequency Of Treatment Once a Day Treatment Plan Physical Therapy Treatment Plan Bed Mobility Training,Transfer Training,Gait Training, Therapeutic Exercise,Balance Retraining,Post Op Education, Discharge Planning,Hot or Cold Pack,Neuromuscular Re-ed, Coordination Retraining,Manual Therapy Other Recommendations and Next Treatment caregiver trainin/9 @ 11am Focus Precautions Lumbar Precautions Log Roll,No Twisting,Limit Bending,Lifting Restriction of 10 lbs,Gait Belt above Incisional Area Recommendations To Nursing Amount of Assist Needed Standby Assistance Discharge Recommendations PT Discharge Recommendations Home with Assistance Equipment Needed for Home Before FWW Discharge Transportation Needs at Discharge Private Vehicle
--- NOTE | 2021-01-16 13:06 | CM.DANOTE ---
Patient is a 75 year old male who was READMIT on 01/15/21 for SBO. Pt has [facility] and [facility] [employer] and his PCP is Dr. Kareem Sears. EMR was reviewed. Per Surgeon, pt was admitted with no bm for a few days with abdomen distention and recommendation for SBFT. Pt completed his bowel prep and has now had copious bowel movements and feeling better but not stable for d/c yet today but likely tomorrow. SW met bedside with pt and explained role and he confirms that he was admitted for planned surgery for his back pain a couple weeks ago and discharged to [facility] as he was requiring 2PA for transfers and ambulation. Pt confirms that he typically lives at home with his in [place] and has been independent with ADL's until his back pain increased and was debilitating which is why he decided to have back surgery. Pt did not progress and quickly as he anticipated but states he feels he has improved enough during his 10 days at [facility] to where his preference is home with spouse at d/c. Pt states he has one local adult son who can assist some with transport home and getting settled and occasional assist if needed and another son in [place] who is driving up tonight for the weekend and could be available to help pt get settled at home too if pt discharges on Monday as anticipated. Pt requested the STATISTICAL CONSULTANT call his spouse to discuss CG training with PT/OT here and his preference not to d/c back to SNF. SW called pt's spouse Olivia and explained role and she discussed her concerns with pt discharging home based on the SNF team's recommendations and that she can assist some but only limited physical assist as pt is significantly larger than she is. Spouse states she is aware that pt does not want to return to [facility] or go to SNF but spouse is agreeable with either SNF in [facility] if pt is not safe for return home. SW spoke to PT after initial eval and pt was mostly SBA and able to ambulate and feels pt likely will be safe for d/c home with spouse at discharge. Will complete stairs and CG training to confirm tomorrow. SW called spouse back and updated on PT recommendation and she is appreciative and can be bedside around 1100 tomorrow for CG training with PT. Spouse also states she is aware of HH but right now her preference is to set pt back up with [facility] near their home that pt has worked with many times in the past. Spouse states she will update both of her sons so that they can assist getting pt home tomorrow if stable for d/c. SW updated PT on arrival time of spouse to be bedside for CG training. SW called [facility] admissions and updated on likely pt d/c home rather than SNF and [facility] will follow in case pt requires SNF still at d/c. Plan: SW to follow closely after CG training with pt and spouse and PT tomorrow around 1100 to confirm he is safe for d/c home with family assist and outpt PT. STEPHANE Rogers Discharge Planning/Care Management CM Discharge Assessment Start: 01/16/21 12:39 Freq: Status: Active Protocol: Document 01/16/21 12:41 BF (Rec: 01/16/21 13:04 BF [id number]) Discharge Planning Assessment Assigned Skein Spooler STEPHANE Orozco DPOA/Assigned Designee Name spouse Olivia Contact Information [phone] Advance Directives? No: Pt unsure Advance Directives on File No History Provided By Patient,Significant Other, Medical Record Has Patient been admitted in last 30 Yes days? Comment recent ortho back surg with d/ c to SNF on 01/08/21 Prior Living Arrangements House Household Members spouse Type of transporation used prior to Drives own vehicle admit Independent with ADL's Yes Is patient alert and oriented? Yes Caregiver for Another No Community Services used prior to Physical Therapy admission: Comment Has been established with [facility] for years DME Already Rented / Owned FWW / Walker Patient/Family Preference OP PT Therapy Barriers to Discharge No Discharge Plan Home Community Services Physical Therapy Transportation Arrangement Spouse and one adult son can help with transport home if pt safe for home discharge, otherwise SNF facility van Additional Comment Pending further PT/OT eval and CG training Review Status In Process Please Provide Date Initial DC 01/16/21 Assessment Was Performed Next Review Type Continued Stay Review
--- NOTE | 2021-01-16 13:48 | OT.IPNOTE ---
OT order received. Chart reviewed and discussed with P.T., pt, and CM. Pt states he feels confident in all of his ADLs and does not need OT services at this time. Per pt request, will discharge OT orders.
--- NOTE | 2021-01-16 14:23 | P.PN_ITS ---
Subjective Subjective Date Patient Seen: 01/16/21 Time Patient Seen: 14:28 Interval history: 75 year old male admitted for ileus. Medicine consulted for assistance with hypertension which has improved today. Patient had multiple bowel movements after small bowel follow through, although being monitored after follow up imaging. Patient denies nausea or vomiting today. Denies headache, vision changes, shortness of breath. Exam Vital Signs (past 8 hours): - 01/16/21 07:50 Temperature 97.8 F Pulse Rate 88 Respiratory Rate 16 Blood Pressure 118/67 Pulse Oximetry 100 Oxygen Delivery Method Room Air Oxygen Flow Rate 0 Narrative Exam Narrative: Gen: Alert, oriented, obese y.o. male HEENT: normocephalic, atraumatic, conjunctiva clear, sclera non-icteric, oral mucosa pink and moist Neck: supple, full ROM, no JVD, trachea is midline Resp: Lungs CTA, non-labored breathing CV: RRR, no murmur or rubs Abd: mildly distended, obese, non-tender. Skin: Significant bruising on his right arm antecubital area as well as the surgical site on his back that extends almost around to his lateral hips no drainage seen from the surgical dressing Neuro: Alert and oriented X 4 w/no focal deficits. Speech clear and coherent. Extremities: moves all 4 extremities, is ambulatory, negative [place]?s sign Psyche: normal mood and affect. Objective Labs Result Diagrams: 01/16/21 06:45 01/16/21 06:45 Labs: Laboratory Results - last 24 hr 01/15/21 01/15/21 01/15/21 17:53 17:53 17:53 WBC 8.8 RBC 5.00 Hgb 15.0 Hct 43.6 MCV 87.3 MCH 29.9 MCHC 34.3 RDW 16.8 H Plt Count 336 Neut % (Auto) 73.2 Lymph % (Auto) 12.2 L [place] % (Auto) 13.9 Eos % (Auto) 0.3 L Baso % (Auto) 0.4 Neut # (Auto) 6400 Lymph # (Auto) 1100 [place] # (Auto) 1200 H Eos # (Auto) 0 Baso # (Auto) 0 Sodium 131 L Potassium 4.6 Chloride 94 L Carbon Dioxide 27 BUN 32 H Creatinine 1.05 Estimated GFR > 60.0 BUN/Creatinine Ratio 30.5 H Glucose 130 H Lactate 1.3 Calcium 9.3 Magnesium Total Bilirubin 1.9 H AST 38 ALT 50 H Alkaline Phosphatase 84 Total Creatine Kinase CK-MB (CK-2) CK-MB (CK-2) Rel Index Troponin I Total Protein 7.5 Albumin 3.8 Globulin 3.7 Albumin/Globulin Ratio 1.0 Lipase 64 Ur Bilirubin Confirm SARS-CoV-2 (PCR) 01/15/21 01/15/21 01/15/21 17:53 19:35 19:41 WBC RBC Hgb Hct MCV MCH MCHC RDW Plt Count Neut % (Auto) Lymph % (Auto) [place] % (Auto) Eos % (Auto) Baso % (Auto) Neut # (Auto) Lymph # (Auto) [place] # (Auto) Eos # (Auto) Baso # (Auto) Sodium Potassium Chloride Carbon Dioxide BUN Creatinine Estimated GFR BUN/Creatinine Ratio Glucose Lactate Calcium Magnesium Total Bilirubin AST ALT Alkaline Phosphatase Total Creatine Kinase 67 CK-MB (CK-2) TNP CK-MB (CK-2) Rel Index TNP Troponin I < 0.012 Total Protein Albumin Globulin Albumin/Globulin Ratio Lipase Ur Bilirubin Confirm Negative SARS-CoV-2 (PCR) Negative 01/16/21 01/16/21 06:45 06:45 WBC 8.9 RBC 4.78 Hgb 14.1 Hct 41.7 MCV 87.2 MCH 29.5 MCHC 33.8 RDW 16.6 H Plt Count 314 Neut % (Auto) 70.7 Lymph % (Auto) 13.4 L [place] % (Auto) 15.5 H Eos % (Auto) 0.2 L Baso % (Auto) 0.2 Neut # (Auto) 6300 Lymph # (Auto) 1200 [place] # (Auto) 1400 H Eos # (Auto) 0 Baso # (Auto) 0 Sodium 135 L Potassium 4.2 Chloride 100 Carbon Dioxide 25 BUN 36 H Creatinine 1.10 Estimated GFR > 60.0 BUN/Creatinine Ratio 32.7 H Glucose 117 H Lactate Calcium 8.9 Magnesium 2.4 H Total Bilirubin 1.0 AST 35 ALT 46 Alkaline Phosphatase 70 Total Creatine Kinase CK-MB (CK-2) CK-MB (CK-2) Rel Index Troponin I Total Protein 6.6 Albumin 3.5 Globulin 3.1 Albumin/Globulin Ratio 1.1 Lipase Ur Bilirubin Confirm SARS-CoV-2 (PCR) [facility] Medical History Arthritis Asthma Atrial fibrillation CAD (coronary artery disease) CAD (coronary artery disease) Difficult airway Difficult intravenous access Essential hypertension HLD (hyperlipidemia) HTN (hypertension) Leg edema Lower back pain KORTNEY on CPAP Prostate cancer (~2006) Sciatica Surgical History H/O excision of lamina of lumbar vertebra for decompression of spinal cord History of arthroplasty of right knee (~2015) History of arthroscopy of left shoulder History of bilateral carpal tunnel release History of surgery (01/2020) Hx of arthroscopy of left knee Hx of heart artery stent (10/2014) Hx of knee surgery Hx of prostatectomy Hx of tonsillectomy Stented coronary artery Social History household members: spouse Smoking Status: Never smoker alcohol intake: never Assessment & Plan Assessment & Plan narrative: Keith Nguyen is a 75 y.o. male status post lumbar laminectomy who developed an ileus likely secondary to postoperative immobility and pain management. Medicine was consulted for assistance with hypertension, which has been controlled. He has had bowel movements after small bowel follow through, but being watched given follow up imaging. Essential hypertension, hypertensive on admission appears to be resolved -he normally takes lisinopril. Can resume home medications and blood pressure appears to be controlled currently. No changes recommended. Hyperlipidemia and coronary artery disease, chronic -he can continue his home dose of rosuvastatin 2.5 mg daily and aspirin 81 mg p.o. daily. Small-bowel ileus likely secondary to postoperative immobility and pain m anagement -patient had multuple bowel movements after having undergone a small-bowel follow-through -will defer to surgery for diet status and pharmacological VTE prophylaxis medicine will sign off at this time. Please do not hesitate to contact us with additional questions or for additional recommendations. Code: Full, surrogate decision maker / emergency contact is the patient's spouse, Olivia.
[2021-01-16] MEDS: ENOXAPARIN 40 MG/0.4 ML SYRINGE SUBCUT (20:23)
[2021-01-16] MEDS: lisinopriL 5 MG TABLET 10 MG PO (21:51)
[2021-01-17] VITALS (10 sets, daily range): BP systolic 112–126; BP diastolic 62–68; PULSE 58–62; RESP 15–24; TEMP 36.3–36.4; O2SAT 95–100
[2021-01-17] MEDS: MELATONIN 3 MG TABLET 6 MG PO ×2 (03:44→20:26)
[2021-01-17] MEDS: ACETAMINOPHEN 325 MG TABLET 650 MG PO ×3 (05:26→20:05)
[2021-01-17 06:07] LABS: Add Manual Diff / Slide Review NO; Basophils Absolute Auto 100 /uL (0-100); Eosinophils Absolute Auto 100 /uL (0-450); Hematocrit 40.5 % (41-53); Hemoglobin 13.3 g/dL (13.5-17.5); Lymphocytes Absolute Auto 1500 /uL (1100-4500); Lymphocytes Percent Auto 23.2 % (25-40); Mean Corpuscular HGB Conc 32.8 % (30-36); Mean Corpuscular Hemoglobin 28.9 PG (26-34); Mean Corpuscular Volume 88.2 fL (80-100); Monocytes Absolute Auto 900 /uL (0-900); Monocytes Percent Auto 14.2 % (3-14); Neutrophils Absolute Auto 3900 /uL (1500-7000); Neutrophils Percent Auto 59.6 % (50-75); Platelet Count 324 X10^3/uL (150-400); Red Blood Cell Count 4.59 X10^6/uL (4.5-5.9); Red Cell Distribution Width 16.5 % (11.6-14.8); White Blood Cell Count 6.5 X10^3/uL (4.5-11.0)
[2021-01-17 06:16] LABS: BUN Creatinine Ratio 38.1 (6-22); Blood Urea Nitrogen 40 mg/dL (9-20); Calcium 8.8 mg/dL (8.4-10.2); Carbon Dioxide 27 mmol/L (22-32); Chloride 101 mmol/L (98-107); Estimated Glomerular Filt Rate > 60.0 mL/min (>60); Glucose 106 mg/dL (80-110); HEMOLYSIS < 15 (0-50); Magnesium 2.3 mg/dL (1.6-2.3); Potassium 3.9 mmol/L (3.4-5.1); Sodium 135 mmol/L (137-145)
--- NOTE | 2021-01-17 07:00 | DI.RAD.S_ITS ---
PROCEDURE: XR KUB INDICATIONS: interval change in ileus TECHNIQUE: One view of the abdomen acquired. COMPARISON: [facility], RF, FL SMALL BOWEL FOLLOW THROUGH, 01/15/2021, 20:29. [facility], CT, CT ABDOMEN PELVIS W CON, 01/15/2021, 18:24. [facility], CR, XR KUB, 01/16/2021, 10:31. FINDINGS: Surgical changes and devices: Lumbar spine postoperative change is seen.. Numerous pelvic postoperative clips are seen. Bowel: The previously seen oral contrast is continued further distally, with the majority of the contrast no longer seen and the remaining contrast seen within the colon. Dilated loops of small bowel can again be seen, which measure up to 4.6 cm. Soft tissues: No suspicious abdominal calcifications. Visualized solid organ contours appear normal in size. Bones: No suspicious bony lesions. IMPRESSION: Further distal passage the previously administered oral contrast. Differential diagnosis includes ileus or incomplete small bowel obstruction. Dictated by: Dallas Silver M.D. on 01/17/2021 at 7:22 Approved by: Dallas Silver M.D. on 01/17/2021 at 7:25
--- NOTE | 2021-01-17 08:04 | PC.NURSE ---
Addendum entered by Christiane Hanson R.N. 01/17/21 12:48: Patient showered, island barrier dressing replaced. [place] intact. Patient c/o pain 12/19, Tylenol administered. Original Note: Patient up to chair. A/O x 4. BT active x 4, abdomen is mildly distended, non-tender, patient reports BM's overnight. Voiding. Lungs CTA, diminished, 100% on RA. Pulses equal. Denies numbness or tingling in lower extremities. Back dsg is CDI. Saline locked at this time. Transferred via wheelchair for XRAY at 0807.
[2021-01-17] MEDS: SODIUM CHLORIDE 0.9% FLUSH 10 ML IV ×2 (08:09→20:27)
--- NOTE | 2021-01-17 10:53 | P.PN_ITS ---
Subjective Subjective Date Patient Seen: 01/17/21 Time Patient Seen: 11:19 Interval history: PT continues to pass liquid stool. He has been ambulating. Denies nausea. Exam Vital Signs (past 8 hours): - 01/17/21 05:00 01/17/21 07:30 01/17/21 08:00 Temperature 97.6 F Pulse Rate 61 58 L Respiratory Rate 16 15 Blood Pressure 112/62 Pulse Oximetry 100 100 97 01/17/21 09:00 Temperature Pulse Rate Respiratory Rate Blood Pressure Pulse Oximetry 98 Oxygen Delivery Method Room Air Oxygen Flow Rate 0 Narrative Exam Narrative: GENERAL: Alert, comfortable. Appears stated age. Answers questions promptly and appropriately. Vital signs noted. HENT: Normocephalic, atraumatic. Hearing intact. EYES: Conjunctiva pink, sclera white, no periorbital swelling. CARDIOVASCULAR: Regular rate. trace pedal edema. RESPIRATORY: Non-tachypneic, breathing comfortably on room air. GASTROINTESTINAL: Abdomen rounded, prominent, nontender MUSCULOSKELETAL: Equal tone and mass bilaterally. Objective Imaging Abdominal x-ray: My impression: Slightly improved, persistent low grade ileus Radiologist's impression: [address] [id number] ReportSigned Patient: Keith Nguyen Jr JMR#: [id number]: [id number]/Sex: 75 / MDate of Service: 01/17/21Loc: AC223- 1Accession Number: [id number] Procedure: XR KUB Ordering Provider: Urvashi Venegas MD PROCEDURE: XR KUB INDICATIONS: interval change in ileus TECHNIQUE: One view of the abdomen acquired. COMPARISON: [facility], [place], [place] SMALL BOWEL FOLLOW THROUGH, 01/15/2021, 20:29. [facility], CT, CT ABDOMEN PELVIS W CON, 01/15/2021, 18:24. [facility], CR, XR KUB, 01/16/2021, 10:31. FINDINGS: Surgical changes and devices: Lumbar spine postoperative change is seen.. Numerous pelvic postoperative clips are seen. Bowel: The previously seen oral contrast is continued further distally, with the majority of the contrast no longer seen and the remaining contrast seen within the colon. Dilated loops of small bowel can again be seen, which measure up to 4.6 cm. Soft tissues: No suspicious abdominal calcifications. Visualized solid organ contours appear normal in size. Bones: No suspicious bony lesions. IMPRESSION: Further distal passage the previously administered oral contrast. Differential diagnosis includes ileus or incomplete small bowel obstruction. Dictated by: Dallas Silver M.D. on 01/17/2021 at 7:22 Labs Result Diagrams: 01/17/21 05:37 01/17/21 05:37 Labs: Laboratory Results - last 24 hr 01/17/21 01/17/21 05:37 05:37 WBC 6.5 RBC 4.59 Hgb 13.3 L Hct 40.5 L MCV 88.2 MCH 28.9 MCHC 32.8 RDW 16.5 H Plt Count 324 Neut % (Auto) 59.6 Lymph % (Auto) 23.2 L [place] % (Auto) 14.2 H Eos % (Auto) 2.0 Baso % (Auto) 1.0 Neut # (Auto) 3900 Lymph # (Auto) 1500 [place] # (Auto) 900 Eos # (Auto) 100 Baso # (Auto) 100 Sodium 135 L Potassium 3.9 Chloride 101 Carbon Dioxide 27 BUN 40 H Creatinine 1.05 Estimated GFR > 60.0 BUN/Creatinine Ratio 38.1 H Glucose 106 Calcium 8.8 Magnesium 2.3 PFSH Medical History Arthritis Asthma Atrial fibrillation CAD (coronary artery disease) CAD (coronary artery disease) Difficult airway Difficult intravenous access Essential hypertension HLD (hyperlipidemia) HTN (hypertension) Leg edema Lower back pain KORTNEY on CPAP Prostate cancer (~2006) Sciatica Surgical History H/O excision of lamina of lumbar vertebra for decompression of spinal cord History of arthroplasty of right knee (~2015) History of arthroscopy of left shoulder History of bilateral carpal tunnel release History of surgery (01/2020) Hx of arthroscopy of left knee Hx of heart artery stent (10/2014) Hx of knee surgery Hx of prostatectomy Hx of tonsillectomy Stented coronary artery Social History household members: spouse Smoking Status: Never smoker alcohol intake: never Assessment & Plan Assessment and plan (1) Essential hypertension: Status: Chronic (2) CAD (coronary artery disease): Status: Chronic (3) Ileus: Status: Acute Assessment & Plan narrative: Pt admitted two days ago with CT scan that looked like SBO. He has passed many stools with SBFT. Post SBFT KUB and today's KUB look like he still has a low grade ileus. Advance to full liquid diet Ambulate as much as tolerated bowel regimen Minimize narcotics COVID-19 COVID-19 status: Negative Result date/Date tested (Pos, Neg/Pending): 01/15/21 Time Spent With Patient Time with patient: 25 - 35 minutes Quality VTE Deep Vein Thrombosis/Pulmonary Embolism Present on Admission: No
--- NOTE | 2021-01-17 11:08 | P.PN_ITS ---
Exam Vital Signs (past 8 hours): - 01/17/21 05:00 01/17/21 07:30 01/17/21 08:00 Temperature 97.6 F Pulse Rate 61 58 L Respiratory Rate 16 15 Blood Pressure 112/62 Pulse Oximetry 100 100 97 01/17/21 09:00 Temperature Pulse Rate Respiratory Rate Blood Pressure Pulse Oximetry 98 Oxygen Delivery Method Room Air Oxygen Flow Rate 0 Objective Labs Result Diagrams: 01/17/21 05:37 01/17/21 05:37 Labs: Laboratory Results - last 24 hr 01/17/21 01/17/21 05:37 05:37 WBC 6.5 RBC 4.59 Hgb 13.3 L Hct 40.5 L MCV 88.2 MCH 28.9 MCHC 32.8 RDW 16.5 H Plt Count 324 Neut % (Auto) 59.6 Lymph % (Auto) 23.2 L [place] % (Auto) 14.2 H Eos % (Auto) 2.0 Baso % (Auto) 1.0 Neut # (Auto) 3900 Lymph # (Auto) 1500 [place] # (Auto) 900 Eos # (Auto) 100 Baso # (Auto) 100 Sodium 135 L Potassium 3.9 Chloride 101 Carbon Dioxide 27 BUN 40 H Creatinine 1.05 Estimated GFR > 60.0 BUN/Creatinine Ratio 38.1 H Glucose 106 Calcium 8.8 Magnesium 2.3 PFSH Medical History Arthritis Asthma Atrial fibrillation CAD (coronary artery disease) CAD (coronary artery disease) Difficult airway Difficult intravenous access Essential hypertension HLD (hyperlipidemia) HTN (hypertension) Leg edema Lower back pain KORTNEY on CPAP Prostate cancer (~2006) Sciatica Surgical History H/O excision of lamina of lumbar vertebra for decompression of spinal cord History of arthroplasty of right knee (~2015) History of arthroscopy of left shoulder History of bilateral carpal tunnel release History of surgery (01/2020) Hx of arthroscopy of left knee Hx of heart artery stent (10/2014) Hx of knee surgery Hx of prostatectomy Hx of tonsillectomy Stented coronary artery Social History household members: spouse Smoking Status: Never smoker alcohol intake: never Assessment & Plan Assessment & Plan narrative: Patient is doing well after admission for ilieus. He had multiple BM and is mobilizing with PT. Surgery team would like to monitor him another day and plan for discharge tomorrow. I agree with the plan. On exam, his dressing is clean and dry. He is neuro intact. Plan to d/c tomorrow and keep previous f/u with me in clinic.
--- NOTE | 2021-01-17 11:22 | CM.DPC ---
Addendum entered by STEPHANE Rogers 01/17/21 13:59: ADD: Per PT, pt did really well with CG training and recommending safe d/c home with HH vs outpt PT. SW met bedside with pt, spouse, and adult son and discussed possible option of HH vs outpt. Family and both both feel it would be very challenging to get in and out of vehicle for outpt appointments and preference is HH. No HH hx so SW discussed HH services and frequency and provided the HH Choice List. Currently only option for HH on [facility] is [facility] or [facility] and no pt preference. SW made referral to [facility] based on vendor calendar for this week and called [facility] with referral and faxed initial clinicals for review and updated on likely d/c home tomorrow and [facility] confirms they can open the pt within 48 hrs. SW provided [facility] brochure to spouse and discussed that [facility] will be in contact to schedule first home visit after d/c. F2F and MD orders will need to be signed tomorrow as Surgeon has already rounded on pt and left the building. Plan: SW to follow for plan of home with new [facility] tomorrow if remains stable via spouse and son's POV and will need Surgeon to sign F2F. BF Original Note: DCP Cont: Per Hospitalist, signed off on pt as they were consulting and pt medically stable currently. Per Jose GARRETT, rounded on pt today and pt has progressed well and Ortho agreeable with either home vs SNF pending CG training and safety recommendations. Per Surgeon, pt still with some illeus and fully advancing pt's diet today with plan of likely d/c tomorrow. SW met with pt's spouse Olivia, oldest son, and Dr. Crooks as pt was showering and spouse still quite anxious about pt discharging home but very thankful and appreciative of the information from Ortho MD Dr. Crooks and very appreciative of getting to do CG training with PT today towards determining if they feel pt safe for d/c home vs SNF. RN updated and PT bedside now beginning CG training with pt and family present. Plan: SW to follow closely after CG training towards determining d/c home with spouse vs SNF tomorrow. STEPHANE Rogers
--- NOTE | 2021-01-17 11:29 | PT.IPTN ---
Current Diagnoses Obstructive sleep apnea (adult) (pediatric) (01/15/21) Essential (primary) hypertension (01/15/21) Atherosclerotic heart disease of [place] coronary artery without angina pectoris (01/15/21) Ileus, unspecified (01/15/21) Dependence on other enabling machines and devices (01/15/21) Physical Therapy Treatment Note M2 PT-IP Current Condition Start: 01/16/21 13:21 Freq: NEEDED Status: Active Protocol: Document 01/16/21 11:35 AB (Rec: 01/16/21 13:34 AB [email or web address]) Physical Therapy Current Condition Current Condition Evaluation Date 01/16/21 Treatment Diagnosis bowel obstuction; s/p TLIF; difficulty in walking Onset Date 01/15/21 Precautions Lumbar Precautions Log Roll,No Twisting,Limit Bending,Lifting Restriction of 10 lbs,Gait Belt above Incisional Area M3 PT-IP Subjective Start: 01/16/21 13:21 Freq: NEEDED Status: Active Protocol: Document 01/17/21 11:29 AW (Rec: 01/17/21 12:15 AW [id number]) Subjective Physical Therapy Visit Type Type Treatment Note Visit Start Time 11:04 Visit Stop Time 11:29 Total Visit Minutes 25 Notes Pt's and son present throughout to participate in caregiver education. Number of BANKING PARALEGAL Visits 0 Physical Therapy Visit Comments Patient Comments Pt just finished shower with nursing and is willing to participate with PT Patient Goals Return home with assist Therapy Pain Assessment Pain When Pain Assessed At Rest Pain Present Pain Present Denied Pain Location back Scale Used pt denies pain except in bed M4 PT-IP Mobility and Gait Start: 01/16/21 13:21 Freq: NEEDED Status: Active Protocol: Document 01/17/21 11:29 AW (Rec: 01/17/21 12:15 AW [id number]) PT-Bed Mobility Assessment Rolling Type of Rolling Log Rolling,Roll to Left Level of Assist Standby Assistance Supine to Sit Supine to Sit Standby Assistance Sit to Supine Sit to Supine Standby Assistance Scooting Scooting to Edge of Bed Standby Assistance Scooting Up and Down in Bed Standby Assistance PT-Transfer Assessment Sit to and From Stand Sit to and from Stand Standby Assistance Equipment Transfer Assistive Device Gait Belt,Front Wheeled Walker ,4 Wheeled Walker Orthotic/Prosthetic Devices or Brace: No Transfers Transfer Destination Bed,Chair Transfer Technique ambulated with FWW/4WW Transfer Ability Level of Assist Standby Assistance,Use of Upper Extremities Comments Mobility Comments PT answered all questions about precautions and mobility at home. Pt was in the chair and able to do both upper and lower body dressing SBA with min cues for decreased lumbar flexion. He stood SBA and used the FWW to ambulate 160 feet to the stairs. Gait speed was slower than normal but safe for household and community ambulation. Pt completed stair assessment SBA and returned to the room in similar fashion . In the room, pt completed bed mobility/log roll from left EOB in and out SBA no cues required. He then ambulated 120 feet with 4WW SBA. Returning to the room, pt transferred to the chair SBA. He was left with call light and all needs in reach. Gait Assessment Gait Gait Assistance Required: Standby Assistance Distance (Feet) 300 Able to Maintain Weight Bearing Status Yes During Gait Assistive Devices Assistive Device Front Wheeled Walker,4 Wheeled Walker Orthotic/Prosthetic Devices or Brace: No Gait Deviations General Gait Pattern Decreased Stride Length, Decreased Feet Clearance,Wide Based Gait Factors Limiting Gait Function Factors Limiting Gait Function Decreased Activity Tolerance, Decreased Strength,Limited Range of Motion,Pain Comments Gait Comments Pt ambulated safely with FWW, minimal weightbearing through UE's. Pt then ambulated safely with 4WW and will be able to use his 4WW at home. Stair Climbing Assessment Evaluation Level of Assist On Stairs Standby Assistance Devices Stair Climbing Assistive Devices Left Railing,Right Railing Technique/Endurance Stair Climbing Direction Ascend and Descend Stair Climbing Technique Step Over Step Number of Steps Climbed 3 Stair Climbing Set # Repetitions (reps) 2 Comments Stair Climbing Comments Pt and his spouse agreed he would be able to navigate stairs safely at home. PT-Balance Assessment Sitting Balance and Reactions Static Sitting Balance Ability Good Dynamic Sitting Balance Ability Good Standing Balance and Reactions Static Standing Balance Ability Good Dynamic Standing Balance Ability Good Device Used FWW; 4WW M5 PT-IP Objective Assessments Start: 01/16/21 13:21 Freq: NEEDED Status: Active Protocol: Document 01/16/21 11:35 AB (Rec: 01/16/21 13:34 AB [id number]) Orientation Orientation/Cognition Level of Alertness Alert Language Function Ability No Deficits Noted Safety Awareness Understands Safety Issues Memory Description No Deficits Noted Gross Range of Motion Lower Extremity ROM Assessment Within Functional Limits Strength Lower Extremity Strength Assessment Within Functional Limits Coordination Assessment Gross Coordination Gross Coordination WNL Sensation Assessment Sensation Gross Sensation WNL Muscle Tone Muscle Tone WNL Yes M6 PT-IP Treatment Start: 01/16/21 13:21 Freq: NEEDED Status: Active Protocol: Document 01/17/21 11:29 AW (Rec: 01/17/21 12:15 AW [id number]) Physical Therapy Treatment Education Education Provided Precautions,Weight Bearing Status,Safety Other Treatments Other Treatment Performed Reinforced precautions and safety awareness with pt and his . M7 PT-IP Assessment and Plan Start: 01/16/21 13:21 Freq: NEEDED Status: Active Protocol: Document 01/17/21 11:29 AW (Rec: 01/17/21 12:15 AW [id number]) PT Summary Assessment and Plan Potential Rehabilitation Potential Good Status of Condition at Evaluation Stable Summary Impairments Pain,ROM,Strength,Balance, Coordination,Sensation,Tone, Cognition,Bed Mobility, Transfers,Gait,Activity Tolerance Progress Towards Goals Progressing Toward Goals Assessment Summary Pt required no more than SBA for safe mobility with FWW and 4WW equally. Pt will be safe to discharge home with family assist and HH vs OP PT once medically stable. Goals Bed Mobility Goal Independent Transfer Goal Independent,Front Wheeled Walker Gait Goal Independent,Front Wheel Walker Gait Distance 250 Other Goals up/down 16 steps L rail ascending SBA Days to Meet Goals 4 Frequency of Treatment Frequency Of Treatment Once a Day Treatment Plan Physical Therapy Treatment Plan Bed Mobility Training,Transfer Training,Gait Training, Therapeutic Exercise,Balance Retraining,Post Op Education, Discharge Planning,Hot or Cold Pack,Neuromuscular Re-ed, Coordination Retraining,Manual Therapy Other Recommendations and Next Treatment gait training with 4WW Focus Precautions Lumbar Precautions Log Roll,No Twisting,Limit Bending,Lifting Restriction of 10 lbs,Gait Belt above Incisional Area Recommendations To Nursing Amount of Assist Needed Independent Discharge Recommendations PT Discharge Recommendations Home with Assistance,Home Health,Outpatient PT Transportation Needs at Discharge Private Vehicle
--- NOTE | 2021-01-17 13:58 | PC.NURSE ---
STOCKROOM ATTENDANT Note: Notified [facility] regarding 223 belongings. Spoke w/Meghan (Aid), they will coordinate a time to bring belongs over later this evening. [phone]. JOHANNA Grande Notified.
[2021-01-17] MEDS: KETOROLAC 30 MG/ML VIAL IV (15:49)
[2021-01-17] MEDS: ENOXAPARIN 40 MG/0.4 ML SYRINGE SUBCUT (20:25)
[2021-01-17] MEDS: SENNOSIDES 8.6 MG TABLET 17.2 MG PO (20:26)
[2021-01-17] MEDS: lisinopriL 5 MG TABLET 10 MG PO (20:27)
[2021-01-18] MEDS: SODIUM CHLORIDE 0.9% FLUSH 10 ML IV ×3 (00:08→11:59)
[2021-01-18] MEDS: KETOROLAC 30 MG/ML VIAL IV ×2 (00:08→11:57)
[2021-01-18 01:43] VITALS: BP 111/53; PULSE 54; RESP 18; TEMP 36.6; O2SAT 98
--- NOTE | 2021-01-18 01:56 | PC.NURSE ---
patient is alert and oriented but with gruff demeanor and flat affect. Breath sounds diminished at bases but CTA with RA sat of 98%. Wearing CPAP for sleep. HRR but bradycardic with rate in 50's. Denies nausea. BT hypoactive but did have loose stools last night; none since. Denies dysuria, frequency or urgency with urination. Is moving self in/out of bed and taking walks in [place] with walker; appears steady on feet and denies weakness. Dressing to back is CDI; noted bruising below and to left side of dressing. Complained of 6/10 burning, sharp, throbbing pain but was too early to give either Tylenol or Toradol so discussed with [facility], and order received for additional Toradol dose; ice also applied for additional comfort. Has numbness in right 2nd/3rd toes; states he has made MD aware. Is refusing to wear SCD's as up frequently by himself. Fall risk score is high but patient refusing to allow alarm to be used and refusing to call for assistance when getting up despite request to do so.
[2021-01-18] MEDS: ACETAMINOPHEN 325 MG TABLET 650 MG PO ×2 (02:04→08:07)
[2021-01-18 05:15] VITALS: O2SAT 99
[2021-01-18 05:37] LABS: Add Manual Diff / Slide Review NO; Basophils Absolute Auto 0 /uL (0-100); Basophils Percent Auto 0.7 % (0-2); Eosinophils Absolute Auto 200 /uL (0-450); Eosinophils Percent Auto 2.6 % (2-4); Hematocrit 39.9 % (41-53); Hemoglobin 13.2 g/dL (13.5-17.5); Lymphocytes Absolute Auto 1500 /uL (1100-4500); Lymphocytes Percent Auto 22.2 % (25-40); Mean Corpuscular HGB Conc 32.9 % (30-36); Mean Corpuscular Hemoglobin 29.1 PG (26-34); Mean Corpuscular Volume 88.2 fL (80-100); Monocytes Absolute Auto 1000 /uL (0-900); Monocytes Percent Auto 14.7 % (3-14); Neutrophils Absolute Auto 4100 /uL (1500-7000); Neutrophils Percent Auto 59.8 % (50-75); Platelet Count 321 X10^3/uL (150-400); Red Blood Cell Count 4.53 X10^6/uL (4.5-5.9); Red Cell Distribution Width 16.5 % (11.6-14.8); White Blood Cell Count 6.9 X10^3/uL (4.5-11.0)
[2021-01-18 05:44] LABS: Blood Urea Nitrogen 40 mg/dL (9-20); Calcium 8.8 mg/dL (8.4-10.2); Carbon Dioxide 26 mmol/L (22-32); Chloride 102 mmol/L (98-107); Estimated Glomerular Filt Rate > 60.0 mL/min (>60); Glucose 106 mg/dL (80-110); HEMOLYSIS < 15 (0-50); Magnesium 2.2 mg/dL (1.6-2.3); Potassium 3.6 mmol/L (3.4-5.1); Sodium 136 mmol/L (137-145)
[2021-01-18 05:47] VITALS: BP 121/75; PULSE 61; RESP 18; TEMP 36.6; O2SAT 99
--- NOTE | 2021-01-18 07:15 | DI.RAD.S_ITS ---
PROCEDURE: XR KUB INDICATIONS: interval follow up ileus TECHNIQUE: One view of the abdomen acquired. COMPARISON: [facility], CR, XR KUB, 01/17/2021, 7:59. FINDINGS: Surgical changes and devices: Lumbar spine fixation hardware. Bowel: Dilated loops of small bowel have increased diameter compared to January 17, 2021. Largest loop of small bowel measures 4.6 centimeters in the current study. Soft tissues: No suspicious abdominal calcifications. Visualized solid organ contours appear normal in size. Bones: No suspicious bony lesions. IMPRESSION: Worsening small bowel dilatation which could represent progression of ileus or small-bowel obstruction. Dictated by: Nirmala Tomas MD, PhD on 01/18/2021 at 8:08 Approved by: Nirmala Tomas MD, PhD on 01/18/2021 at 8:10
[2021-01-18 07:59] VITALS: PULSE 61; RESP 16; O2SAT 100
--- NOTE | 2021-01-18 08:01 | P.DS_ITS ---
History of Present Illness History of Present Illness Date Patient Seen: 01/18/21 Time Patient Seen: 08:02 Chief complaint: obstructed bowel Narrative: The patient was readmitted to the hospital after his spine surgery, with bowel obstructive symptoms and was found to have an ileus. He was evaluated and treated with Gastrografin small-bowel follow-through, which was effective. Discharge Providers Provider Date of admission: 01/17/21 15:04 Discharge Date: 01/18/21 Primary care physician: Kareem Sears MD Consults: 01/15/21 21:36 Consult to Discharge Planning Routine Comment: Consult to Orthopedic Surgery Urgent Comment: Consulting Provider: Andie Crooks Reason for consultation: post op management Has provider been notified: Yes Consult to Physical Therapy Evaluate & Treat Comment: Physician Instructions: Evaluate and Treat Consult to Physician Urgent Comment: Consulting Provider: Saira Reed Reason for consultation: manage medical issues while npo Has provider been notified: Yes 01/16/21 12:21 Consult to Occupational Therapy Evaluate & Treat Comment: Physician Instructions: Evaluate and treat Discharge provider: Urvashi Venegas MD Summary Hospital Course Discharge Diagnosis: Ileus Hospital Course: Patient had a Gastrografin small-bowel follow-through which resulted in the Gastrografin passing all the way through to the colon, and multiple bowel movements. After that he was maintained on nonnarcotic pain regimen, and continued to pass stool and tolerate p.o.. He is now tolerating a full liquid diet, and can advance his diet as tolerated at home. Status at Discharge Cognitive/behavioral status at discharge: oriented Functional status at discharge: uses cane/walker Overall status at discharge: patient is progressing back to baseline Time Spent with Patient Time spent: Greater than 30 minutes Exam Vital Signs (past 8 hours): - 01/18/21 01:43 01/18/21 05:15 01/18/21 05:47 Temperature 97.8 F 97.9 F Pulse Rate 54 L 61 Respiratory Rate 18 18 Blood Pressure 111/53 L 121/75 Pulse Oximetry 98 99 99 01/18/21 07:59 Temperature Pulse Rate 61 Respiratory Rate 16 Blood Pressure Pulse Oximetry 100 Oxygen Delivery Method Room Air Oxygen Flow Rate 0 Narrative Exam Narrative: GENERAL: Alert, comfortable, wearing his street clothes. Appears stated age. Answers questions promptly and appropriately. Vital signs noted. HENT: Normocephalic, atraumatic. Hearing intact. EYES: Conjunctiva pink, sclera white, no periorbital swelling. CARDIOVASCULAR: Regular rate. Trace pedal edema. RESPIRATORY: Non-tachypneic, breathing comfortably on room air. GASTROINTESTINAL: Abdomen soft and non-distended, obese, rounded and protuberant, nontender. Not tympanic GENITALURINARY: No flank tenderness. MUSCULOSKELETAL: Equal tone and mass bilaterally. SKIN: Warm, dry, soft, appropriate color for ethnicity. No other lesions, rashes, or wounds. NEURO: Alert and Oriented X 3. No gross sensory deficits, or cognitive issues. PSYCH: Appropriate affect and mood. Objective Imaging Abdominal x-ray: My impression: Today's KUB series of persistent dilated loop of bowel, but much of the bowel appears normal. Official read pending. Labs Result Diagrams: 01/18/21 05:10 01/18/21 05:10 Labs: Laboratory Results - last 24 hr 01/18/21 01/18/21 05:10 05:10 WBC 6.9 RBC 4.53 Hgb 13.2 L Hct 39.9 L MCV 88.2 MCH 29.1 MCHC 32.9 RDW 16.5 H Plt Count 321 Neut % (Auto) 59.8 Lymph % (Auto) 22.2 L Starke % (Auto) 14.7 H Eos % (Auto) 2.6 Baso % (Auto) 0.7 Neut # (Auto) 4100 Lymph # (Auto) 1500 Starke # (Auto) 1000 H Eos # (Auto) 200 Baso # (Auto) 0 Sodium 136 L Potassium 3.6 Chloride 102 Carbon Dioxide 26 BUN 40 H Creatinine 1.00 Estimated GFR > 60.0 BUN/Creatinine Ratio 40.0 H Glucose 106 Calcium 8.8 Magnesium 2.2 [facility] Medical History Arthritis Asthma Atrial fibrillation CAD (coronary artery disease) CAD (coronary artery disease) Difficult airway Difficult intravenous access Essential hypertension HLD (hyperlipidemia) HTN (hypertension) Leg edema Lower back pain KORTNEY on CPAP Prostate cancer (~2006) Sciatica Surgical History H/O excision of lamina of lumbar vertebra for decompression of spinal cord History of arthroplasty of right knee (~2015) History of arthroscopy of left shoulder History of bilateral carpal tunnel release History of surgery (01/2020) Hx of arthroscopy of left knee Hx of heart artery stent (10/2014) Hx of knee surgery Hx of prostatectomy Hx of tonsillectomy Stented coronary artery Social History household members: spouse Smoking Status: Never smoker alcohol intake: never Discharge Assessment & Plan Assessment and Plan Assessment: Resolving ileus. Patient is tolerating p.o., ambulating, and passing gas and stool. Although his KUB is not completely normal, he is clinically appropriate to continue his recovery at home. Plan of Treatment: Slowly advanced diet as tolerated, minimize narcotics, ambulate frequently, use stool softeners and laxatives, avoid being sedentary. These instructions were given in detail to the patient, and instructions to the nurse to review she has instructions to the patient and his . Return precautions given for recurrent symptoms. Discharge Plan Discharge Plan Patient Disposition: Home Provider Discharge Comment: You were readmitted to the hospital with obstructive symptoms of the bowel from an ileus, which is a slowing of the intestines. This can be due to narcotic pain medication, being sedentary after surgery, and the effects of anesthesia from surgery. Important: Your ileus has improved at this time, but it has not completely resolved. Your symptoms and your x-ray have improved but your x-ray is still abnormal, and your symptoms can recur if you are sedentary, or from taking narcotic pain medication. At this point, you have been deemed appropriate for discharge to home to continue your recovery there. Important: Make sure you drink plenty of fluids and avoid eating things that are hard to digest. Stick to small meals, soft foods, and plenty of fluids. As you continue to recover, and you are no longer taking pain medication, you may liberalize your diet. Important: Walk around as much as possible. Your intestines are used to being in a mobile compartment, and function better with ambulation rather than being sedentary. Important: You should continue to follow the instructions that were previously given to you by Dr. Crooks on your prior discharge. As he has prescribed narcotic pain medication, please only use it when truly needed, and be sure use stool softeners or laxatives to counteract the effect of this medication. Presc riptions for Docusate and Senna were sent to your pharmacy. These may also be purchased over the counter, or substituted with your preferred laxative. Important: Please minimize narcotic pain medication as much as possible to avoid a recurrence of your ileus symptoms. You may take over the counter pain medicine to reduce your need for narcotic. Make sure you do not take more than 3000 mg of Acetaminophen per day from any source. There may be Acetaminophen in your prescription pain medication, cold medications or headache remedies. Using an NSAID such as ibuprofen or Aleve will help with inflammation. Do not take more than recommended. You may take it along with or instead of your prescribed pain medication so long as you do not have an allergy or sensitivity to NSAIDs. Discharge orders & Medications Prescriptions: New hydrocodone-acetaminophen 5-325 mg tablet 1 tab PO Q4-6H PRN (Reason: pain) Qty: 50 RF: 0 docusate sodium 100 mg capsule 100 mg PO BID Qty: 20 RF: 0 sennosides [senna] 8.6 mg tablet 17.2 mg PO BEDTIME Qty: 60 RF: 0 Continued aspirin 81 mg Tablet,Delayed Release (Dr/Ec) 81 mg PO DAILY RF: 0 lisinopril 5 mg Tablet 10 mg PO DAILY RF: 0 rosuvastatin 5 mg Tablet 2.5 mg PO DAILY RF: 0 acetaminophen 325 mg Tablet 650 mg PO Q6HR PRN (Reason: Pain, Mild (1-3)) Qty: 90 RF: 0 oxycodone 5 mg Tablet 5 mg PO Q3HR PRN (Reason: Pain, Moderate (4-6)) Qty: 60 RF: 0 Follow up/Referrals: Kareem Sears MD [Primary Care Provider] - Andie Crooks MD [Physician] - Diet/Activity/Treatments Diet: Diet as Tolerated and Full Liquid Diet comment: Advance your diet carefully. If symptoms return go back to clear liquids. Visit Report/Discharge Packet Instructions: DI for Ileus, DI for Prescription Opioid Use Discharge Data Primary Care Provider: Kareem Sears Quality VTE Deep Vein Thrombosis/Pulmonary Embolism Present on Admission: No
[2021-01-18 08:10] VITALS: BP 149/73; PULSE 55; RESP 18; TEMP 36.6; O2SAT 99
--- NOTE | 2021-01-18 11:27 | PT.IPTN ---
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 enabling machines and devices (01/17/21) Physical Therapy Treatment Note M2 PT-IP Current Condition Start: 01/16/21 13:21 Freq: NEEDED Status: Active Protocol: Document 01/16/21 11:35 AB (Rec: 01/16/21 13:34 AB [id number]) Physical Therapy Current Condition Current Condition Evaluation Date 01/16/21 Treatment Diagnosis bowel obstuction; s/p TLIF; difficulty in walking Onset Date 01/15/21 Precautions Lumbar Precautions Log Roll,No Twisting,Limit Bending,Lifting Restriction of 10 lbs,Gait Belt above Incisional Area M3 PT-IP Subjective Start: 01/16/21 13:21 Freq: NEEDED Status: Active Protocol: Document 01/18/21 11:14 DESHAWN (Rec: 01/18/21 11:27 LJ [id number]) Subjective Physical Therapy Visit Type Type Treatment Note Visit Start Time 11:02 Visit Stop Time 11:13 Total Visit Minutes 11 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 Agreed to walk one more time. Patient Goals Return home with assist Therapy Pain Assessment Pain When Pain Assessed At Rest Pain Present Pain Present Denied Pain M4 PT-IP Mobility and Gait Start: 01/16/21 13:21 Freq: NEEDED Status: Active Protocol: Document 01/18/21 11:14 DESHAWN (Rec: 01/18/21 11:27 LJ [id number]) PT-Transfer Assessment Sit to and From Stand Sit to and from Stand Standby Assistance Equipment Transfer Assistive Device Gait Belt,Front Wheeled Walker Orthotic/Prosthetic Devices or Brace: No Transfers Transfer Destination Chair Transfer Technique ambulated with FWW Transfer Ability Level of Assist Standby Assistance,Use of Upper Extremities Comments Mobility Comments Pt ambulated to stairs and back using FWW. No LOB but pt still moving slowly. He ascended and descended the stairs x1 and returned to room to await DC. Gait Assessment Gait Gait Assistance Required: Standby Assistance Distance (Feet) 300 Able to Maintain Weight Bearing Status Yes During Gait Assistive Devices Assistive Device Front Wheeled Walker Orthotic/Prosthetic Devices or Brace: No Gait Deviations General Gait Pattern Decreased Stride Length, Decreased Feet Clearance,Wide Based Gait Factors Limiting Gait Function Factors Limiting Gait Function Decreased Activity Tolerance, Decreased Strength,Limited Range of Motion,Pain Comments Gait Comments Pt without issues using FWW correctly in hallway 300 feet. Ambulated short distance be stairs without AD. Stair Climbing Assessment Evaluation Level of Assist On Stairs Standby Assistance Devices Stair Climbing Assistive Devices Left Railing,Right Railing Technique/Endurance Stair Climbing Direction Ascend and Descend Stair Climbing Technique Step Over Step Number of Steps Climbed 3 Stair Climbing Set # Repetitions (reps) 1 M5 PT-IP Objective Assessments Start: 01/16/21 13:21 Freq: NEEDED Status: Active Protocol: Document 01/16/21 11:35 AB (Rec: 01/16/21 13:34 AB [id number]) Orientation Orientation/Cognition Level of Alertness Alert Language Function Ability No Deficits Noted Safety Awareness Understands Safety Issues Memory Description No Deficits Noted Gross Range of Motion Lower Extremity ROM Assessment Within Functional Limits Strength Lower Extremity Strength Assessment Within Functional Limits Coordination Assessment Gross Coordination Gross Coordination WNL Sensation Assessment Sensation Gross Sensation WNL Muscle Tone Muscle Tone WNL Yes M6 PT-IP Treatment Start: 01/16/21 13:21 Freq: NEEDED Status: Active Protocol: Document 01/18/21 11:14 DESHAWN (Rec: 01/18/21 11:27 [id number]) Physical Therapy Treatment Education Education Provided Precautions,Weight Bearing Status,Safety M7 PT-IP Assessment and Plan Start: 01/16/21 13:21 Freq: NEEDED Status: Active Protocol: Document 01/18/21 11:14 DESHAWN (Rec: 01/18/21 11:27 [id number]) PT Summary Assessment and Plan Potential Rehabilitation Potential Good Status of Condition at Evaluation Stable Summary Impairments Pain,ROM,Strength,Balance, Coordination,Sensation,Tone, Cognition,Bed Mobility, Transfers,Gait,Activity Tolerance Progress Towards Goals Safe For Discharge,Goals Met Assessment Summary Pt has met goals and is safe for DC Goals Bed Mobility Goal Independent Transfer Goal Independent,Front Wheeled Walker Gait Goal Independent,Front Wheel Walker Gait Distance 250 Other Goals up/down 16 steps L rail ascending SBA Days to Meet Goals 4 Frequency of Treatment Frequency Of Treatment Once a Day Treatment Plan Physical Therapy Treatment Plan Bed Mobility Training,Transfer Training,Gait Training, Therapeutic Exercise,Balance Retraining,Post Op Education, Discharge Planning,Hot or Cold Pack,Neuromuscular Re-ed, Coordination Retraining,Manual Therapy Precautions Lumbar Precautions Log Roll,No Twisting,Limit Bending,Lifting Restriction of 10 lbs,Gait Belt above Incisional Area Recommendations To Nursing Amount of Assist Needed Independent Discharge Recommendations PT Discharge Recommendations Home with Assistance,Home Health,Outpatient PT Transportation Needs at Discharge Private Vehicle
--- NOTE | 2021-01-18 13:37 | PC.NURSE ---
PA took the patients teja out, except 3-4 on the right incision side, steri strips were placed over patient's incision and coversite dressing was applied.
--- NOTE | 2021-01-18 14:04 | PC.NURSE ---
Patient discharged to home, picked up by spouse in private vehicle. All belongings returned back to patient. Discharge paperwork discussed with patient and handouts given including new medication script, education, and patient followup information. Patient verbalizes understanding and denies any questions. IV discontinued, intact. Patient stable at time of discharge, no s/s of distress.
--- NOTE | 2021-01-18 17:00 | CM.DPC ---
DCP Continued: Completed Home Health documents and faxed, orders and F2F to [facility]. Spoke with Destini at [facility] who confirmed intake will be completed either Monday01/19/21 or Monday01/20/21. Per Pam CALDERÓN patient is aware and has been provided with [facility] pamphlet. Will confirm with nursing to provide additional information. PLAN: Anticipate D/C home with home health. CM Team to continue to follow. Signature to be called upon d/c. STEPHANE Toscano MSW Student
== END 2021-01-18 14:03 | disposition home or self-care (01) | DRG 390 ==
LOC: ED 19:27 → AC 21:00
PROVIDERS: Surgery; Admitting Provider Specialist; Emergency Provider Emergency Medicine; PCP Family Medicine Sports Medicine; Referring Provider Emergency Medicine; Visit Provider Nurse Practitioner Family
DX: K56.7 Ileus, unspecified (principal); I48.91 Unspecified atrial fibrillation; I25.10 Atherosclerotic heart disease of native coronary artery without angina pectoris; I10 Essential (primary) hypertension; E78.5 Hyperlipidemia, unspecified; G47.33 Obstructive sleep apnea (adult) (pediatric); Z85.46 Personal history of malignant neoplasm of prostate; Z20.822 Contact with and (suspected) exposure to COVID-19; Z95.9 Presence of cardiac and vascular implant and graft, unspecified; Z98.890 Other specified postprocedural states
CPT/HCPCS: 36415; 36592; 74018; 74177; 74250; 80048; 80053; 81003; 82550; 83605; 83690; 83735; 84484; 85025; 87635; 93005; 94660; 94760; 96361; 96374; 96375; 97116; 97161; 97530; 99222; 99231; 99232; 99238; 99284; 99406; C9803; G0378; J1650; J1885; J2405; Q9967

== ENCOUNTER → 2021-04-17 10:10 | Outpatient (CLI) | payer MEDICARE, OTHER, SELFPAY ==
[2021-01-15 21:29] VITALS: BMI 38.3
[2021-04-17 11:26] LABS: COVID19 -Nasal RAPID Negative (Negative)
== END ==
PROVIDERS: PCP Family Medicine Sports Medicine; Referring Provider Physician Assistant; Visit Provider Physician Assistant
DX: Z20.822 Contact with and (suspected) exposure to COVID-19 (principal)
CPT/HCPCS: 87635; C9803

== ENCOUNTER → 2021-05-06 09:21 | Outpatient (CLI) | payer MEDICARE, OTHER, SELFPAY ==
[2021-01-15 21:29] VITALS: BMI 38.3
[2021-05-06 11:26] LABS: COVID19 -Nasal RAPID Negative (Negative)
== END ==
PROVIDERS: PCP Family Medicine Sports Medicine; Visit Provider Nurse Practitioner
DX: Z20.822 Contact with and (suspected) exposure to COVID-19 (principal)
CPT/HCPCS: 87635

== ENCOUNTER → 2021-06-04 09:02 | Outpatient (CLI) | payer MEDICARE, OTHER, SELFPAY ==
[2021-01-15 21:29] VITALS: BMI 38.3
[2021-06-04 11:51] LABS: COVID-19 CEPHEID PCR (VTM/NP) Negative (Negative)
== END ==
PROVIDERS: PCP Family Medicine Sports Medicine; Visit Provider Nurse Practitioner
DX: Z20.822 Contact with and (suspected) exposure to COVID-19 (principal)
CPT/HCPCS: C9803; U0003

== ENCOUNTER → 2022-03-22 12:43 | Outpatient (CLI) | payer MEDICARE, OTHER, SELFPAY ==
[2021-01-15 21:29] VITALS: BMI 38.3
== END ==
PROVIDERS: PCP Family Medicine Sports Medicine; Referring Provider Orthopaedic Surgery Orthopaedic Surgery of the Spine; Visit Provider Orthopaedic Surgery Orthopaedic Surgery of the Spine
DX: M48.061 Spinal stenosis, lumbar region without neurogenic claudication (principal); Z53.20 Procedure and treatment not carried out because of patient's decision for unspecified reasons